=== PATIENT | female | born 1940 | race Caucasian/White ===

== ENCOUNTER 2020-03-09 13:25 | Outpatient (CLI) | payer MEDICARE, SELFPAY ==
--- NOTE | ~2020-03-09 | US_ITS ---
EXAMINATION: US carotid duplex BI DATE: 03/09/2020 14:05 INDICATION: Near syncope. Coronary artery disease. TECHNIQUE: Grayscale, color Doppler, and pulsed Doppler images of the cervical carotid arteries were obtained. The degree of vessel stenosis is placed in one of the following categories: normal, <50%, 5 0-69%, >=70% but less than near-occlusion, near-occlusion, or total occlusion. Note that percent sten osis relative to normal distal artery lumen diameter is indirectly measured from velocity measurement s as described by Roberto, et al. Radiology 2003; 229:340-346. COMPARISON: None. FINDINGS: RIGHT: The right common carotid artery (CCA) peak systolic velocity (PSV) is 113 cm/s. The right internal ca rotid artery (ICA) PSV is 64 cm/s. The right ICA end-diastolic velocity (EDV) is 10 cm/s. The right I CA/CCA PSV ratio is 0.6. Grayscale and color Doppler images yield an estimate of <50% diameter reduct ion from plaque in the ICA. The external carotid artery (ECA) PSV is 84 cm/s. There is antegrade flow in the right vertebral artery. LEFT: The left CCA PSV is 77 cm/s. The left ICA PSV is 54 cm/s. The left ICA EDV is 14 cm/s. The left ICA/C CA PSV ratio is 0.7. Grayscale and color Doppler images yield an estimate of <50% diameter reduction from plaque in the ICA. The ECA PSV is cm/s. There is antegrade flow in the left vertebral artery. IMPRESSION: 1. <50% stenosis in the right internal carotid artery. 2. <50% stenosis in the left internal carotid artery. Reviewed, dictated and finalized at location A.
== END 2020-03-09 13:26 | disposition home or self-care (01) ==
PROVIDERS: PCP Family Medicine; Visit Provider Internal Medicine Cardiovascular Disease
DX: I25.118 Atherosclerotic heart disease of native coronary artery with other forms of angina pectoris (principal); E78.5 Hyperlipidemia, unspecified; R55 Syncope and collapse; I65.23 Occlusion and stenosis of bilateral carotid arteries
CPT/HCPCS: 93880

== ENCOUNTER 2021-01-11 10:58 | Outpatient (CLI) | payer MEDICARE, MEDICAID, SELFPAY ==
--- NOTE | ~2021-01-11 | US_ITS ---
EXAMINATION: US venous doppler [facility] DATE: 01/11/2021 11:33 INDICATION: Left lower limb pain. TECHNIQUE: Grayscale ultrasound images without and with compression and Doppler ultrasound images of the left lower extremity veins were obtained. COMPARISON: Ultrasound 12/14/2015 FINDINGS: The visualized portions of left common femoral vein, profunda (deep) femoral vein, femoral vein, popl iteal vein, posterior tibial veins, and greater saphenous vein outflow are patent. IMPRESSION: 1. No deep venous thrombosis. Reviewed, dictated and finalized at location A.
--- NOTE | ~2021-01-11 | XR_ITS ---
EXAMINATION: XR lg joint inject/asp w image DATE: 01/11/2021 13:08 INDICATION: Left knee pain. TECHNIQUE: A time-out was performed to verify the patient's name, date of , and procedure to b e performed. The procedure including the risks, benefits, and alternatives was discussed with the pat ient. Risks discussed included bleeding and infection. The patient understood the risks and agreed to proceed. The skin overlying the left knee joint was prepped and draped in usual sterile fashion. A nesthetic was administered with 1% lidocaine subcutaneously. A 18 G needle was advanced under fluoro scopic guidance into the joint. Fluid was aspirated. There were no immediate complications. Fluorosco py exposure time was 0.0 minutes. The total number of images was 1. FINDINGS: Real-time fluoroscopy demonstrates a total left knee arthroplasty with localization of the knee joint. IMPRESSION: 1. Fluoroscopy guided left knee joint aspiration yielding 20 mL audrey-colored fluid. Reviewed, dictated and finalized at location A. IMPRESSION: 1. Fluoroscopy guided left knee joint aspiration yielding 20 mL audrey-colored f luid.
[2021-01-11 14:03] LABS: Crystals Synovial Fluid None Seen (None Seen)
[2021-01-11 14:11] LABS: Appearance Synovial Fluid Cloudy (Clear); Color Synovial Fluid Yellow (Colorless); Source Synovial Fluid Synovial fluid
[2021-01-11 14:12] LABS: Nucleated Cell Synovial Fluid 1641 /uL (0-200); RBC Synovial Fluid 9946 /uL (0-0)
[2021-01-11 14:14] LABS: Lymphocytes Synovial Fluid 64 %; Neutrophils Synovial Fluid 30 % (0-25)
[2021-01-11 14:15] LABS: Monocytes Synovial Fluid 6 %
== END 2021-01-11 10:59 | disposition home or self-care (01) ==
LOC: ANHIMG 11:00
PROVIDERS: PCP Family Medicine; Visit Provider Orthopaedic Surgery
DX: M79.662 Pain in left lower leg (principal); M25.562 Pain in left knee
CPT/HCPCS: 20610; 77002; 87070; 87075; 87205; 88108; 89051; 89060; 93971

== ENCOUNTER 2021-04-25 09:33 | Emergency (ER) | payer MEDICARE, MEDICAID, SELFPAY ==
--- NOTE | ~2021-04-25 | CT_ITS ---
EXAMINATION: CT abdomen pelvis w con EXAM DATE: 04/25/2021 11:25 INDICATION: RLQ pain . TECHNIQUE: Spiral CT of the abdomen and pelvis was performed following intravenous injection of 100 m L Omnipaque 350. Axial, coronal and sagittal images of the abdomen and pelvis were reviewed. The do se-length product (DLP) for this examination was 797.70 mGy-cm. The exposure was tailored according to patient size (auto mA exposure control), and iterative reconstruction (ASIR) was used as additiona l dose reduction technique. Comparison is made to prior examination from 03/14/2018. FINDINGS: The liver, spleen, adrenal glands and pancreas are unremarkable. Status post cholecystectom y. There is severe common bile duct and left liver lobe biliary dilation. Suspect choledocholithiasis . Progression in amount of dilation compared to 2018.Portal and splenic veins are patent. Kidneys en emilee symmetrically. There is no hydronephrosis. The uterus is not identified and has likely been surgically resected. The bladder is unremarkable. There is no retroperitoneal or pelvic lymphadenop athy. There is mild scattered arteriosclerotic disease. Surgical changes from right hemicolectomy with intact ileocolic anastomosis and also rectosigmoid joy stomosis. There is mild scattered colonic diverticulosis. There is no adjacent inflammatory change t o suggest diverticulitis. There is moderate-sized gastroesophageal hiatal hernia. There is expected amount of colonic stool. No free intraperitoneal gas. The heart is normal in size. Cardiac pacema ker/AICD leads. There are no pericardial or pleural effusions. The lung bases are unremarkable. Lum bar fusion hardware. IMPRESSION: 1. Chronic biliary dilation, pneumobilia with progression compared to 2018. Choledocholithiasis. 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 2. Colonic surgical changes and mild scattered diverticulosis. Reviewed, dictated and finalized at location B. IMPRESSION: 1. Chronic biliary dilation, pneumobilia with progression compared to 2018. Ch oledocholithiasis. Consider checking bilirubin to exclude acute obstruction. 2. Colonic surgical changes and mild scattered diverticulosis.
[2021-04-25 09:43] VITALS: BP 131/79; PULSE 63; RESP 16; TEMP 36.9; O2SAT 99
[2021-04-25 10:02] LABS: Basophils Absolute Auto 0.1 K/mm3 (0.0-0.1); Basophils Percent Auto 1.1 % (0.2-1.2); Eosinophils Absolute Auto 0.5 K/mm3 (0-0.3); Eosinophils Percent Auto 5.8 % (0-4.4); Hematocrit 40.9 % (37.0-47.0); Hemoglobin 12.8 g/dL (12.0-15.0); Immature Granulocyte Absolute 0.02 K/mm3 (0.00-0.031); Immature Granulocyte Percent A 0.2 % (0-0.5); Lymphocytes Absolute Auto 2.18 K/mm3 (0.9-3.2); Lymphocytes Percent Auto 23.9 % (18.3-44.2); Mean Corpuscular HGB Conc 31.3 g/dl (32-36); Mean Corpuscular Hemoglobin 29.2 pg (26-34); Mean Corpuscular Volume 93.2 fl (80-100); Monocytes Absolute Auto 0.7 K/mm3 (0.1-0.6); Monocytes Percent Auto 7.1 % (2.6-8.5); Neutrophils Absolute Auto 5.6 K/mm3 (1.3-6.7); Neutrophils Percent Auto 61.9 % (45.5-73.1); Platelet Count Result 348 k/mm3 (150-375); Red Blood Count 4.39 M/mm3 (4.2-5.4); Red Cell Distribution Width 12.5 % (11.5-14.5); White Blood Count 9.1 K/mm3 (4.5-10.0)
[2021-04-25 10:26] LABS: Alanine Aminotransferase 6 U/L (4-35); Albumin Level 4.4 g/dL (3.5-5.1); Alkaline Phosphatase 53 U/L (38-126); Anion Gap 10 mmol/L (8-16); Aspartate Amino Transferase 23 U/L (14-36); Bilirubin,Total 0.4 mg/dL (0.2-1.3); Blood Urea Nitrogen 23 mg/dL (7-17); Calcium 9.5 mg/dL (8.4-10.2); Carbon Dioxide 26 mmol/L (22-30); Chloride 104 mmol/L (98-107); Estimated CRCL calculation 47 ml/min; Estimated Glomerular Filt Rate 60; Glucose 101 mg/dL (65-110); Lipase 79 U/L (23-300); Potassium 4.7 mmol/L (3.4-5.0); Sodium 140 mmol/L (137-145)
[2021-04-25] MEDS: MORPHINE SULFATE (*CRX) 4 MG/ML INJ IV PUSH ×2 (11:12→13:52)
[2021-04-25] MEDS: ONDANSETRON INJ 4 MG/2 ML VIAL IV PUSH (11:12)
[2021-04-25 11:13] LABS: Add Urine Microscopic? YES; Appearance Urine Clear (Clear); Bilirubin Urine Negative (Negative); Blood Urine 1+ (Negative); Color Urine Yellow (Yellow); Glucose Urine UA Negative (Negative); Hyaline Casts Urine 30-49 /lpf; Ketones Urine Negative (Negative); Leukocyte Esterase Ur Negative LEU/UL (Negative); Mucus Urine Rare /lpf; Nitrate Urine Negative (Negative); Protein Urine Negative (Negative); Specific Grav Ur 1.024 (1.001-1.035); Squamous Epithelial Cell Urine Occasional /hpf (Few); Urobilinogen Urine Negative mg/dL (<2.0); WBC Urine 0-3 /hpf
[2021-04-25 12:50] VITALS: BP 194/64; PULSE 65; RESP 18; O2SAT 95
--- NOTE | 2021-04-25 13:29 | ED.GENADULT ---
HPI - General Adult General Chief complaint: Abdominal Pain Stated complaint: Abd Pain Time Seen by Provider: 04/25/21 10:47 History of Present Illness HPI narrative: Patient is a 80-year-old female who presents ER with abdominal pain worsening over the last month. Its burning like a hot poker is sticking in her. It is located specifically over a scar in her right lower abdomen. It is tender to touch and with any sort of movement. No known injury. Denies fevers or chills or sweats. No nausea/vomiting/diarrhea. She is not distended or bloated. No history of bowel obstruction. Has been taking [place] without relief of discomfort. Related Data Home Medications Medication Instructions Recorded Confirmed aspirin 81 mg tablet,delayed 81 mg PO DAILY 01/11/21 01/11/21 release atenolol 50 mg tablet 50 mg PO DAILY 01/11/21 01/11/21 carbidopa 25 mg-levodopa 100 mg 1 tablet PO QHS 01/11/21 01/11/21 tablet hydrocodone 10 mg-acetaminophen 1 tablet PO QHS PRN 01/11/21 01/11/21 325 mg tablet levothyroxine 50 mcg capsule 50 mcg PO DAILY 01/11/21 01/11/21 losartan 50 mg tablet 50 mg PO DAILY 01/11/21 01/11/21 omeprazole 40 mg capsule,delayed 40 mg PO DAILY 01/11/21 01/11/21 release torsemide 10 mg tablet 10 mg PO QAM 01/11/21 01/11/21 Allergies Allergy/AdvReac Type Severity Reaction Status Date / Time meperidine Allergy Mild Rash Verified 04/25/21 10:44 celecoxib Allergy Unknown Unknown Verified 04/25/21 10:44 Sulfa (Sulfonamide Allergy Unknown Rash Verified 04/25/21 10:44 Antibiotics) codeine AdvReac Unknown Gastrointestinal Verified 04/25/21 10:44 Upset morphine AdvReac Unknown Nausea and Verified 04/25/21 10:44 Vomiting Review of Systems Review of Systems: All systems reviewed & are unremarkable except as noted in HPI and below Constitutional: Constitutional: Denies chills, Denies fever(s) and Denies weakness ENT: Denies nasal congestion and Denies sore throat Respiratory: Respiratory: Denies cough and Denies dyspnea Gastrointestinal: Gastrointestinal: Reports abdominal pain, Denies diarrhea, Denies nausea and Denies vomiting Genitourinary: Genitourinary: Denies nocturia, Denies dysuria and Denies flank pain Musculoskeletal: Musculoskeletal: Denies back pain and Denies muscle cramps PMFSH Past Medical History Medical History (Updated 04/25/21 @ 13:35 by Blane Miller MD) Anemia Arthritis History of blood clots Pacemaker Surgical History Surgical History (Updated 04/25/21 @ 13:31 by Blane Miller MD) H/O hernia repair H/O: hysterectomy History of cholecystectomy History of total knee replacement Right 15 years ago, left [address] Pelayo in [place] Family History Family History Mother Family history of Alzheimer's disease Father Family history of throat cancer Other Diabetes mellitus Social History Social History Smoking status: Never smoker Alcohol intake: current Gender identity (if verbalized by the patient): Female Exam Narrative: GENERAL: Well-appearing, well-nourished, and in no acute distress. HEAD: Normocephalic, atraumatic. CHEST: Clear to auscultation. No respiratory distress. HEART: Regular rate and rhythm. Normal peripheral pulses. ABDOMEN: Soft, moderately tender to palpation in the right lower quadrant over a surgical scar. No right upper quadrant tenderness. Nondistended, normal active bowel sounds. There is no palpable hernia or defect within the abdominal wall. EXTREMITIES: Normal range of motion. No edema. SKIN: Warm, dry, no rash. NEURO: Alert and oriented x3. PSYCH: Normal mood and affect. Course Course Emergency Course: Patient informed results. Recommend follow-up with general surgery given discomfort over previous surgical site. Discharge home. Vital Signs Vital signs: Vital Signs Temperature 98.4 F
[2021-04-25 14:10] VITALS: BP 116/71; PULSE 67; RESP 18; O2SAT 96
== END 2021-04-25 14:25 | disposition home or self-care (01) ==
PROVIDERS: Emergency Provider Emergency Medicine; PCP Family Medicine
DX: R10.9 Unspecified abdominal pain (principal); M19.90 Unspecified osteoarthritis, unspecified site; Z95.0 Presence of cardiac pacemaker; Z96.653 Presence of artificial knee joint, bilateral; Z86.2 Personal history of diseases of the blood and blood-forming organs and certain disorders involving the immune mechanism; Z79.82 Long term (current) use of aspirin; K80.50 Calculus of bile duct without cholangitis or cholecystitis without obstruction; K83.8 Other specified diseases of biliary tract
CPT/HCPCS: 36415; 74177; 80053; 81001; 83690; 85025; 96374; 96375; 96376; 99284; J2270; J2405; Q9967

== ENCOUNTER → 2021-06-03 02:30 | Outpatient (CLI) | payer MEDICARE, SELFPAY ==
[2021-06-03 17:01] LABS: SARS-CoV-2 RNA PCR Negative
== END ==
PROVIDERS: PCP Family Medicine; Visit Provider Specialist
DX: Z01.812 Encounter for preprocedural laboratory examination (principal); Z20.822 Contact with and (suspected) exposure to COVID-19
CPT/HCPCS: C9803; U0003; U0005

== ENCOUNTER 2021-06-06 02:09 | Day surgery (SDC) | payer OTHER, SELFPAY ==
[2021-06-03 15:34] VITALS: BMI 29.7
[2021-06-06 09:13] LABS: Basophils Absolute Auto 0.1 K/mm3 (0.0-0.1); Basophils Percent Auto 1.2 % (0.2-1.2); Eosinophils Absolute Auto 0.5 K/mm3 (0-0.3); Hematocrit 37.1 % (37.0-47.0); Hemoglobin 11.8 g/dL (12.0-15.0); Immature Granulocyte Absolute 0.01 K/mm3 (0.00-0.031); Immature Granulocyte Percent A 0.1 % (0-0.5); Lymphocytes Absolute Auto 1.64 K/mm3 (0.9-3.2); Lymphocytes Percent Auto 21.9 % (18.3-44.2); Mean Corpuscular HGB Conc 31.8 g/dl (32-36); Mean Corpuscular Hemoglobin 28.3 pg (26-34); Monocytes Absolute Auto 0.5 K/mm3 (0.1-0.6); Monocytes Percent Auto 6.8 % (2.6-8.5); Neutrophils Absolute Auto 4.8 K/mm3 (1.3-6.7); Platelet Count Result 380 k/mm3 (150-375); Red Blood Count 4.17 M/mm3 (4.2-5.4); Red Cell Distribution Width 13.2 % (11.5-14.5); White Blood Count 7.5 K/mm3 (4.5-10.0)
[2021-06-06 09:22] VITALS: BP 147/73; PULSE 75; RESP 15; TEMP 36.6; O2SAT 97; BMI 30.9
[2021-06-06 09:22] LABS: INR 0.9; Prothrombin Time 12.4 Seconds (11.1-14.7)
[2021-06-06 09:30] LABS: Anion Gap 6 mmol/L (8-16); Blood Urea Nitrogen 14 mg/dL (7-17); Carbon Dioxide 29 mmol/L (22-30); Chloride 106 mmol/L (98-107); Estimated CRCL calculation 54 ml/min; Estimated Glomerular Filt Rate > 60; Glucose 96 mg/dL (65-110); Potassium 4.2 mmol/L (3.4-5.0); Sodium 141 mmol/L (137-145)
--- NOTE | 2021-06-06 10:27 | WPDMODSED ---
Moderate Sedation Note-Pt Data Patient Data Diagnosis: permanent dual-chamber pacemaker at [facility] Present Complaint: no complaints Procedure to be performed/Plan: pacemaker generator change Allergies Allergy/AdvReac Type Severity Reaction Status Date / Time meperidine Allergy Mild Rash Verified 06/03/21 15:45 celecoxib Allergy Unknown Unknown Verified 06/03/21 15:45 Sulfa (Sulfonamide Allergy Unknown Rash Verified 06/03/21 15:45 Antibiotics) codeine AdvReac Unknown Gastrointestinal Verified 06/03/21 15:45 Upset morphine AdvReac Unknown Nausea and Verified 06/03/21 15:45 Vomiting Home Medications Medication Instructions Recorded Confirmed Type aspirin 81 mg tablet,delayed 81 mg PO DAILY 01/11/21 06/06/21 History release atenolol 50 mg tablet 50 mg PO DAILY 01/11/21 06/06/21 History carbidopa 25 mg-levodopa 100 mg 1 tablet PO QHS 01/11/21 06/06/21 History tablet hydrocodone 10 mg-acetaminophen 1 tablet PO QHS 01/11/21 06/06/21 History 325 mg tablet levothyroxine 50 mcg capsule 50 mcg PO DAILY 01/11/21 06/06/21 History losartan 50 mg tablet 50 mg PO DAILY 01/11/21 06/06/21 History omeprazole 40 mg capsule,delayed 40 mg PO DAILY 01/11/21 06/06/21 History release apixaban 2.5 mg tablet 2.5 mg PO BID 05/19/21 06/06/21 History Valtrex 1 g PO PRN 06/03/21 06/03/21 History cholecalciferol (vitamin D3) 5,000 unit PO DAILY 06/03/21 06/06/21 History torsemide 10 mg PO DAILY 06/03/21 06/06/21 History Sedation/Anesthesia: No previous sedation/anesthesia problems (including family history). [facility] Past Medical History Medical History (Updated 05/26/21 @ 10:34 by Eve Chapa) Anemia Arthritis History of DVT of lower extremity Pacemaker Surgical History Surgical History (Updated 05/24/21 @ 15:38 by Rachid Owens MD) H/O hernia repair H/O: hysterectomy History of cholecystectomy History of colon resection sigmoidectomy 2007 diverticulitis laparoscopic right colectomy 2015 cecal polyp History of incisional hernia repair laparoscopic repair with physio mesh 2014 History of total knee replacement Right 15 years ago, left [address] Pelayo in [place] Family History Family History Mother Family history of Alzheimer's disease Father Family history of throat cancer Other Diabetes mellitus Social History Social History Smoking status: Never smoker Alcohol intake: never Living arrangements: alone Gender identity (if verbalized by the patient): Female Mod Sed Physical Exam Physical Exam Pre Procedural Exam: Normal: Appearance, Neck, Throat, Airway, Lungs, Heart Size, Heart Rate, Heart Rhythm, Neuro Exam and Extremities Hours since solid foods: 12 Hours since liquid intake: 12 Mallampati Classification: class II Internal Medicine - PN: Obj Da Vital Signs Vital Signs: Vital Signs - 24 hr 06/06/21 09:22 Temperature 36.6 C Pulse Rate 75 Respiratory Rate 15 Blood Pressure 147/73 H Pulse Oximetry 97 Labs CBC & Chem 7: 06/06/21 08:59 06/06/21 08:59 Labs: Laboratory Results - last 24 hr 06/06/21 06/06/21 06/06/21 08:59 08:59 08:59 WBC 7.5 RBC 4.17 L Hgb 11.8 L Hct 37.1 MCV 89.0 MCH 28.3 MCHC 31.8 L RDW 13.2 Plt Count 380 H MPV 9.0 Immature Gran % (Auto) 0.1 Neut % (Auto) 64.0 Lymph % (Auto) 21.9 [place] % (Auto) 6.8 Eos % (Auto) 6.0 H Baso % (Auto) 1.2 Lymph # (Auto) 1.64 [place] # (Auto) 0.5 Eos # (Auto) 0.5 H Baso # (Auto) 0.1 Abs Immat Gran (auto) 0.01 Absolute Neuts (auto) 4.8 Absolute Nucleated RBC 0.0 Nucleated RBC % 0.0 PT 12.4 INR 0.9 Sodium 141 Potassium 4.2 Chloride 106 Carbon Dioxide 29 Anion Gap 6 L BUN 14 D Creatinine 0.80 Estim Creat Clear Calc 54 Estimated GFR > 6
--- NOTE | 2021-06-06 11:14 | P.PCNCC_ITS ---
Cardiac Cath Procedure Note Date of procedure:: 06/06/21 Performing physician:: José Blake MD Indication:: permanent dual-chamber pacemaker at [facility] Brief clinical history:: this is a 80-year-old lady with a permanently implanted dual-chamber Medtronic pacemaker which is functioning normally but is at [place]. She is admitted electively for a generator change Procedure Procedure performed:: explantation of depleted pulse generator implantation of new pulse generator Sedation/Medication given:: fentanyl 50 mg Versed 4 mg case start time 10:31 a.m. case end time 11:07 a.m. sedation provided by Sheba العلي RN, trained observer Access site:: existing pocket in the right subclavian fossa Estimated blood loss:: minimal Procedure note:: patient was brought to the cardiac catheterization lab in the postabsorptive state the right anterior chest wall was prepped and draped in the usual fashion. The previously implanted pacemaker incision was easily visible and the device was easily palpable in the pocket. 1% lidocaine was infiltrated locally for local anesthesia. After this an incision was made over the device using the plasma blade. Electrocautery was used to provide cutaneous hemostasis. The PlasmaBlade was used to dissect the subcutaneous tissue and the fibrous pocket. After this was opened the pacemaker device in the attached leads were removed from the pocket and were visually intact and unremarkable in appearance. The device was disconnected from the chronic leads using the torque wrench the new device detailed below was a connected to the lead using the torque wrench device. The pocket was then irrigated using Ancef infused saline. After this the I device was placed in a Tyrex antibiotic sleeve. The device in the sleeve were then placed back into the pocket which was then closed in layers. 3-0 Vicryl was used in interrupted fashion for the subcutaneous tissue and 4-0 Vicryl in a running subcuticular fashion for the skin. A drop of bio glue was placed on the lateral aspect of the incision and there was then covered with an Aquacel dressing. Procedure was well tolerated and uncomplicated. Findings:: The explanted device is a Medtronic dual-chamber pacemaker model ADDR01 serial number, [id number] originally 04/28/2010. The new pacemaker device is a Medtronic dual-chamber pacemaker model W1DR01, serial number [id number]. device is programmed in the DDD mode lower rate limit 60 upper rate limit 130 paced AV delay 180 millisecond sensed AV delay 150 psi. The chronically implanted atrial lead is Medtronic model 16452, serial number [id number] the P-waves are sensed at 3 mV pacing impedance 323 Ohms threshold 0 .5 volts at 0 4 millisecond. The chronically implanted ventricular lead is a Medtronic model 5076-52 serial number, [id number]. [place] R-waves are sensed at 2.8 mV pacing impedance 3 her threshold 0.75 volts at 0.4 millisecond. Conclusion:: 1. Uncomplicated explantation of depleted permanent pacemaker pulse generator 2. uncomplicated implantation of new dual-chamber pulse generator using the chronically implanted leads for ongoing treatment of bradycardia in this 80-year-old lady. José Blake MD FACC
[2021-06-06 11:30] VITALS: BP 124/65; PULSE 72; RESP 18; O2SAT 96
[2021-06-06 11:45] VITALS: BP 100/86; PULSE 66; RESP 19; O2SAT 97
[2021-06-06 12:00] VITALS: BP 125/63; PULSE 63; RESP 19; O2SAT 100
[2021-06-06 12:15] VITALS: BP 125/66; PULSE 61; RESP 17; O2SAT 98
--- NOTE | 2021-06-06 13:54 | PM.DS ---
DS: Admitting Diagnosis Discharge Date June 06, 2021 Admitting Diagnosis Pacemaker at [facility] DS: Discharge Diagnosis Discharge Diagnosis (1) Pacemaker generator end of life: Code(s): Z45.010 - Encounter for checking and testing of cardiac pacemaker pulse generator [battery] Status: Acute DS: Summary Hospital Course Reason for hospitalization: Pacemaker generator change Hospital Course: This is a 80-year-old patient follows with Dr. Iglesias of our practice with chronically implanted dual-chamber Medtronic pacemaker device. In routine office follow-up the device was at [facility] and elective replacement was recommended. The patient was admitted to the hospital for the procedure which was performed uneventfully. Splint please see the separately dictated operative note for the details. She is being discharged after the procedure she will receive prescription for Keflex 500 mg p.o. q.12 hours x5 doses. She will receive appointment 1 week from today for a pacemaker wound check appointment and dressing removal. Status at Discharge Functional status at discharge: independent ambulation Overall status at discharge: patient is back to baseline Time Spent with Patient Time attestation: Total time spent providing and/or coordinating discharge services: Exam Const: General: comfortable and no acute distress HENMT: Mouth: Yes moist mucous membranes Eyes: Sclera: sclerae normal Pupils: Equal, round and reactive pupils present Neck: Neck: supple and no JVD Other: Carotid pulses normal no bruits Resp: Effort & Inspection: normal respiratory effort Auscultation: clear to auscultation bilaterally Other: Pacemaker dressing clean and dry Cardio: Rate: regular rate Rhythm: regular rhythm GI: GI Palp: Yes Soft to palpation Auscultation: normal bowel sounds Skin: General skin exam: normal color Neuro: General: gait normal Extrem: General: normal to inspection DS: Data Data Completed and Pending Labs on day of discharge: Labs from last 24 hours 06/06/21 06/06/21 06/06/21 08:59 08:59 08:59 WBC 7.5 RBC 4.17 L Hgb 11.8 L Hct 37.1 MCV 89.0 MCH 28.3 MCHC 31.8 L RDW 13.2 Plt Count 380 H MPV 9.0 Immature Gran % (Auto) 0.1 Neut % (Auto) 64.0 Lymph % (Auto) 21.9 [place] % (Auto) 6.8 Eos % (Auto) 6.0 H Baso % (Auto) 1.2 Lymph # (Auto) 1.64 [place] # (Auto) 0.5 Eos # (Auto) 0.5 H Baso # (Auto) 0.1 Abs Immat Gran (auto) 0.01 Absolute Neuts (auto) 4.8 Absolute Nucleated RBC 0.0 Nucleated RBC % 0.0 PT 12.4 INR 0.9 Sodium 141 Potassium 4.2 Chloride 106 Carbon Dioxide 29 Anion Gap 6 L BUN 14 D Creatinine 0.80 Estim Creat Clear Calc 54 Estimated GFR > 60 Glucose 96 Calcium 10.0 Discharge Plan Discharge Patient Disposition: Home, Self-Care Discharge Instructions: You have a follow up appointment for 06/13/21 at 1:30 pm for a wound check with the nurse in the [facility]. Please arrive 10-15 minutes early to check in. Stand Alone Forms: General Discharge Instructions Discharge Medications: New cephalexin 500 mg Capsule 500 mg PO Q12HR Qty: 5 RF: 0 Continued losartan 50 mg tablet 50 mg PO DAILY RF: 0 atenolol 50 mg tablet 50 mg PO DAILY RF: 0 carbidopa-levodopa 25-100 mg tablet 1 tablet PO QHS RF: 0 levothyroxine 50 mcg capsule 50 mcg PO DAILY RF: 0 omeprazole 40 mg capsule,delayed release(DR/EC) 40 mg PO DAILY RF: 0 hydrocodone-acetaminophen 10-325 mg tablet 1 tablet PO QHS RF: 0 aspirin [Adult Aspirin Regimen] 81 mg tablet,delayed release (DR/EC) 81 mg PO DAILY RF: 0 torsemide 10 mg tablet 10 mg PO DAILY RF: 0 cholecalciferol (vitamin D3) 125 mcg (5,000 unit) Tablet 5,000 unit PO DAILY RF: 0 Valtrex 1 g PO PRN RF: 0 Held Eliquis 2.5 mg tablet 2.5 mg PO BID RF: 0 Hold Instructions: Resume o
--- NOTE | 2021-06-07 13:22 | SUR.PHASEII ---
Contacted pt for follow up phone call one day post procedure. Pt stated she was having heavy chest pressure in the middle of her chest. Stating it feels like someone is sitting on her chest. She did not feel like it was her incision site - it is tender to touch but not the same pain she is having in her mid chest. She took 2 pain pills just prior to me contacting her and they had not yet helped the pain she was feeling in her chest. She had single piece of toast for breakfast and half cup of soup for lunch - she said her appetite is not very good. She also stated she felt light headed and a little dizzy. Discussed the situation with Dr Iglesias and he recommended she go to the Emergency room right away. Pt was hesitant to go to the ED - but was strongly encouraged to do so.
== END 2021-06-06 14:20 | disposition home or self-care (01) ==
PROVIDERS: PCP Family Medicine; Visit Provider Specialist
PROC: 0JPT0PZ Removal of Cardiac Rhythm Related Device from Trunk Subcutaneous Tissue and Fascia, Open Approach (ICD-10-PCS; CPT 33228; principal; 2021-06-06 10:00)
DX: Z45.010 Encounter for checking and testing of cardiac pacemaker pulse generator [battery] (principal); D64.9 Anemia, unspecified; Z79.01 Long term (current) use of anticoagulants; Z79.82 Long term (current) use of aspirin; Z86.718 Personal history of other venous thrombosis and embolism; Z90.49 Acquired absence of other specified parts of digestive tract
CPT/HCPCS: 33228; 36415; 80048; 85025; 85610; C1785; J0690; J2250; J3010; J7040

== ENCOUNTER 2021-06-07 14:54 | Observation (INO) | payer OTHER, SELFPAY ==
[2021-06-07] VITALS (16 sets, daily range): BP systolic 102–141; BP diastolic 48–74; PULSE 60–95; RESP 12–20; TEMP 35.9; O2SAT 97–100; BMI 33.3
--- NOTE | ~2021-06-07 | CT_ITS ---
EXAMINATION: CTA chest PE protocol DATE: 06/07/2021 17:32 INDICATION: Chest pain today. Pacemaker placement yesterday. TECHNIQUE: Computed tomography angiography (CTA) of the chest was performed with 100 mL Omnipaque-350 intravenous contrast timed to evaluate the pulmonary arteries. Coronal maximum intensity projection 3D-reconstructions were created by the technologist. Automated exposure control and iterative reconst ruction technique were employed. Exam dose: 323.38 mGy-cm total exam DLP. COMPARISON: 06/07/2021 AP chest 04/25/2021 CT abdomen pelvis FINDINGS: There is mild pericardial effusion, new since 04/25/2021. Cardiomegaly. No thoracic aortic aneurysm or dissection. Mild nonspecific bilateral hilar and mediastinal lymph node prominence. There are multiple calcified subcarinal lymph nodes and approximately 2 or 3 calcified left hilar nodes in addition to a calcified left lower lobe pulmonary granuloma, consistent with old granulomatous disease. Right transvenous pacemaker device with right atrial and right ventricular apex leads. 1 cm irregular left lower lobe soft tissue mass; left lower lobe lung cancer is not excluded. No prio r CT chest examination is available for comparison. There is linear scarring in both apical areas. There is minimal bilateral lower lobe dependent atelec tasis. Large sliding hiatal hernia. Incidentally noted is chronic prominent dilatation of the common bile duct, common hepatic and left b ile ducts and prominent pneumobilia, reported on 04/25/2021 CT abdomen pelvis examination. Lumbar spinal fusion hardware is noted on the lowermost images. No suspicious osteolytic or osteoblastic lesions are noted. IMPRESSION: Irregular 1 cm left lower lobe pulmonary mass lesion; lung cancer is not excluded. [place] rison with prior CT chest examinations would be helpful, if available. Consider PET/CT imaging. No evidence of pulmonary embolism Interval mild pericardial effusion since 04/25/2021 Cardiomegaly Right dual lead pacemaker device with leads in right atrium and right ventricle. Chronic prominent dilatation of the common bile duct and left bile ducts, pneumobilia Large hiatal hernia Reviewed, dictated and finalized at [facility]. Reviewed, dictated and finalized at [facility]. IMPRESSION: Irregular 1 cm left lower lobe pulmonary mass lesion; lung cancer is not excluded. Comparison with prior CT chest examinations would be helpful, if available. Consider PET/CT imaging. No evidence of pulmonary embolism Interval mild pericardial effusion since 04/25/2021 Cardiomegaly Right dual lead pacemaker device with leads in right atrium and right ventricle . Chronic prominent dilatation of the common bile duct and left bile ducts, pneum obilia Large hiatal hernia
--- NOTE | ~2021-06-07 | XR_ITS ---
EXAMINATION: XR chest 1V INDICATION: Dizziness and chest spasms, pacemaker insertion yesterday TECHNIQUE: AP view the chest is obtained at 1528 hours COMPARISON: 03/29/2015 FINDINGS: The lungs are free of acute opacities. There is no pleural effusion or pneumothorax. The he art size is normal. A dual-lead cardiac pacemaker of the right chest wall ends with leads in expected locations. A moderate-sized sliding hiatal hernia is noted. There are partially imaged changes of po sterior fusion procedures of the lumbar spine. IMPRESSION: 1. No acute cardiopulmonary abnormality. Reviewed, dictated and finalized at [facility].
--- NOTE | 2021-06-07 15:06 | ECG_ITS ---
Measurements Intervals [place] Rate: 68 P: 93 TX: 258 QRS: 13 QRSD: 89 T: 54 QT: 358 QTc: 382 Interpretive Statements ELECTRONIC ATRIAL PACEMAKER INCOMPLETE RIGHT BUNDLE BRANCH BLOCK LOW QRS VOLTAGE IN PRECORDIAL LEADS BASELINE ARTIFACT- I, II, III, AVR, AVL, AVF, 1-V2 BORDERLINE ECG Electronically Signed On 06-07-2021 15:10:01 CDT by Bayron Clemente D.O.
--- NOTE | 2021-06-07 15:09 | ED.CHESTPAIN ---
HPI - Chest Pain General Chief Complaint: Chest Pain Stated Complaint: Chest pain Time Seen by Provider: 06/07/21 15:09 Source: patient Mode of arrival: ambulatory Limitations: no limitations History of Present Illness HPI narrative: Patient is a 80-year-old female with a history of hypertension, dual-chamber Medtronic pacemaker, replacement yesterday with Dr. Blake, who presents for evaluation of chest pain. Patient states chest pain started on 11 this morning, described as pressure nature over the center of her chest without radiation to the back. Patient does report bilateral neck pain. She denies nausea, vomiting, shortness of breath. She does report increased pain with movement. States that pain is sharp and makes her jump. She states that she does have pain over the pacemaker site, but states that is more of a soreness in different from her central chest pain. She denies cough. No leg swelling or calf pain. No fever, chills, rhinorrhea. No radiation of pain to the back. She denies recent food indiscretions, epigastric pain. No diaphoresis. Patient denies history of heart attack. States she has a pacemaker because the bottom part of her heart stopped working. Patient has been compliant with her medication. Patient states she felt well after replacement surgery yesterday. 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 Related Data Home Medications Medication Instructions Recorded Confirmed aspirin 81 mg tablet,delayed 81 mg PO DAILY 01/11/21 06/06/21 release atenolol 50 mg tablet 50 mg PO DAILY 01/11/21 06/06/21 carbidopa 25 mg-levodopa 100 mg 1 tablet PO QHS 01/11/21 06/06/21 tablet hydrocodone 10 mg-acetaminophen 1 tablet PO QHS 01/11/21 06/06/21 325 mg tablet levothyroxine 50 mcg capsule 50 mcg PO DAILY 01/11/21 06/06/21 losartan 50 mg tablet 50 mg PO DAILY 01/11/21 06/06/21 omeprazole 40 mg capsule,delayed 40 mg PO DAILY 01/11/21 06/06/21 release apixaban 2.5 mg tablet 2.5 mg PO BID 05/19/21 06/06/21 Valtrex 1 g PO PRN 06/03/21 06/03/21 cholecalciferol (vitamin D3) 5,000 unit PO DAILY 06/03/21 06/06/21 torsemide 10 mg PO DAILY 06/03/21 06/06/21 Allergies Allergy/AdvReac Type Severity Reaction Status Date / Time meperidine Allergy Mild Rash Verified 06/03/21 15:45 celecoxib Allergy Unknown Unknown Verified 06/03/21 15:45 Sulfa (Sulfonamide Allergy Unknown Rash Verified 06/03/21 15:45 Antibiotics) codeine AdvReac Unknown Gastrointestinal Verified 06/03/21 15:45 Upset morphine AdvReac Unknown Nausea and Verified 06/03/21 15:45 Vomiting Review of Systems Review of Systems: CONSTITUTIONAL: Denies fever, chills, or sweats. EYES: Denies visual changes, redness, or discharge. ENT: Denies rhinorrhea, congestion, sore throat, or otalgia. CARDIOVASCULAR: Reports central chest pain, denies palpitatons, denies edema RESPIRATORY: Denies cough or dyspnea. GASTROINTESTINAL: Denies abdominal pain, nausea, vomiting, or diarrhea. GENITOURINARY: Denies dysuria or hematuria. SKIN: Denies rash or itching. MUSCULOSKELETAL: Denies back pain, joint pain, or myalgia. Reports lightheadedness NEUROLOGIC: Denies headache, numbness, or weakness. [facility] Past Medical History Medical History Anemia Arthritis History of DVT of lower extremity Pacemaker Surgical History Surgical History H/O hernia repair H/O: hysterectomy History of cholecystectomy History of colon resection sigmoidectomy 2008 diverticulitis laparoscopic right colectomy 2015 cecal polyp History of incisional hernia repair laparoscopic repair with physio mesh 2014 History of total knee replacement Right 15 years ago, left [address] Pelayo in [place] Family History Family History Mother Family history of Alzheimer's disease
[2021-06-07] MEDS: MORPHINE SULFATE (*CRX) 4 MG/ML INJ IV PUSH (15:45)
[2021-06-07] MEDS: SODIUM CHLORIDE 0.9% IV 500 ML 999 ML IV CONT ×2 (15:45→16:32)
--- NOTE | 2021-06-07 15:50 | PC.NURSE ---
Pt states she has been experiencing chest pain that continues to increase, pt states pacemaker Medtronic placed yesterday after replacing last one she had for 11yrs,
[2021-06-07] MEDS: ASPIRIN 81 MG CHEWABLE TABLET 324 MG PO (16:03)
[2021-06-07] MEDS: ONDANSETRON INJ 4 MG/2 ML VIAL IV PUSH ×2 (16:17→16:31)
[2021-06-07 16:20] LABS: Basophils Absolute Auto 0.1 K/mm3 (0.0-0.1); Eosinophils Absolute Auto 0.4 K/mm3 (0-0.3); Eosinophils Percent Auto 4.3 % (0-4.4); Hematocrit 32.6 % (37.0-47.0); Hemoglobin 10.6 g/dL (12.0-15.0); Immature Granulocyte Absolute 0.02 K/mm3 (0.00-0.031); Immature Granulocyte Percent A 0.2 % (0-0.5); Lymphocytes Absolute Auto 2.26 K/mm3 (0.9-3.2); Lymphocytes Percent Auto 24.5 % (18.3-44.2); Mean Corpuscular HGB Conc 32.5 g/dl (32-36); Mean Corpuscular Hemoglobin 28.4 pg (26-34); Mean Corpuscular Volume 87.4 fl (80-100); Monocytes Absolute Auto 0.7 K/mm3 (0.1-0.6); Monocytes Percent Auto 7.3 % (2.6-8.5); Neutrophils Absolute Auto 5.8 K/mm3 (1.3-6.7); Neutrophils Percent Auto 62.7 % (45.5-73.1); Platelet Count Result 358 k/mm3 (150-375); Red Blood Count 3.73 M/mm3 (4.2-5.4); Red Cell Distribution Width 13.2 % (11.5-14.5); White Blood Count 9.2 K/mm3 (4.5-10.0)
[2021-06-07 16:26] LABS: INR 1.1; Prothrombin Time 14.4 Seconds (11.1-14.7)
[2021-06-07 16:27] LABS: Partial Thromboplastin Time 32.6 SECONDS (22.3-36.8)
[2021-06-07 16:42] LABS: Alanine Aminotransferase 9 U/L (4-35); Albumin Level 4.1 g/dL (3.5-5.1); Alkaline Phosphatase 45 U/L (38-126); Anion Gap 5 mmol/L (8-16); Aspartate Amino Transferase 21 U/L (14-36); Bilirubin,Total 0.3 mg/dL (0.2-1.3); Blood Urea Nitrogen 17 mg/dL (7-17); Calcium 9.7 mg/dL (8.4-10.2); Carbon Dioxide 30 mmol/L (22-30); Chloride 103 mmol/L (98-107); Estimated CRCL calculation 47 ml/min; Estimated Glomerular Filt Rate 60; Glucose 95 mg/dL (65-110); Potassium 4.6 mmol/L (3.4-5.0); Sodium 138 mmol/L (137-145)
[2021-06-07 16:54] LABS: NT Pro B Type Natriuretic Pept 178 pg/mL (5-100); Troponin I < 0.012 ng/mL (0.000-0.034)
--- NOTE | 2021-06-07 17:04 | PC.NURSE ---
Pt continues to state she feels chest pain, Dr. Tinajero aware
[2021-06-07] MEDS: HYDROmorphone HCL INJ (*CRX) 1 MG/ML SYR 0.5 MG IV PUSH ×2 (17:12→18:02)
--- NOTE | 2021-06-07 20:24 | PM.IMHP ---
H&P: HPI History of Present Illness Date/Time: 06/07/21 20:24 Chief Complaint: CHEST PAIN Narrative: This is a 80-year-old female with past medical history significant for sick sinus syndrome status post pacemaker placement, hypertension, [place], coronary artery disease, degenerative joint disease. Patient just had her pacemaker generator replaced with no complications the day before she comes back to the emergency room after she called the office for a quick hotline checkup and was advised to come to the emergency room after she complained of retrosternal chest pain for the last several hours. Patient states that taking a deep breath makes it worse it is relieved with position changes by sitting upright, pain is localized to the retrosternal area, she denies any diaphoresis ,lightheadedness shortness of breath, palpitations, nausea, vomiting ,abdominal pain, she is rating her pain a 10/10 in intensity and has been present ever since in the morning has not completely gone away with pain medication but has taking the edge off with Dilaudid she denies any chills, any rigors ,any PND or orthopnea ,no cough or sputum production. Preliminary workup was significant for chest x-ray with no acute cardiopulmonary abnormality, a CT angio of the chest was negative for pulmonary embolism however showed large hiatal hernia and a lung mass amongst other unremarkable findings. Decision has been made to admit the patient for further evaluation treatment and management. Review of Systems Review of Systems: Chest pain Constitutional: Constitutional: Denies chills, Denies fatigue, Denies fever(s), Denies lethargy, Denies night sweats and Denies weakness Eyes: Eyes: Denies change in vision ENT: Denies dysphagia, Denies vertigo, Denies dizziness, Denies nasal congestion, Denies nasal discharge, Denies nasal obstruction and Denies odynophagia Cardiovascular: Cardiovascular: Denies irregular heart rhythm, Denies claudication, Denies leg edema, Denies lightheadedness, Denies radiating jaw, neck or arm pain, Denies palpitations, Denies dyspnea, Denies dyspnea on exertion and Denies orthopnea Respiratory: Respiratory: Denies cough and Denies dyspnea Gastrointestinal: Gastrointestinal: Denies abdominal pain, Denies dyspepsia, Denies heartburn, Denies diarrhea, Denies nausea and Denies vomiting Genitourinary: Genitourinary: Reports no additional female genitourinary complaints and Reports as per HPI Musculoskeletal: Musculoskeletal: Reports no additional musculoskeletal complaints and Reports as per HPI Integumentary/Breasts: Skin/Breast: Denies rash and Denies wounds Neurologic: Denies focal weakness and Denies Sensory deficit (Neuro) Psychiatric: Psychiatric: Reports no additional psychiatric complaints and Reports as per HPI Endocrine: Endocrine: Reports no additional endocrine complaints and Reports as per HPI Hematologic/Lymphatic: Hematologic/Lymphatic: Reports no additional hematologic/lymphatic complaints and Reports as per HPI Allergic/Immunologic: Allergic/Immunologic: Reports no additional allergic/immunologic complaints and Reports as per HPI PMFSH Past Medical History Medical History Anemia Arthritis History of DVT of lower extremity Pacemaker Surgical History Surgical History H/O hernia repair H/O: hysterectomy History of cholecystectomy History of colon resection sigmoidectomy 2008 diverticulitis laparoscopic right colectomy 2015 cecal polyp History of incisional hernia repair laparoscopic repair with physio mesh 2014 History of total knee replacement Right 15 years ago, left [address] Pelayo in [place] Family History Family History Mother Family history of Alzheimer's disease Father Family history of throat cancer Other Diabetes mellitus Social History
--- NOTE | 2021-06-07 20:27 | ADMGEN ---
This patient, Kenyetta Chappell, was admitted to IMU Room 206-01. Patient/family oriented to hospital policies and general routines including ID bracelet, bed and alarms, visiting hours, pain management, procedures, bathroom and other care routines, personal items, smoking policy, room service/diet, and visiting hours. Information on how to activate the Rapid Response Team has been discussed. Patient/Family are encouraged to report perceived risks to care and to ask questions if they do not understand what they are told or what they should do. report from Margot VIERA
[2021-06-07 20:59] LABS: Troponin I < 0.012 ng/mL (0.000-0.034)
[2021-06-07] MEDS: ACETAMINOPHEN 325 MG TABLET 650 MG PO (23:25)
[2021-06-07] MEDS: BELLADONNA ALK/PHENOB ELIX 10 ML, MAG HYDROX/ALUMINUM HYD/SIMETH 30 ML, LIDOCAINE HCL 2... PO (23:26)
[2021-06-07] MEDS: MELATONIN 5 MG TABLET PO (23:27)
[2021-06-07 23:53] LABS: Troponin I < 0.012 ng/mL (0.000-0.034)
[2021-06-08] VITALS (14 sets, daily range): BP systolic 107–133; BP diastolic 45–65; PULSE 60–76; RESP 18–20; TEMP 36.2–37; O2SAT 94–99
[2021-06-08] MEDS: LEVOTHYROXINE SODIUM 50 MCG TABLET PO (05:22)
[2021-06-08] MEDS: TORSEMIDE 10 MG TABLET PO (09:20)
[2021-06-08] MEDS: LOSARTAN POTASSIUM 50 MG TABLET PO (09:20)
[2021-06-08] MEDS: ASPIRIN 81 MG ENTERIC TABLET PO (09:20)
[2021-06-08] MEDS: atenoloL 50 MG TABLET PO (09:20)
[2021-06-08] MEDS: APIXABAN 2.5 MG TABLET PO ×2 (09:20→21:27)
[2021-06-08] MEDS: PANTOPRAZOLE 40 MG TABLET PO ×2 (09:21→17:23)
[2021-06-08] MEDS: CHOLECALCIFEROL 1,000 UNITS TABLET 5000 UNITS PO (09:21)
[2021-06-08] MEDS: CEPHALEXIN 500 MG CAPSULE PO ×2 (09:31→21:27)
[2021-06-08] MEDS: HYDROmorphone HCL INJ (*CRX) 1 MG/ML SYR 0.5 MG IV PUSH (10:33)
--- NOTE | 2021-06-08 11:07 | PM.CNCAR ---
Assessment and Plan Assessment and plan (1) Atypical chest pain: Code(s): R07.89 - Other chest pain Status: Acute Assessment and Plan: Atypical, reproducible chest pain worse with deep breathing, movement and position consistent with musculoskeletal etiology. Symptoms very likely unrelated to recent pacemaker generator change although possible muscle strain. Ruled out for myocardial infarction with negative enzymes. Symptoms do not appear to be consistent with pericarditis, however, treatment similar with anti-inflammatory. Discussed caution with regards to bleeding risk on systemic anticoagulation with Eliquis. Monitor bright red blood per rectum and or black tarry stools. Take NSAIDs with a full glass of water and with food. Avoid lying down within 1-2 hours after taking ibuprofen. 600 mg ibuprofen 3 times daily for 3 days, twice daily for 3 days, daily for 3 days then discontinuation. May supplement with Tylenol for additional pain control. Disposition per hospitalist service after adequate pain control. Further recommendations to follow as clinically appropriate based on patient's clinical response to therapy. (2) Pericardial effusion: Code(s): I31.3 - Pericardial effusion (noninflammatory) Status: Acute Assessment and Plan: Incidental small pericardial effusion on CT chest unrelated to pacemaker generator change. Will obtain 2D echocardiogram as an outpatient. (3) Lung mass: Code(s): R91.8 - Other nonspecific abnormal finding of lung field Status: Acute Assessment and Plan: Etiology and significance unclear at this time. Workup per primary service. PET-CT as outpatient. (4) Sick sinus syndrome: Code(s): I49.5 - Sick sinus syndrome Status: Acute Assessment and Plan: Stable. Status post pacemaker. (5) Pacemaker: Code(s): Z95.0 - Presence of cardiac pacemaker Status: Inactive Assessment and Plan: Status post unremarkable generator change 06/06/[address] Blake. Continue post procedure precautions as previously directed. (6) Chronic anticoagulation: Code(s): Z79.01 - bed bug exterminator (current) use of anticoagulants Status: Acute Assessment and Plan: Managed by PCP. Defer to primary service. History of Present Illness History of Present Illness Consult date/time: Date of service: 06/08/21 11:07 Cardiology consultation at the request of Dr. Johnson for opinion regarding chest pain. Requesting physician: Rajat Lindo MD Consult reason: chest pain Reason For Visit: Chest pain Narrative: Patient is a 80-year-old female with a past medical history significant for minimal luminal irregularities in the RCA on left heart catheterization 2011, hypertension, chronic osteoarthritis 1 went generator change secondary to pacemaker at [facility] on 06/06/2021 without complication. Patient states the following day she began to experience heaviness in her chest which progressed throughout the day discovered on routine follow-up call from the chest pain center. Patient was advised to present to the emergency department based on her description that there was a ?elephant sitting on my chest?. Patient delay but then presented to the ER for evaluation as advised. She has ruled out for myocardial infarction with negative serial enzymes, no ischemic changes on EKG. She has electronic atrially paced on telemetry. She continues to complain of chest pain which he states his exacerbated by movement, coughing, deep breathing, laughing, or sitting up. She does note on occasion chest pain has gone up into her neck. She has not experienced symptoms similar to this in the past although does admit she has had pleurisy was located more along the sides of her ribs. CT angiogram of the chest emergency department revealed no pulmonary embolism mild pericardial effusion pacemaker expected location, chronic prominent dilatation of the common bile duct and l
[2021-06-08] MEDS: IBUPROFEN 600 MG TABLET PO ×2 (11:26→15:54)
[2021-06-08] MEDS: ACETAMINOPHEN 500 MG TABLET 1000 MG PO (15:50)
--- NOTE | 2021-06-08 16:53 | PM.IMPN ---
Progress Note: A&P Assessment and Plan (1) Atypical chest pain: Code(s): R07.89 - Other chest pain Status: Acute (2) Pericardial effusion: Code(s): I31.3 - Pericardial effusion (noninflammatory) Status: Acute (3) Lung mass: Code(s): R91.8 - Other nonspecific abnormal finding of lung field Status: Acute (4) Sick sinus syndrome: Code(s): I49.5 - Sick sinus syndrome Status: Acute (5) Pacemaker generator end of life: Code(s): Z45.010 - Encounter for checking and testing of cardiac pacemaker pulse generator [battery] Status: Acute (6) Chronic back pain: Code(s): M54.9 - Dorsalgia, unspecified; G89.29 - Other chronic pain Status: Acute (7) Spinal stenosis: Code(s): M48.00 - Spinal stenosis, site unspecified Status: Acute (8) Narcotic dependency, continuous: Code(s): F11.20 - Opioid dependence, uncomplicated Status: Acute (9) Chronic anticoagulation: Code(s): Z79.01 - detention (current) use of anticoagulants Status: Acute Additional Plan Patient admitted to the IMU. Cardiology was consulted. troponins negative x3. EKG showing paced rhythm. Chest pain unlikely to be related to the recent generator replacement. Symptoms more typical of pleurisy or costochondritis. Consider also pericarditis although EKG not consistent with this. Symptoms are better with ibuprofen. Quick tapering course has been ordered. She does take aspirin and Eliquis. She is on gastric prophylaxis with PPI. Plan for PET scan after discharge. Continue majority of the home medications. Home tomorrow. Subjective Date/time seen: 06/08/21 16:53 Interval history: 80yo female with sick sinus syndrome s/p PM who had a recent generator change here for chest pain. Pain is pleuritic and radiates to the neck. Has GERD and takes omeprazole daily. Has known hiatal hernia. Shaylee is worse with cough and with bending over. Feels SOB. Seen later in the day after starting the Ibuprofen and she feels better but is nervous about discharge and does not have a ride Exam Narrative: AF 98.6 133/62 64 18 98% ra Gen - NARD Chest - CTA bilaterally, nml RR. Right upper chest incision was clean and dry without erythema or drainage CV - RRR S1/S2 Abd - Soft, NT/ND, Positive BS Ext - trace pedal edema Psych - Nml mood and affect Skin - Warm and dry Objective Data Vital Signs Vital Signs: Vital Signs - 24 hr 06/07/21 17:06 06/07/21 17:12 06/07/21 17:16 Temperature Pulse Rate 66 61 60 Respiratory Rate 15 12 Blood Pressure Pulse Oximetry 97 100 06/07/21 17:20 06/07/21 19:26 06/07/21 22:00 Temperature Pulse Rate 61 61 61 Respiratory Rate 15 14 Blood Pressure 122/59 L 116/61 Pulse Oximetry 100 98 06/07/21 23:53 06/08/21 00:00 06/08/21 02:00 Temperature 96.7 F L Pulse Rate 95 61 60 Respiratory Rate 20 Blood Pressure 132/48 L Pulse Oximetry 100 06/08/21 04:00 06/08/21 06:00 06/08/21 08:00 Temperature 97.1 F L 97.6 F Pulse Rate 70 60 68 Respiratory Rate 20 18 Blood Pressure 110/45 L 124/65 Pulse Oximetry 94 97 06/08/21 12:12 Temperature 98.6 F Pulse Rate 64 Respiratory Rate 18 Blood Pressure 133/62 Pulse Oximetry 98 Intake/Output Intake/Output: Intake & Output 06/05/21 06/06/21 06/07/21 06/08/21 23:59 23:59 23:59 23:59 Intake Total 1100 480 Output Total 1025 Balance 1100 -545 Meds/Results Medications: Active Medications Generic Name Dose Route Start Last Admin Trade Name Rohithq PRN Reason Stop Dose Admin Acetaminophen 1,000 mg 06/08/21 14:22 06/08/21 15:50 Acetaminophen 500 Mg Tablet PO 1,000 mg Q8H PRN Administration Mild Pain (1-3) or Fever Hydrocodone Bitart/Acetaminophen 1 tab 06/08/21 21:00 Hydrocodone/Acetaminophen (*Crx) 10-325 Mg Tablet PO HS SUZAN Apixaban 2.5 mg 06/08/21 09:00 06/08/21 09:20 Apixaban 2.5 Mg Tablet PO 2.5 mg Q
[2021-06-08] MEDS: HYDROcodone/acetaminophen (*CRX) 10-325 MG TABLET 1 TAB PO (21:27)
[2021-06-08] MEDS: CARBIDOPA/LEVODOPA 25/100 MG TABLET 1 TABLET PO (21:27)
[2021-06-08] MEDS: MELATONIN 5 MG TABLET PO (21:28)
[2021-06-09] MEDS: IBUPROFEN 600 MG TABLET PO ×2 (01:06→08:43)
[2021-06-09] MEDS: rOPINIRole HCL 1 MG TABLET PO (03:44)
[2021-06-09 05:12] VITALS: BP 125/82; PULSE 73; RESP 16; TEMP 36.4; O2SAT 94
[2021-06-09] MEDS: LEVOTHYROXINE SODIUM 50 MCG TABLET PO (06:02)
[2021-06-09] MEDS: PANTOPRAZOLE 40 MG TABLET PO (08:42)
[2021-06-09] MEDS: TORSEMIDE 10 MG TABLET PO (08:42)
[2021-06-09] MEDS: CHOLECALCIFEROL 1,000 UNITS TABLET 5000 UNITS PO (08:42)
[2021-06-09] MEDS: LOSARTAN POTASSIUM 50 MG TABLET PO (08:42)
[2021-06-09 08:43] VITALS: PULSE 70
[2021-06-09] MEDS: APIXABAN 2.5 MG TABLET PO (08:43)
[2021-06-09] MEDS: atenoloL 50 MG TABLET PO (08:43)
[2021-06-09] MEDS: ASPIRIN 81 MG ENTERIC TABLET PO (08:43)
[2021-06-09] MEDS: CEPHALEXIN 500 MG CAPSULE PO (08:43)
--- NOTE | 2021-06-09 11:15 | PM.DS ---
DS: Admitting Diagnosis Discharge Date 06/09/21 Admitting Diagnosis Chest pain DS: Discharge Diagnosis Discharge Diagnosis (1) Atypical chest pain: Code(s): R07.89 - Other chest pain Status: Acute (2) Pericardial effusion: Code(s): I31.3 - Pericardial effusion (noninflammatory) Status: Acute (3) Lung mass: Code(s): R91.8 - Other nonspecific abnormal finding of lung field Status: Acute (4) Sick sinus syndrome: Code(s): I49.5 - Sick sinus syndrome Status: Acute (5) Pacemaker generator end of life: Code(s): Z45.010 - Encounter for checking and testing of cardiac pacemaker pulse generator [battery] Status: Acute (6) Chronic back pain: Code(s): M54.9 - Dorsalgia, unspecified; G89.29 - Other chronic pain Status: Acute (7) Spinal stenosis: Code(s): M48.00 - Spinal stenosis, site unspecified Status: Acute (8) Narcotic dependency, continuous: Code(s): F11.20 - Opioid dependence, uncomplicated Status: Acute (9) Chronic anticoagulation: Code(s): Z79.01 - skilled nursing (current) use of anticoagulants Status: Acute DS: Summary Hospital Course Reason for hospitalization: 80yo female with sick sinus syndrome s/p PM who had a recent generator change here for chest pain. Please see H&P for details. Hospital Course: Patient admitted to the IMU. Cardiology was consulted. Troponins negative x3. EKG showing paced rhythm. CXr was clear. CTA Chest was negative for PE but did show mild pericardial effusion, mild nonspecific adenopathy, 1cm irregular left lower lobe soft tissue mass but no other significant findings. Chest pain unlikely to be related to the recent generator replacement. Symptoms more typical of pleurisy or costochondritis. Consider also pericarditis although also felt less likely. Treated with Ibuprofen and symptoms improved. Quick tapering course of NSAIDs has been ordered. She does take aspirin and Eliquis. She is on gastric prophylaxis with PPI. Plan for PET scan after discharge. She could not obtain transportation but able to be discharged today in stable condition. Status at Discharge Cognitive/behavioral status at discharge: Stable Time Spent with Patient Time attestation: Total time spent providing and/or coordinating discharge services: 32 minutes Time spent: Greater than 30 minutes Exam Narrative: AF 97.5 125/82 70 16 94% ra Gen - NARD Chest - CTA bilaterally, nml RR. Right upper chest dressing was clean and dry CV - RRR S1/S2 Abd - Soft, NT/ND, Positive BS Ext - no pedal edema Psych - Nml mood and affect Skin - Warm and dry Discharge Plan Discharge Attending physician on discharge: Ko Johnson Consulting providers: Poornima Orta Discharging Clinician: Ko Johnson Anticipated Discharge Date/Time: 06/09/21 11:23 Patient Disposition: Home, Self-Care Activity: other - see discharge instructions Diet: heart healthy Discharge Instructions: Continue activity instructions per your aircraft accessories mechanic. Please avoid large gathering, wear face coverings in public and practice social distance. Please complete your antibiotic course even if you are starting to feel well. Take precautions to avoid falls. Rise slowly from a lying or sitting position. Pause before standing or walking. Take Ibuprofen: 600 mg 3 times daily through 06/10/21 THEN twice daily for 3 days THEN daily for 3 days THEN stop Contact your doctor or call 911 and come to the Emergency Room if you have worsening cheat pain, shortness of breath or other worrisome symptoms. Follow-up with your aircraft accessories mechanic at next scheduled appointment time. Please call for appointment. Follow-up with your primary care provider in 2-3 weeks. Patient Instructions: Antibiotic Form, Apixaban (By mouth) Stand Alone Forms: General Discharge Information Follow-up/Referrals: Najma Porter MD [Primary Care Pro
--- NOTE | 2021-06-09 13:27 | PM.PNCARD ---
Progress Note: A&P Assessment and Plan (1) Atypical chest pain: Code(s): R07.89 - Other chest pain Status: Acute Assessment and Plan: Atypical, reproducible chest pain worse with deep breathing, movement and position consistent with musculoskeletal etiology likely costochondritis. Chest pain currently resolved with anti-inflammatory therapy ibuprofen 600 mg q.8 hours.. Symptoms very likely unrelated to recent pacemaker generator change although possible muscle strain. Ruled out for myocardial infarction with negative enzymes. Symptoms do not appear to be consistent with pericarditis, however, treatment similar with anti-inflammatory. Discussed caution with regards to bleeding risk on systemic anticoagulation with Eliquis. Monitor bright red blood per rectum and or black tarry stools. Take NSAIDs with a full glass of water and with food. Avoid lying down within 1-2 hours after taking ibuprofen. Continue with short taper regimen 600 mg ibuprofen 3 times daily for 3 days, twice daily for 3 days, daily for 3 days then discontinuation. Disposition per hospitalist service the patient stable for discharge from cardiovascular perspective. Follow-up with me in the office in 4 weeks. Notify the office with any additional questions or concerns. She will follow-up in the office as scheduled for 1 week wound check post generator change. Avoid strenuous activity for the next 2-3 weeks. (2) Pericardial effusion: Code(s): I31.3 - Pericardial effusion (noninflammatory) Status: Acute Assessment and Plan: Incidental small pericardial effusion on CT chest unrelated to pacemaker generator change. Will obtain 2D echocardiogram as an outpatient as clinically relevant. Discussed with patient. (3) Lung mass: Code(s): R91.8 - Other nonspecific abnormal finding of lung field Status: Acute Assessment and Plan: Etiology and significance unclear at this time. Workup per primary service. PET-CT as outpatient encouraged as previously recommended by primary service. (4) Sick sinus syndrome: Code(s): I49.5 - Sick sinus syndrome Status: Acute Assessment and Plan: Stable. Status post pacemaker. (5) Pacemaker: Code(s): Z95.0 - Presence of cardiac pacemaker Status: Inactive Assessment and Plan: Status post unremarkable generator change 06/06/[address] Blake. Continue post procedure precautions as previously directed. (6) Chronic anticoagulation: Code(s): Z79.01 - [facility] (current) use of anticoagulants Status: Acute Assessment and Plan: Managed by PCP. Defer to primary service. Subjective Date/time seen: Date of service: 06/09/21 11:27 Follow-up for chest pain Patient states her chest pain has completely resolved with ibuprofen. She feels quite well. She denies shortness of breath, palpitations, nausea vomiting. States she feels well and wants to go home. No new issues overnight. Review of Systems Review of Systems: All systems reviewed & are unremarkable except as noted in HPI and below Constitutional: Constitutional: Reports as per HPI, Reports no additional constitutional complaints and Denies difficulty sleeping Eyes: Eyes: Reports as per HPI and Reports no additional eye complaints ENT: Reports system reviewed and no additional complaints, except as documented, Reports as per HPI and Reports neck pain Cardiovascular: Cardiovascular: Reports as per HPI, Reports no additional cardiovascular complaints, Denies chest pain, Denies diaphoresis, Denies pedal edema, Denies leg edema, Denies lightheadedness, Denies palpitations, Denies dyspnea and Denies dyspnea on exertion Respiratory: Respiratory: Reports as per HPI, Reports no additional respiratory complaints, Denies cough, Denies hemoptysis, Denies dyspnea and Denies dyspnea on exertion Gastrointestinal: Gastrointestinal: Reports as per HPI, Reports no additional gastrointes
== END 2021-06-09 12:10 | disposition home or self-care (01) ==
LOC: ANHED 17:03 → ANHIMU 06-08 05:56 → ANH2MED 06-09 07:24 → ANHIMU 06-10 14:55
PROVIDERS: Admitting Provider Internal Medicine; Emergency Provider Emergency Medicine; PCP Family Medicine; Visit Provider Internal Medicine
DX: R07.89 Other chest pain (principal); I31.3 Pericardial effusion (noninflammatory); R91.8 Other nonspecific abnormal finding of lung field; I49.5 Sick sinus syndrome; F11.20 Opioid dependence, uncomplicated; G89.29 Other chronic pain; I25.2 Old myocardial infarction; I10 Essential (primary) hypertension; M54.2 Cervicalgia; M48.00 Spinal stenosis, site unspecified; Z95.0 Presence of cardiac pacemaker; Z79.01 Long term (current) use of anticoagulants; Z86.718 Personal history of other venous thrombosis and embolism; Z23 Encounter for immunization
CPT/HCPCS: 36415; 71045; 71275; 80053; 83880; 84484; 85025; 85610; 85730; 90471; 90653; 93005; 96361; 96374; 96375; 96376; 99285; A9270; G0008; G0378; J0131; J1170; J2270; J2405; J7040; Q9967

== ENCOUNTER 2021-07-14 08:13 | Outpatient (CLI) | payer OTHER, SELFPAY ==
--- NOTE | ~2021-07-14 | PE_ITS ---
EXAMINATION: PET skull to mid thigh DATE: 07/14/2021 13:08 INDICATION: Irregular 1 cm left lower lobe pulmonary mass TECHNIQUE: Blood glucose level was 103 mg/dL. 12.363 mCi of 18-fluorodeoxyglucose (18-FDG) was admini stered i.v. Low dose computed tomography (CT) images were acquired from the base of the brain to the proximal thighs for attenuation correction and anatomic localization. Positron emission tomography (P ET) images were acquired in the same distribution beginning 61 minutes after injection. Images includ ing fused PET/CT images were reconstructed in axial, coronal, and sagittal planes. Automated exposure control technique was employed. The dose-length product was 683.57mGy-cm. COMPARISON: Chest CT dated 06/07/[address] abdomen and pelvis dated 04/25/2021 FINDINGS: Head/neck: There is symmetric increased activity in the oral cavity, muscles of mastication, laryngeal muscles a nd ocular muscles without CT correlate, likely physiologic. No pathologically enlarged cervical lymph adenopathy or suspicious foci of increased FDG uptake in the visualized head or neck. Chest: No abnormal increased FDG uptake associated with a 1 cm left lower lobe nodule. Mild linear discoid a telectasis/scarring at the bilateral apices and in the lingula. Calcified left lower lobe nodule cassandra g with calcified left hilar and mediastinal lymph nodes consistent with old granulomatous disease. Ri ght ventricle. Moderate-sized sliding-type hiatal hernia. No pathologically enlarged or FDG avid thor acic lymphadenopathy. Abdomen/pelvis/proximal thighs: Physiologic renal accumulation and excretion of FDG activity in the kidneys, bladder and along portio ns of ureters. Chronic pneumobilia consistent with prior cholecystectomy and sphincterotomy. Normal d egree and heterogenous pattern of increased uptake throughout the liver without radiologic correlate or dominant FDG avid lesion. The pancreas, spleen and bilateral adrenal glands are normal. Postoperat jose changes of prior right hemicolectomy with ileocolic anastomosis in the pelvis. There is an additi onal anastomotic suture line at the distal sigmoid colon. There is a 1.5 cm FDG avid nodule with maxi mal SUV of 5.3 in the subcutaneous at the anterior right pelvis. There is a small linear foreign body potentially suture related to prior ventral hernia repair which can be seen dating back to 04/15/2015 . No other abnormal foci of increased FDG uptake or pathologically enlarged lymphadenopathy in the ab domen, pelvis or proximal thighs. Musculoskeletal: Postoperative changes in the lumbar spine including L3 laminectomy and partial L3 laminectomy, anteri or spinal fusion with interbody bone graft cages at L1-L2 and L2-L3 and L2-S1 posterior spinal fusion with bilateral vertical stephanie and pedicle screw fixation. No suspicious lytic, blastic or FDG avid bon e lesions. Mild synovial uptake at the bilateral shoulders. IMPRESSION: 1. No abnormal increased uptake associated with a 1 cm left lower lobe nodule. While reassuring would recommend additional follow-up low-dose noncontrast chest CT in 6 months. 2. Increased FDG uptake associated with a nonspecific 1.5 similar FDG avid nodule along the anterior pelvic wall. This could represent seeding with metastatic disease along a surgical wound if there has been history of prior intra-abdominal malignancy. Alternatively this could be infectious or inflamma tory, potentially related to the reservoir in adjacent small amount of suture material. Clearly with clinical history and consider ultrasound-guided biopsy. Reviewed, dictated and finalized at location B. [employer]
[2021-07-14 09:17] LABS: Glucose Point of Care 103 mg/dl (65-105)
== END 2021-07-14 08:14 | disposition home or self-care (01) ==
PROVIDERS: PCP Family Medicine; Visit Provider Internal Medicine
DX: R91.1 Solitary pulmonary nodule (principal)
CPT/HCPCS: 78815; A9552

== ENCOUNTER 2022-01-03 16:44 | Observation (INO) | payer MEDICARE, OTHER, SELFPAY ==
[2022-01-03] VITALS (13 sets, daily range): BP systolic 124–155; BP diastolic 48–82; PULSE 62–101; RESP 14–18; TEMP 36.6–37.1; O2SAT 95–100
--- NOTE | ~2022-01-03 | US_ITS ---
EXAMINATION:US venous doppler LE BI INDICATION:Lower extremity swelling TECHNIQUE: Multiple grayscale, color flow and Doppler images of the right and left lower extremity de ep venous systems were obtained and reviewed. COMPARISON:01/11/2021 FINDINGS: The common femoral, superficial femoral and popliteal veins demonstrate normal respiratory variation, augmentation and compressibility. Color flow is also seen within the posterior tibial, pe roneal, greater saphenous and profunda veins. IMPRESSION: 1: No lower extremity deep venous thrombosis. Reviewed, dictated and finalized at location A.
--- NOTE | ~2022-01-03 | XR_ITS ---
EXAMINATION: XR chest 2V DATE: 01/03/2022 17:27 INDICATION: Shortness of breath TECHNIQUE: PA and lateral views of the chest are obtained. COMPARISON: 06/07/2021 FINDINGS: The lungs are free of acute opacities. There is no pleural effusion or pneumothorax. The he art size is normal. There is a moderate-sized sliding hiatal hernia. There is moderate thoracic spond ylosis. There are partially imaged surgical changes of the lumbar spine. IMPRESSION: 1. No acute cardiopulmonary abnormality. 2. Moderate-sized sliding hiatal hernia. Reviewed, dictated and finalized at location F.
--- NOTE | 2022-01-03 16:49 | ECG_ITS ---
Measurements Intervals [place] Rate: 68 P: 90 SC: 248 QRS: -17 QRSD: 90 T: 46 QT: 391 QTc: 418 Interpretive Statements SINUS RHYTHM WITH FIRST DEGREE AV BLOCK INCOMPLETE RIGHT BUNDLE BRANCH BLOCK BORDERLINE R WAVE PROGRESSION, ANTERIOR LEADS BORDERLINE ST ABNORMALITY- HIGH LATERAL LEADS BASELINE ARTIFACT- I, II, AVR, AVL, AVF, V5 ABNORMAL ECG Electronically Signed On 01-03-2022 18:14:54 CDT by Bayron Clemente D.O.
[2022-01-03 16:59] LABS: Basophils Absolute Auto 0.1 K/mm3 (0.0-0.1); Basophils Percent Auto 1.2 % (0.2-1.2); Eosinophils Absolute Auto 0.2 K/mm3 (0-0.3); Eosinophils Percent Auto 1.9 % (0-4.4); Hematocrit 24.4 % (37.0-47.0); Immature Granulocyte Absolute 0.04 K/mm3 (0.00-0.031); Immature Granulocyte Percent A 0.5 % (0-0.5); Lymphocytes Absolute Auto 1.77 K/mm3 (0.9-3.2); Mean Corpuscular HGB Conc 28.3 g/dl (32-36); Mean Corpuscular Hemoglobin 18.6 pg (26-34); Mean Corpuscular Volume 65.9 fl (80-100); Mean Platelet Volume 8.5 fl (7.4-10.4); Monocytes Absolute Auto 0.7 K/mm3 (0.1-0.6); Monocytes Percent Auto 8.3 % (2.6-8.5); Neutrophils Absolute Auto 5.6 K/mm3 (1.3-6.7); Neutrophils Percent Auto 67.1 % (45.5-73.1); Platelet Count Result 361 k/mm3 (150-375); Red Cell Distribution Width 18.4 % (11.5-14.5); White Blood Count 8.4 K/mm3 (4.5-10.0)
[2022-01-03 17:09] LABS: Alanine Aminotransferase 8 U/L (6-35); Albumin Level 4.1 g/dL (3.5-5.1); Alkaline Phosphatase 50 U/L (38-126); Anion Gap 9 mmol/L (8-16); Aspartate Amino Transferase 29 U/L (14-36); Bilirubin,Total 0.3 mg/dL (0.2-1.3); Blood Urea Nitrogen 22 mg/dL (7-17); Calcium 8.9 mg/dL (8.4-10.2); Carbon Dioxide 25 mmol/L (22-30); Chloride 104 mmol/L (98-107); Estimated CRCL calculation 46 ml/min; Estimated Glomerular Filt Rate 60; Glucose 100 mg/dL (65-110); INR 1.3; Potassium 4.2 mmol/L (3.4-5.0); Prothrombin Time 15.4 Seconds (11.1-14.7); Sodium 138 mmol/L (137-145)
[2022-01-03 17:10] LABS: Partial Thromboplastin Time 33.5 SECONDS (22.3-36.8)
[2022-01-03 17:24] LABS: Hemoglobin 6.9 g/dL (12.0-15.0)
[2022-01-03 17:25] LABS: Platelet Estimate Adequate (Adequate)
[2022-01-03 17:26] LABS: Anisocytosis 2+ (NORMAL); Hypochromasia 1+ (NORMAL)
--- NOTE | 2022-01-03 18:07 | ED.SOB ---
HPI - SOB/Dyspnea General Chief Complaint: Shortness of Breath/Dyspnea Stated Complaint: feel like I'm dying Time Seen by Provider: 01/03/22 17:26 Source: patient Mode of arrival: ambulatory Limitations: no limitations History of Present Illness HPI Narrative: This is an 81-year-old female that presents to the emergency department for shortness of breath. Ongoing over the last couple of days. Reports she has history of anemia for which she sees a merchandise flow manager in [place]. She is to receive iron transfusions almost twice a year. She has not done this in the last couple of years due to COVID. Denies fevers, chest pain, cough, or lower extremity edema. Related Data Home Medications Medication Instructions Recorded Confirmed aspirin 81 mg tablet,delayed 81 mg PO DAILY 01/11/21 01/03/22 release (Adult Aspirin Regimen) atenolol 50 mg tablet 50 mg PO DAILY 01/11/21 01/03/22 carbidopa 25 mg-levodopa 100 mg 1 tablet PO QHS 01/11/21 01/03/22 tablet levothyroxine 50 mcg capsule 50 mcg PO DAILY 01/11/21 01/03/22 losartan 50 mg tablet 50 mg PO DAILY 01/11/21 01/03/22 omeprazole 40 mg capsule,delayed 40 mg PO DAILY 01/11/21 01/03/22 release apixaban 2.5 mg tablet (Eliquis) 2.5 mg PO BID 05/19/21 01/03/22 cholecalciferol (vitamin D3) 125 5,000 unit PO DAILY 06/03/21 01/03/22 mcg (5,000 unit) tablet torsemide 10 mg tablet 10 mg PO PRN 06/03/21 06/07/21 morphine 30 mg tablet,extended 1 tablet PO BID 01/03/22 01/03/22 release Allergies Allergy/AdvReac Type Severity Reaction Status Date / Time meperidine Allergy Mild Rash Verified 01/03/22 16:49 celecoxib Allergy Unknown Unknown Verified 01/03/22 16:49 Sulfa (Sulfonamide Allergy Unknown Rash Verified 01/03/22 16:49 Antibiotics) codeine AdvReac Unknown Gastrointestinal Verified 01/03/22 16:49 Upset Review of Systems Review of Systems: CONSTITUTIONAL: Denies fever, CARDIOVASCULAR: Denies chest pain RESPIRATORY: Reports dyspnea. Denies cough All systems reviewed & are unremarkable except as noted in HPI and below PMFSH Past Medical History Medical History Anemia Arthritis History of DVT of lower extremity Pacemaker Surgical History Surgical History H/O hernia repair H/O: hysterectomy History of cholecystectomy History of colon resection sigmoidectomy 2007 diverticulitis laparoscopic right colectomy 2014 cecal polyp History of incisional hernia repair laparoscopic repair with physio mesh 2014 History of total knee replacement Right 15 years ago, left [address] Pelayo in [place] Family History Family History Mother Family history of Alzheimer's disease Father Family history of throat cancer Other Diabetes mellitus Social History Social History Smoking status: Never smoker Alcohol intake: never Substance use: current Substance use type: painkillers and prescription drug Gender identity (if verbalized by the patient): Female Spiritual care concerns: No Exam Narrative: GENERAL: Well-appearing, well-nourished, and in no acute distress. HEAD: Normocephalic, atraumatic. EYES: EOMI. CHEST: Clear to auscultation. No respiratory distress. No wheezes rales or rhonchi HEART: Regular rate and rhythm. No murmur heard. Normal peripheral pulses. EXTREMITIES: Normal range of motion. No edema. SKIN: Warm, dry, no rash. NEURO: No focal deficits. Alert and oriented x3. PSYCH: Normal mood and affect RECTAL: Hemoccult negative Course Vital Signs Vital signs: Vital Signs Temperature 98.2 F 01/03/22 16:46 Pulse Rate 84 01/03/22 16:46 Respiratory Rate 18 01/03/22 16:46 Blood Pressure 155/82 H 01/03/22 16:46 Pulse Oximetry 100 01/03/22 16:46 Oxygen Delivery Room Air 01/03/22 16:46
[2022-01-03] MEDS: SODIUM CHLORIDE 0.9% IV 250 ML 30 ML IV CONT (19:44)
--- NOTE | 2022-01-03 19:52 | PC.NURSE ---
Blood tubing used with blood administration.
--- NOTE | 2022-01-03 20:31 | ADMGEN ---
This patient, Kenyetta Chappell, was admitted to Medical Room 341-01. Patient/family oriented to hospital policies and general routines including ID bracelet, bed and alarms, visiting hours, pain management, procedures, bathroom and other care routines, personal items, smoking policy, room service/diet, and visiting hours. Information on how to activate the Rapid Response Team has been discussed. Patient/Family are encouraged to report perceived risks to care and to ask questions if they do not understand what they are told or what they should do.
[2022-01-03] MEDS: CARBIDOPA/LEVODOPA 25/100 MG TABLET 2 TABLET PO (22:02)
[2022-01-03] MEDS: atenoloL 50 MG TABLET PO (22:03)
[2022-01-03] MEDS: hydrOXYzine HCL 25 MG TABLET 100 MG PO (23:48)
[2022-01-04] VITALS (12 sets, daily range): BP systolic 115–136; BP diastolic 51–62; PULSE 60–86; RESP 16–18; TEMP 36.8–37.1; O2SAT 97–100
--- NOTE | 2022-01-04 | ECHO_ITS ---
Patient Info Name: Kenyetta Chappell Age: 81 years : 1940 Gender: Female Ht: 65 in Wt: 180 lbs BSA: 1.96 m2 HR: 78 bpm BP: 135 / 54 mmHg Heart Rhythm: Sinus Rhythm Technical Quality: Good Exam Date: 01/04/2022 11:56 AM Exam Location: [facility] Pulmonary Exam Room: [facility] Patient Status: Inpatient Admit Date: 01/03/2022 Staff Ordering Physician: Miguelina Lin DO Restoration Officer: Jacquelin Beltran RCS Attending Provider: Raghav Estevez MD Referring Physician: Riley LOPEZ; Exam Type: CA echo doppler color flow Study Info Indications - ELPIDIO LOCKE Complete two-dimensional, color flow and Doppler transthoracic echocardiogram is performed. Summary 1. Complete two-dimensional, color flow and Doppler transthoracic echocardiogram is performed. 2. Left ventricular chamber dimension is normal. 3. Left ventricular systolic function is normal, estimated at 60-65%. 4. There is no increased left ventricular wall thickness. 5. The left ventricular diastolic function is grade II diastolic dysfunction. 6. Left atrial chamber dimension is moderately enlarged. 7. Right atrial chamber dimension is moderately enlarged. 8. There is trace aortic valve regurgitation. 9. There is no aortic valve stenosis. 10. There is mild mitral valve regurgitation. 11. There is mild tricuspid valve regurgitation. 12. Mild pulmonary hypertension, estimated pulmonary arterial systolic pressure is 41 mmHg. Left Ventricle Left ventricular chamber dimension is normal. Left ventricular systolic function is normal, estimated at 60-65%. There is no increased left ventricular wall thickness. The left ventricular diastolic function is grade II diastolic dysfunction. Right Ventricle Right ventricular chamber dimension is normal. Right ventricular systolic function is normal. Linear artifact in right ventricle suggestive of catheter(s), pacemaker lead(s), or ICD lead(s). Left Atria Left atrial chamber dimension is moderately enlarged. Right Atria Right atrial chamber dimension is moderately enlarged. Linear artifact in the right atrium suggestive of catheter(s), pacemaker lead(s), or ICD lead(s). Atrial Septum Thin and hypermobile interatrial septum. Aortic Valve The aortic valve is trileaflet. There is no aortic valve stenosis. There is trace aortic valve regurgitation. Pulmonic Valve The pulmonic valve is not well visualized. There is trace pulmonic regurgitation. Mitral Valve The mitral valve has normal leaflets. There is mild mitral valve regurgitation. The mitral valve annulus is mildly calcified. Tricuspid Valve The tricuspid valve leaflets are normal. There is mild tricuspid valve regurgitation. Mild pulmonary hypertension, estimated pulmonary arterial systolic pressure is 41 mmHg. Pericardium/Pleural The pericardium appears normal. There is no pericardial effusion. Inferior Vena Cava Dilated inferior vena cava with >50% collapse upon inspiration consistent with elevated right atrial pressure, 10 mmHg. Aorta The aortic root size at the sinus of Valsalva is normal. Left Ventricular Outflow Tract Name Value Normal LVOT 2D LVOT Diameter 2.0 cm LVOT Doppl
--- NOTE | 2022-01-04 03:44 | PM.IMHP ---
H&P: HPI History of Present Illness Date/Time: 01/04/22 03:44 Chief Complaint: Shortness of breath Narrative: 81-year-old female with past medical history of sick sinus syndrome status post dual chamber pacemaker hypertension, Parkinson's, hypothyroidism, GERD and iron deficiency anemia who presented to the ER due to feeling as if something was not right and not being able to catch her breath. She denies any chest pain or palpitations. She has noticed that over the last several months she has had to stop multiple times in take a break while mowing her lawn. She never had to do this last year. She denies any palpitations. She has not had any cough or congestion. She denies any fevers or chills. She has noticed some significant orthopnea over the last month or so and has noticed increasing dyspnea on exertion over the last couple of months. She reports that her symptoms culminated in the last 3 days and she has been restless and unable to sit still due to her symptoms. She became more acutely short of breath since Sunday when and was afraid that she would if she did not come to the ER. In the ER labs were obtained which demonstrated significant anemia with hemoglobin 6.9. When she was told her hemoglobin was so low the patient reported that she has chronic iron deficiency anemia and usually gets iron infusions every 6 months but has not received them since the beginning of the pandemic. lost track of how long it had been since she has followed up with Dr. Brown (hematology) in [place]. She reports that she has had multiple colonoscopies in the past without known source of bleeding. She is scheduled for an outpatient EGD with Dr. Fragoso at [facility] February 07 due to increasing GERD symptoms. She had a rectal exam performed by the ER provider which was negative for occult blood. She does admit to a low iron diet. She states that since she had her teeth extracted and has some dentures she has difficulty chewing meat. She states that she does not tolerate oral iron supplementation as a causes severe nausea vomiting. This is why she is dependent on iron infusions. She does have history of DVTs multiple times in the distant past but had not been on anticoagulation for the last year. She had noticed over the last month or so that she developed increased swelling in her legs. She went back to her primary care physician's on Sunday to discuss the swelling in her legs and was placed back on Eliquis per the patient's request. Review of Systems Review of Systems: 12 systems were reviewed with pertinent positives and negatives per HPI. Except as documented in the HPI, all other systems were reviewed and are negative. [facility] Past Medical History Medical History Anemia Arthritis Barretts esophagus (~2014) Chronic back pain Coronary artery disease Nonobstructive. Follows with Dr. Maxx Joya DVT (deep venous thrombosis) (~2008) Essential hypertension GERD (gastroesophageal reflux disease) History of DVT of lower extremity Narcotic dependency, continuous Pericarditis (06/2021) Sick sinus syndrome Spinal stenosis Surgical History Surgical History (Updated 01/04/22 @ 05:46 by Miguelina Lin DO) Fusion of lumbar spine (~1995) History of appendectomy History of cardiac catheterization (~2009) With minimal luminal abnormalities History of cholecystectomy History of colon resection sigmoidectomy 2007 diverticulitis laparoscopic right colectomy 2014 cecal polyp History of hernia repair Open repair of left flank incisional hernia and laparoscopic repair of ventral incisional hernia both with mesh reinforcement in 2013. History of incisional hernia repair laparoscopic repair with physio mesh 2013 History of tonsillectomy and adenoidectomy History of total hysterectomy with bilateral salpingo-oophorectomy (BSO) (~1973) History of total knee replacement Right in
[2022-01-04] MEDS: LEVOTHYROXINE SODIUM 50 MCG TABLET PO (05:51)
[2022-01-04 05:52] LABS: Hematocrit 29.4 % (37.0-47.0); Hemoglobin 8.7 g/dL (12.0-15.0); Mean Corpuscular HGB Conc 29.6 g/dl (32-36); Mean Corpuscular Hemoglobin 21.2 pg (26-34); Mean Corpuscular Volume 71.5 fl (80-100); Mean Platelet Volume 8.9 fl (7.4-10.4); Platelet Count Result 304 k/mm3 (150-375); Red Blood Count 4.11 M/mm3 (4.2-5.4); Red Cell Distribution Width 20.8 % (11.5-14.5); White Blood Count 6.6 K/mm3 (4.5-10.0)
[2022-01-04 06:06] LABS: Immature Reticulocyte Fraction 29.9 % (3.0-15.9); Reticulocyte Hemoglobin Conten 20.2 pg (28.2-35.7); Reticulocyte Percent 0.95 % (0.7-4.3); Reticulocytes Absolute 0.04 B/L (32.2-175.7)
[2022-01-04 06:10] LABS: Anion Gap 5 mmol/L (8-16); Blood Urea Nitrogen 18 mg/dL (7-17); Calcium 8.8 mg/dL (8.4-10.2); Carbon Dioxide 27 mmol/L (22-30); Chloride 107 mmol/L (98-107); Estimated CRCL calculation 52 ml/min; Estimated Glomerular Filt Rate > 60; Glucose 94 mg/dL (65-110); Potassium 3.9 mmol/L (3.4-5.0); Sodium 139 mmol/L (137-145)
[2022-01-04 07:11] LABS: Folic Acid 9.6 ng/mL (2.76->20)
[2022-01-04 08:53] LABS: Iron 24 ug/dL (37-170)
[2022-01-04 09:02] LABS: Percent Iron Saturation 6 % (20-50)
[2022-01-04 09:28] LABS: Ferritin 7.28 ng/mL (11.1-264)
[2022-01-04] MEDS: CHOLECALCIFEROL 1,000 UNITS TABLET 5000 UNITS PO (09:51)
[2022-01-04] MEDS: ASPIRIN 81 MG ENTERIC TABLET PO (09:52)
[2022-01-04] MEDS: LOSARTAN POTASSIUM 50 MG TABLET PO (09:52)
[2022-01-04] MEDS: PANTOPRAZOLE 40 MG TABLET PO ×2 (09:52→20:29)
[2022-01-04] MEDS: MORPHINE SULFATE (*CRX) 30 MG TABCR PO ×2 (09:56→20:29)
[2022-01-04] MEDS: CARBIDOPA/LEVODOPA 25/100 MG TABLET 2 TABLET PO ×2 (11:48→20:29)
--- NOTE | 2022-01-04 13:22 | PCNSR ---
On 01/04/22, the student, Lucio Painting, provided care and completed [facility] documentation on this patient. I have reviewed the student's documentation and agree with the findings.
[2022-01-04] MEDS: NYSTATIN 100,000 UNITS/ML SUSP 5 ML ORAL.SUSP PO (17:27)
--- NOTE | 2022-01-04 18:34 | PM.IMPN ---
Progress Note: A&P Assessment and Plan (1) Symptomatic anemia: Code(s): D64.9 - Anemia, unspecified Status: Acute (2) Lower extremity edema: Code(s): R60.0 - Localized edema Status: Acute Plan # symptomatic anemia likely recurrence of her iron deficiency anemia. She has this diagnosis in the past. Hemoccult test done in the ER was negative. Will give iron infusion. She used to be getting iron infusion regularly as an outpatient but due to COVID she has not done that recently. Iron studies revealed iron deficiency and her labs. Status post 2 unit of packed red blood cell transfusion. H&H with appropriate rise. Will continue to monitor her H&H. If further drops will need to consult GI for further evaluation. Her Eliquis has also been stopped. She already has an appointment outpatient scheduled to see a Gastroenterology for repeat EGD on February 07. # lower extremity edema bilaterally likely due to high-output failure from symptomatic anemia. Venous duplex was done which came back negative for DVT. Stay off of Eliquis. Echo ordered which is pending # history of DVT in the past had been off Eliquis for over year. Until recently restarted. # DVT prophylaxis SCDs only pharmacologic contraindicated due to anemia Kimberly coronary artery disease # GERD # sick sinus syndrome status post pacemaker implantation # spinal stenosis # do not resuscitate Subjective Date/time seen: 01/04/22 18:34 Interval history: HPI:81-year-old female with past medical history of sick sinus syndrome status post dual chamber pacemaker? hypertension, Parkinson's, hypothyroidism, GERD and iron deficiency anemia who presented to the ER due to feeling as if something was not right and not being able to catch her breath.? She denies any chest pain or palpitations.? She has noticed that over the last several months she has had to stop multiple times in take a break while mowing her lawn.? She never had to do this last year.? She denies any palpitations.? She has not had any cough or congestion.? She denies any fevers or chills.? She has noticed some significant orthopnea over the last month or so and has noticed increasing dyspnea on exertion over the last couple of months.? She reports that her symptoms culminated in the last 3 days and she has been restless and unable to sit still due to her symptoms.? She became more acutely short of breath since Sunday when and was afraid that she would if she did not come to the ER.? In the ER labs were obtained which demonstrated significant anemia with hemoglobin 6.9.? When she was told her hemoglobin was so low the patient reported that she has chronic iron deficiency anemia and usually gets iron infusions every 6 months but has not received them since the beginning of the pandemic.? lost track of how long it had been since she has followed up with Dr. Brown (hematology) in [place].? She reports that she has had multiple colonoscopies in the past without known source of bleeding.? She is scheduled for an outpatient EGD with Dr. Fragoso at [facility] February 07 due to increasing GERD symptoms.? She had a rectal exam performed by the ER provider which was negative for occult blood.? She does admit to a low iron diet.? She states that since she had her teeth extracted and has some dentures she has difficulty chewing meat.? She states that she does not tolerate oral iron supplementation as a causes severe nausea vomiting.? This is why she is dependent on iron infusions.? She does have history of DVTs multiple times in the distant past but had not been on anticoagulation for the last year.? She had noticed over the last month or so that she developed increased swelling in her legs.? She went back to her primary care physician's on Sunday to discuss the swelling in her legs and was placed back on Eliquis per the patient's request. 01/04/2022 reports he does not feel well. Does not feel lightheaded or dizzy. Denies
[2022-01-04] MEDS: atenoloL 50 MG TABLET PO (20:29)
[2022-01-04] MEDS: hydrOXYzine HCL 25 MG TABLET 100 MG PO (23:37)
[2022-01-05] VITALS: PULSE 60
[2022-01-05 05:27] VITALS: BP 133/52; PULSE 64; RESP 16; TEMP 36.8; O2SAT 95
[2022-01-05 06:02] LABS: Basophils Absolute Auto 0.1 K/mm3 (0.0-0.1); Basophils Percent Auto 1.3 % (0.2-1.2); Eosinophils Absolute Auto 0.4 K/mm3 (0-0.3); Eosinophils Percent Auto 4.6 % (0-4.4); Hematocrit 28.6 % (37.0-47.0); Hemoglobin 8.7 g/dL (12.0-15.0); Immature Granulocyte Absolute 0.03 K/mm3 (0.00-0.031); Immature Granulocyte Percent A 0.4 % (0-0.5); Lymphocytes Absolute Auto 2.18 K/mm3 (0.9-3.2); Mean Corpuscular HGB Conc 30.4 g/dl (32-36); Mean Corpuscular Hemoglobin 21.4 pg (26-34); Mean Corpuscular Volume 70.3 fl (80-100); Mean Platelet Volume 8.7 fl (7.4-10.4); Monocytes Absolute Auto 0.7 K/mm3 (0.1-0.6); Monocytes Percent Auto 8.8 % (2.6-8.5); Neutrophils Absolute Auto 4.2 K/mm3 (1.3-6.7); Neutrophils Percent Auto 55.9 % (45.5-73.1); Platelet Count Result 317 k/mm3 (150-375); Red Blood Count 4.07 M/mm3 (4.2-5.4); Red Cell Distribution Width 21.5 % (11.5-14.5); White Blood Count 7.5 K/mm3 (4.5-10.0)
[2022-01-05] MEDS: LEVOTHYROXINE SODIUM 50 MCG TABLET PO (06:10)
[2022-01-05 06:24] LABS: Alkaline Phosphatase 40 U/L (38-126); Anion Gap 4 mmol/L (8-16); Aspartate Amino Transferase 18 U/L (14-36); Bilirubin,Total 0.4 mg/dL (0.2-1.3); Blood Urea Nitrogen 11 mg/dL (7-17); Calcium 8.6 mg/dL (8.4-10.2); Carbon Dioxide 27 mmol/L (22-30); Chloride 110 mmol/L (98-107); Estimated CRCL calculation 58 ml/min; Estimated Glomerular Filt Rate > 60; Glucose 90 mg/dL (65-110); Magnesium 1.9 mg/dL (1.6-2.3); Potassium 3.6 mmol/L (3.4-5.0); Sodium 141 mmol/L (137-145)
[2022-01-05 07:43] LABS: Alanine Aminotransferase < 4 U/L (6-35)
[2022-01-05] MEDS: LOSARTAN POTASSIUM 50 MG TABLET PO (08:42)
[2022-01-05] MEDS: ASPIRIN 81 MG ENTERIC TABLET PO (08:42)
[2022-01-05] MEDS: PANTOPRAZOLE 40 MG TABLET PO ×2 (08:42→20:16)
[2022-01-05] MEDS: MORPHINE SULFATE (*CRX) 30 MG TABCR PO ×2 (08:42→20:16)
[2022-01-05] MEDS: CHOLECALCIFEROL 1,000 UNITS TABLET 5000 UNITS PO (08:42)
[2022-01-05] MEDS: CARBIDOPA/LEVODOPA 25/100 MG TABLET 2 TABLET PO ×2 (08:43→20:16)
--- NOTE | 2022-01-05 13:21 | PM.IMPN ---
Progress Note: A&P Assessment and Plan (1) Symptomatic anemia: Code(s): D64.9 - Anemia, unspecified Status: Acute (2) Lower extremity edema: Code(s): R60.0 - Localized edema Status: Acute Plan # symptomatic anemia likely recurrence of her iron deficiency anemia. She has this diagnosis in the past. Hemoccult test done in the ER was negative. Will give iron infusion. She used to be getting iron infusion regularly as an outpatient but due to COVID she has not done that recently. Iron studies revealed iron deficiency and her labs. Status post 2 unit of packed red blood cell transfusion. H&H with appropriate rise. Will continue to monitor her H&H. If further drops will need to consult GI for further evaluation. Her Eliquis has also been stopped. She already has an appointment outpatient scheduled to see a Gastroenterology for repeat EGD on February 07. H&H stable today. FOBT has ordered but pending collection. # lower extremity edema bilaterally likely due to high-output failure from symptomatic anemia. Venous duplex was done which came back negative for DVT. Stay off of Eliquis. Echo With normal ejection fraction grade 2 diastolic dysfunction. # history of DVT in the past had been off Eliquis for over year. Until recently restarted. # DVT prophylaxis SCDs only pharmacologic contraindicated due to anemia Kimberly coronary artery disease # GERD # sick sinus syndrome status post pacemaker implantation # spinal stenosis # do not resuscitate # generalized anxiety disorder/ depression discussed options of treatment. Will start her on Zoloft 25 mg daily. Titrate slowly as outpatient basis. counseling provided during the visit today Subjective Date/time seen: 01/05/22 13:21 Interval history: HPI:81-year-old female with past medical history of sick sinus syndrome status post dual chamber pacemaker? hypertension, Parkinson's, hypothyroidism, GERD and iron deficiency anemia who presented to the ER due to feeling as if something was not right and not being able to catch her breath.? She denies any chest pain or palpitations.? She has noticed that over the last several months she has had to stop multiple times in take a break while mowing her lawn.? She never had to do this last year.? She denies any palpitations.? She has not had any cough or congestion.? She denies any fevers or chills.? She has noticed some significant orthopnea over the last month or so and has noticed increasing dyspnea on exertion over the last couple of months.? She reports that her symptoms culminated in the last 3 days and she has been restless and unable to sit still due to her symptoms.? She became more acutely short of breath since Sunday when and was afraid that she would if she did not come to the ER.? In the ER labs were obtained which demonstrated significant anemia with hemoglobin 6.9.? When she was told her hemoglobin was so low the patient reported that she has chronic iron deficiency anemia and usually gets iron infusions every 6 months but has not received them since the beginning of the pandemic.? lost track of how long it had been since she has followed up with Dr. Brown (hematology) in [place].? She reports that she has had multiple colonoscopies in the past without known source of bleeding.? She is scheduled for an outpatient EGD with [facility] Fr[facility] February 07 due to increasing GERD symptoms.? She had a rectal exam performed by the ER provider which was negative for occult blood.? She does admit to a low iron diet.? She states that since she had her teeth extracted and has some dentures she has difficulty chewing meat.? She states that she does not tolerate oral iron supplementation as a causes severe nausea vomiting.? This is why she is dependent on iron infusions.? She does have history of DVTs multiple times in the distant past but had not been on anticoagulation for the last year.? She had noticed over the last month or so
[2022-01-05 14:00] VITALS: BP 129/58; PULSE 78; RESP 20; TEMP 36.4; O2SAT 96
[2022-01-05] MEDS: SERTRALINE HCL 25 MG TABLET PO (15:36)
[2022-01-05 19:26] VITALS: BP 142/58; PULSE 63; RESP 18; TEMP 37.1; O2SAT 96
[2022-01-05 20:16] VITALS: PULSE 74
[2022-01-05] MEDS: atenoloL 50 MG TABLET PO (20:16)
[2022-01-05] MEDS: hydrOXYzine HCL 25 MG TABLET 100 MG PO (22:03)
[2022-01-06 05:33] LABS: Basophils Absolute Auto 0.1 K/mm3 (0.0-0.1); Basophils Percent Auto 1.1 % (0.2-1.2); Eosinophils Absolute Auto 0.5 K/mm3 (0-0.3); Eosinophils Percent Auto 6.5 % (0-4.4); Hematocrit 29.5 % (37.0-47.0); Hemoglobin 8.8 g/dL (12.0-15.0); Immature Granulocyte Absolute 0.02 K/mm3 (0.00-0.031); Immature Granulocyte Percent A 0.2 % (0-0.5); Lymphocytes Percent Auto 30.8 % (18.3-44.2); Mean Corpuscular HGB Conc 29.8 g/dl (32-36); Mean Corpuscular Hemoglobin 21.3 pg (26-34); Mean Corpuscular Volume 71.3 fl (80-100); Mean Platelet Volume 8.1 fl (7.4-10.4); Monocytes Absolute Auto 0.8 K/mm3 (0.1-0.6); Monocytes Percent Auto 10.2 % (2.6-8.5); Neutrophils Absolute Auto 4.1 K/mm3 (1.3-6.7); Neutrophils Percent Auto 51.2 % (45.5-73.1); Platelet Count Result 289 k/mm3 (150-375); Red Blood Count 4.14 M/mm3 (4.2-5.4); Red Cell Distribution Width 22.4 % (11.5-14.5); White Blood Count 8.1 K/mm3 (4.5-10.0)
[2022-01-06 05:45] LABS: Alkaline Phosphatase 38 U/L (38-126); Anion Gap 4 mmol/L (8-16); Aspartate Amino Transferase 18 U/L (14-36); Bilirubin,Total 0.3 mg/dL (0.2-1.3); Blood Urea Nitrogen 9 mg/dL (7-17); Calcium 8.7 mg/dL (8.4-10.2); Carbon Dioxide 27 mmol/L (22-30); Chloride 109 mmol/L (98-107); Estimated CRCL calculation 58 ml/min; Estimated Glomerular Filt Rate > 60; Glucose 96 mg/dL (65-110); Magnesium 1.8 mg/dL (1.6-2.3); Sodium 140 mmol/L (137-145)
[2022-01-06 05:50] LABS: Alanine Aminotransferase < 6 U/L (6-35)
[2022-01-06 06:00] VITALS: BP 138/55; PULSE 88; RESP 16; TEMP 36.7; O2SAT 94
[2022-01-06] MEDS: LEVOTHYROXINE SODIUM 50 MCG TABLET PO (06:22)
[2022-01-06 06:43] LABS: Hypochromasia 1+ (NORMAL); Platelet Estimate Adequate (Adequate)
[2022-01-06 06:44] LABS: Anisocytosis 1+ (NORMAL); Poikilocytosis 1+ (NORMAL)
[2022-01-06] MEDS: MORPHINE SULFATE (*CRX) 30 MG TABCR PO (08:56)
[2022-01-06] MEDS: PANTOPRAZOLE 40 MG TABLET PO (08:56)
[2022-01-06] MEDS: SERTRALINE HCL 25 MG TABLET PO (08:56)
[2022-01-06] MEDS: CARBIDOPA/LEVODOPA 25/100 MG TABLET 2 TABLET PO (08:57)
[2022-01-06] MEDS: CHOLECALCIFEROL 1,000 UNITS TABLET 5000 UNITS PO (08:57)
[2022-01-06] MEDS: LOSARTAN POTASSIUM 50 MG TABLET PO (08:57)
[2022-01-06] MEDS: ASPIRIN 81 MG ENTERIC TABLET PO (08:57)
--- NOTE | 2022-01-06 09:14 | PM.DS ---
DS: Admitting Diagnosis Discharge Date Admitting Diagnosis anemia DS: Discharge Diagnosis Discharge Diagnosis (1) Symptomatic anemia: Code(s): D64.9 - Anemia, unspecified Status: Acute (2) Lower extremity edema: Code(s): R60.0 - Localized edema Status: Acute Plan # symptomatic anemia likely recurrence of her iron deficiency anemia. She has this diagnosis in the past. Hemoccult test done in the ER was negative. iron level was low with low ferritin. Treated with IV Venofer during the hospital stay. She used to be getting iron infusion regularly as an outpatient but due to COVID she has not done that recently. Iron studies revealed iron deficiency and her labs. Status post 2 unit of packed red blood cell transfusion. H&H with appropriate rise. Monitor H&H during hospital stay and remained stable. Discharge hemoglobin of 8.8. Her symptoms improved with this. Her Eliquis has also been stopped. This was recently started by her PCP. She had been on Eliquis in the past for history of DVT. Venous duplex done in the hospital was negative for any DVT. She already has an appointment outpatient scheduled to see a Gastroenterology for repeat EGD on February 07. Which is advised to be kept. # lower extremity edema bilaterally likely due to high-output failure from symptomatic anemia. Venous duplex was done which came back negative for DVT. Stay off of Eliquis. Echo With normal ejection fraction grade 2 diastolic dysfunction. Lower extremity edema improved with treatment for anemia # history of DVT in the past had been off Eliquis for over year. Until recently restarted.She will be off Eliquis as no current indication and also leading to anemia # DVT prophylaxis SCDs only pharmacologic contraindicated due to anemia # coronary artery disease on aspirin # GERD # sick sinus syndrome status post pacemaker implantation # spinal stenosis # do not resuscitate # generalized anxiety disorder/ depression discussed options of treatment. started her on zoloft 25 mg daily. Titrate slowly as outpatient basis. counseling provided during the visit. She will continue to follow up with PCP with regard to this. DS: Summary Hospital Course Hospital Course: see above Time Spent with Patient Time attestation: Total time spent providing and/or coordinating discharge services: 35 minutes Exam Narrative: General: No acute distress, appears younger than stated age, overweight HEENT: Mucous membranes are moist, no oral pharyngeal erythema Respiratory: Clear to auscultation bilaterally, no increased work of breathing Cardiovascular: Right-sided pacemaker, regular rate, regular rhythm, no murmur, 2+ bilateral radial pedal pulses Gastrointestinal: Soft, nontender, nondistended, normoactive bowel sounds, no organomegaly Skin: Generalized pallor, non jaundice Musculoskeletal: 1+ edema bilateral lower extremities, changes to the knees consistent with bilateral knee replacements, 5/5 strength Neurological: Alert and oriented x4, speech is clear, no facial asymmetry no focal motor deficits Psychiatric: normal mood DS: Data Data Completed and Pending Labs on day of discharge: Labs from last 24 hours 01/06/22 01/06/22 05:25 05:25 WBC 8.1 RBC 4.14 L Hgb 8.8 L Hct 29.5 L MCV 71.3 L MCH 21.3 L MCHC 29.8 L RDW 22.4 H Plt Count 289 MPV 8.1 Immature Gran % (Auto) 0.2 Neut % (Auto) 51.2 Lymph % (Auto) 30.8 [place] % (Auto) 10.2 H Eos % (Auto) 6.5 H Baso % (Auto) 1.1 Lymph # (Auto) 2.50 [place] # (Auto) 0.8 H Eos # (Auto) 0.5 H Baso # (Auto) 0.1 Abs Immat Gran (auto) 0.02 Absolute Neuts (auto) 4.1 Absolute Nucleated RBC 0.0 Nucleated RBC % 0.0 Platelet Estimate Adequate Hypochromasia 1+ Poikilocytosis 1+ Anisocytosis 1+ Sodium 140 Potassium 4.0 Chloride 109 H Carbon Dioxide 27 Anion Gap 4 L BUN 9 Creatinine 0.70 Marisabel
== END 2022-01-06 10:45 | disposition home or self-care (01) ==
LOC: ANHED 18:31 → ANH3MED 18:56
PROVIDERS: Internal Medicine; Admitting Provider Family Medicine; Emergency Provider Emergency Medicine; PCP Family Medicine; Visit Provider Internal Medicine
DX: D64.9 Anemia, unspecified (principal); R60.0 Localized edema; R06.02 Shortness of breath; I10 Essential (primary) hypertension; G20 Parkinson's disease; E03.9 Hypothyroidism, unspecified; K21.9 Gastro-esophageal reflux disease without esophagitis; F41.1 Generalized anxiety disorder; F32.A Depression, unspecified; Z79.01 Long term (current) use of anticoagulants; Z79.82 Long term (current) use of aspirin; Z79.891 Long term (current) use of opiate analgesic; Z95.0 Presence of cardiac pacemaker; Z86.718 Personal history of other venous thrombosis and embolism; Z90.49 Acquired absence of other specified parts of digestive tract; Z98.1 Arthrodesis status; Z66 Do not resuscitate
CPT/HCPCS: 36415; 36430; 71046; 80048; 80053; 82607; 82728; 82746; 83540; 83550; 83735; 85025; 85027; 85046; 85610; 85730; 86850; 86900; 86901; 86920; 93005; 93306; 93970; 96365; 99285; A9270; G0378; J1756; J7050; P9016

== ENCOUNTER → 2023-06-21 14:41 | Outpatient (CLI) | payer MEDICARE, MEDICAID, SELFPAY ==
--- NOTE | ~2023-06-21 | CT_ITS ---
. EXAMINATION: CT abdomen pelvis wo con DATE: 06/21/2023 14:58 INDICATION: Right lower quadrant abdominal pain TECHNIQUE: Computed tomography (CT) of the abdomen and pelvis was performed without intravenous contr ast. Automated exposure control and iterative reconstruction technique were employed. Exam dose: 722 .76 mGy-cm total exam DLP. COMPARISON: 07/14/[address] scan 04/25/2021 CT abdomen pelvis FINDINGS: The lung bases are clear of infiltrate or consolidation. Right atrial and right ventricular pacemaker leads are noted. Heart size is within normal range. No p ericardial or pleural effusion. There is a large sliding hiatal hernia. Very prominent chronic dilatation of the common bile duct and left intrahepatic bile ducts is again n oted, as on 04/25/2021 CT abdomen pelvis examination, although pneumobilia is resolved since 04/25/2021 . No hepatic, splenic, pancreatic, adrenal or suspicious renal space occupying mass lesion is evident o n this limited noncontrast examination. No pancreatic duct dilatation. Pinpoint nonobstructing lower pole left renal calculus. No other urinary tract calculus or hydrourete ronephrosis is noted bilaterally. The urinary bladder is relatively evacuated. Status post hysterecto my. Is atherosclerotic calcification but normal caliber of the abdominal aorta. No intraperitoneal or ret roperitoneal or pelvic mass lesion or adenopathy or ascites is evident. There is a suture line in the sigmoid colon Status post right colectomy. No bowel obstruction or intraperitoneal free air is detected. There is diverticulosis of the left colon; no CT evidence of diverticulitis. Status post posterior and interbody lumbar surgical spinal fusion. IMPRESSION: Status post right colectomy Suture line of the sigmoid colon Diverticulosis of left colon; no CT evidence of diverticulitis No bowel obstruction or free air Status post cholecystectomy; chronic dilatation of the common bile duct and left intrahepatic bile du cts, also present on 04/25/2021 Large sliding hiatal hernia Pinpoint nonobstructing lower pole left renal calculus Status post hysterectomy Reviewed, dictated and finalized at [facility]. Reviewed, dictated and finalized at [facility]. 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
== END ==
PROVIDERS: PCP Surgery; Visit Provider Surgery
DX: R10.31 Right lower quadrant pain (principal); K57.30 Diverticulosis of large intestine without perforation or abscess without bleeding; Z90.49 Acquired absence of other specified parts of digestive tract; N20.0 Calculus of kidney
CPT/HCPCS: 74176

== ENCOUNTER 2023-06-25 00:42 | Emergency (ER) | payer MEDICARE, MEDICAID, SELFPAY ==
[2023-06-25] VITALS (16 sets, daily range): BP systolic 59–100; BP diastolic 43–74; PULSE 78–115; RESP 13–23; TEMP 36.4; O2SAT 93–100
--- NOTE | ~2023-06-25 | CT_ITS ---
EXAMINATION: CT chest abdomen pelvis wo con DATE: 06/25/2023 02:49 INDICATION: Chest pain. TECHNIQUE: Computed tomography (CT) of the chest, abdomen, and pelvis was performed without intraveno us contrast. Automated exposure control and iterative reconstruction technique were employed. The dos e-length product was 1223.89 mGy-cm. COMPARISON: CT abdomen and pelvis 06/21/2023, 04/25/2021 FINDINGS: CHEST CT: There is mild scarring at the lung apices. There is mild atelectasis bilaterally. A calcified left eloise ng nodule and calcified left hilar and mediastinal lymph nodes are consistent with old granulomatous disease. No pleural effusion. The heart size is normal. There is a large pericardial effusion. There is a right chest wall pacer with leads in the right atrium and right ventricle. There is a large slid ing hiatal hernia. ABDOMEN/PELVIS CT: Left hepatic lobe is small. There is chronic moderate intrahepatic biliary duct dilatation predominan tly involving left hepatic lobe. The common duct is dilated to 19 mm. There are stones in the common duct. Calcifications in the spleen are consistent with old granulomatous disease. The pancreas, adren al glands, and right kidney are normal. There is a 2 mm stone in left kidney. There are surgical chang ges of the bowel. There is diverticulosis of the colon without evidence of diverticulitis. There are no dilated loops of bowel. There is fat stranding around the suture in right anterior abdominal wall. There are no pathologically enlarged lymph nodes. There is no free intraperitoneal fluid. Aortic ath erosclerosis is noted. There are changes of anterior fusion procedures at L1-L2 and L2-L3. There are changes of posterior fusion procedure from L2 to S1. There is moderate lumbar spondylosis. There is a chronic compression fracture of L1. IMPRESSION: 1. Large pericardial effusion, new from 06/21/2023. 2. Large sliding hiatal hernia. 3. Choledocholithiasis. Intrahepatic and extrahepatic biliary duct dilatation is stable from . 4. Fat stranding around a suture in right anterior abdominal wall, consistent with inflammation versu s scarring. Reviewed, dictated and finalized at [facility]. 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 Large pericardial effusion, new from 06/21/2023. 2. Large sliding hiatal hernia. 3. Choledocholithiasis. Intrahepatic and extrahepatic biliary duct dilatation i s stable from 04/25/2021. 4. Fat stranding around a suture in right anterior abdominal wall, consistent w ith inflammation versus scarring.
--- NOTE | ~2023-06-25 | XR_ITS ---
EXAMINATION: XR chest 1V portable DATE: 06/25/2023 01:40 INDICATION: Chest pain. TECHNIQUE: A single frontal view of the chest was obtained. COMPARISON: Chest 2 views 01/03/2022 FINDINGS: There is mild atelectasis in the lower lung zones. No pleural effusion or pneumothorax. The heart size is normal. There is a large hiatal hernia. There is a right chest wall pacer with leads i n the right atrium and right ventricle. There are changes of anterior fusion procedure in lumbar spin e. IMPRESSION: 1. Mild atelectasis in the lower lung zones. 2. Large hiatal hernia. Reviewed, dictated and finalized at [facility]. 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
--- NOTE | 2023-06-25 00:44 | PC.NURSE ---
pt. had a brief period of unresponsiveness, pt. slumped over, foamed at the mouth and did not have a pulse. CPR started. after four total chest compressions, pt. pushed RN off chest and asked What are you doing ERP at bedside at this time. 0045 pt. alert awake and answering all questions appropriately 0046 pt. states she does not want CPR, or intubation. pt. refusing central line. pt. requesting family to be present and be made comfortable.
--- NOTE | 2023-06-25 00:55 | ECG_ITS ---
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
[2023-06-25 00:56] LABS: Glucose Point of Care 162 mg/dl (65-105)
--- NOTE | 2023-06-25 01:00 | ED.CHESTPAIN ---
HPI - Chest Pain General Chief Complaint: Chest Pain Stated Complaint: chest pain History of Present Illness HPI narrative: patient brought to the emergency department by EMS from her home in [facility]. She notes she has had chest discomfort since around 5:00 p.m.. During that time the pain has been persistent. EMS gave her 2 doses of fentanyl, additional aspirin and nitro without improvement of her pain. She denies all other review of systems. She was recently diagnosed with a mass on her right intestine and is following up. She states she has not been eating or drinking much because of the nausea. Patient shortly after arrival had an episode of asystole and staring. Quickly returned to baseline. Patient told the nurse that she is do not resuscitate do not intubate. She just wants to be comfortable. Related Data Home Medications Medication Instructions Recorded Confirmed aspirin 81 mg tablet,delayed 81 mg PO DAILY 01/11/21 06/18/23 release (Adult Aspirin Regimen) levothyroxine 50 mcg capsule 50 mcg PO DAILY 01/11/21 06/18/23 losartan 50 mg tablet 50 mg PO DAILY 01/11/21 06/18/23 omeprazole 40 mg capsule,delayed 40 mg PO DAILY 01/11/21 06/18/23 release cholecalciferol (vitamin D3) 125 5,000 unit PO DAILY 06/03/21 06/18/23 mcg (5,000 unit) tablet apixaban 2.5 mg tablet (Eliquis) 2.5 mg PO BID 06/14/23 06/18/23 curcumin-phosphatidylcholine 500 mg PO 06/14/23 06/18/23 mg capsule cyanocobalamin (vitamin B-12) 500 500 mcg PO DAILY 06/14/23 06/18/23 mcg lozenges (Vitamin B-12) hydrocodone 10 mg-acetaminophen 15 ml PO Q12H PRN 06/14/23 06/18/23 325 mg/15 mL (15 mL) oral solution magnesium 250 mg tablet 250 mg PO DAILY 06/14/23 06/18/23 valacyclovir 1 gram tablet 1,000 mg PO DAILY 06/14/23 06/18/23 vit [id number] factor-folic tablet PO 06/14/23 06/18/23 acid cmb#2 500 mcg-20 mg-800 mcg tablet (Intrinsi [id number]) Allergies Allergy/AdvReac Type Severity Reaction Status Date / Time meperidine Allergy Mild Rash Verified 06/18/23 10:38 celecoxib Allergy Unknown Unknown Verified 06/18/23 10:38 Sulfa (Sulfonamide Allergy Unknown Rash Verified 06/18/23 10:38 Antibiotics) codeine AdvReac Unknown Gastrointestinal Verified 06/18/23 10:38 Upset morphine AdvReac Nausea and Verified 06/25/23 00:57 Vomiting Review of Systems Review of Systems: Review of systems negative except for as documented in the [facility] Past Medical History Medical History (Updated 06/25/23 @ 04:56 by Kaitlin Luis MD) Anemia Arthritis Barretts esophagus (~2014) Chronic back pain Coronary artery disease Nonobstructive. Follows with Dr. Maxx Joya DVT (deep venous thrombosis) (~2008) Essential hypertension GERD (gastroesophageal reflux disease) History of DVT of lower extremity Narcotic dependency, continuous Pericarditis (06/2021) Sick sinus syndrome Spinal stenosis Surgical History Surgical History (Updated 06/18/23 @ 11:[address] [facility]) Fusion of lumbar spine (~1995) History of appendectomy History of cardiac catheterization (~2009) With minimal luminal abnormalities History of cholecystectomy History of colon resection sigmoidectomy 2008 diverticulitis laparoscopic right colectomy 2015 cecal polyp History of hernia repair Open repair of left flank incisional hernia and laparoscopic repair of ventral incisional hernia both with mesh reinforcement in 2013. History of incisional hernia repair laparoscopic repair with physio mesh 2013 History of tonsillectomy and adenoidectomy History of total hysterectomy with bilateral salpingo-oophorectomy (BSO) (~1973) History of total knee replacement Right in 1999, left and 2006 Dr. Pelayo in [place] Pacemaker (~04/2010) Due to sick sinus syndrome initial pacemaker placement was complicated by postoperative pneumothorax. Patient had generator exchange June 2021 Family History Family History (Reviewed 06/18
[2023-06-25] MEDS: SODIUM CHLORIDE 0.9% IV 1,000 ML 999 ML IV CONT ×3 (01:01→02:06)
[2023-06-25] MEDS: ONDANSETRON INJ 4 MG/2 ML VIAL IV PUSH ×2 (01:02→04:44)
[2023-06-25 01:05] LABS: Basophils Absolute Auto 0.1 K/mm3 (0.0-0.1); Basophils Percent Auto 0.6 % (0.2-1.2); Eosinophils Absolute Auto 0.1 K/mm3 (0-0.3); Eosinophils Percent Auto 0.6 % (0-4.4); Hematocrit 37.8 % (37.0-47.0); Hemoglobin 11.7 g/dL (12.0-15.0); Immature Granulocyte Absolute 0.04 K/mm3 (0.00-0.031); Immature Granulocyte Percent A 0.4 % (0-0.5); Lymphocytes Absolute Auto 1.76 K/mm3 (0.9-3.2); Lymphocytes Percent Auto 15.5 % (18.3-44.2); Mean Corpuscular Hemoglobin 28.7 pg (26-34); Mean Corpuscular Volume 92.6 fl (80-100); Mean Platelet Volume 9.5 fl (7.4-10.4); Monocytes Absolute Auto 0.8 K/mm3 (0.1-0.6); Monocytes Percent Auto 6.9 % (2.6-8.5); Neutrophils Absolute Auto 8.6 K/mm3 (1.3-6.7); Platelet Count Result 371 k/mm3 (150-375); Red Blood Count 4.08 M/mm3 (4.2-5.4); Red Cell Distribution Width 17.1 % (11.5-14.5); White Blood Count 11.4 K/mm3 (4.5-10.0)
[2023-06-25] MEDS: FAMOTIDINE 20 MG/2 ML VIAL IV PUSH (01:06)
[2023-06-25 01:15] LABS: INR 1.1; Prothrombin Time 15.2 Seconds (11.1-14.7)
[2023-06-25 01:16] LABS: Partial Thromboplastin Time 29.3 SECONDS (22.3-36.8)
[2023-06-25 01:18] LABS: Alanine Aminotransferase 218 U/L (6-35); Albumin Level 4.2 g/dL (3.5-5.1); Alkaline Phosphatase 161 U/L (38-126); Anion Gap 12 mmol/L (8-16); Aspartate Amino Transferase 400 U/L (14-36); Bilirubin,Total 0.9 mg/dL (0.2-1.3); Blood Urea Nitrogen 24 mg/dL (7-17); Calcium 9.6 mg/dL (8.4-10.2); Carbon Dioxide 20 mmol/L (22-30); Chloride 106 mmol/L (98-107); Estimated CRCL calculation 44 ml/min; Estimated Glomerular Filt Rate 53; Glucose 160 mg/dL (65-110); Lipase 79 U/L (23-300); Potassium 4.3 mmol/L (3.4-5.0); Sodium 138 mmol/L (137-145)
[2023-06-25 01:30] LABS: NT Pro B Type Natriuretic Pept 140 pg/mL (19.9-100); Troponin I < 0.012 ng/mL (0.000-0.034)
[2023-06-25] MEDS: BELLADONNA ALK/PHENOB ELIX 10 ML, MAG HYDROX/ALUMINUM HYD/SIMETH 30 ML, LIDOCAINE HCL 2... PO (01:36)
[2023-06-25] MEDS: KETOROLAC 30 MG/ML VIAL (*BKC) IV PUSH (02:16)
--- NOTE | 2023-06-25 02:26 | PC.NURSE ---
Pt c/o increased pain. Pt yelling in pain, restless on stretcher. EDP Toby notified, new orders placed.
[2023-06-25] MEDS: fentaNYL CITRATE INJ (*CRX) 100 MCG/2 ML VIAL 50 MCG IV PUSH ×2 (02:28→03:08)
[2023-06-25 04:31] LABS: Troponin I < 0.012 ng/mL (0.000-0.034)
--- NOTE | 2023-06-25 04:33 | PM.EVENT ---
Event Note Event Note Event Note: CAlled by ER re: this pt w/ CP, hypotension (BP initally 60-70's), hemopericardium, poss liver mass. Apparently no trauma, may be a malignant effusion. BP improved w/ 2 L IV fluids. Reviewed CT scans; not much fluid anteriorly, most is posterolaterally. Would be challenging to address w/ pericardiocentesis w/o increased risk of cardiac puncture or PTX. Also, this appears an abrupt bleed, and she is taking Eliquis, so she may continue to bleed. Rec transfer to a facility with cardiothoracic surgery back-up and consider pericardiocentesis with CTS back-up vs. surgical approach. Review of office records shows pt has had a pericardial friction rub for months, Echo showed a trivial pericardial effusion, pt declined CT. Tx'd w/ colchicine. Discussed again with Dr. Cheema, pt has been accepted to [facility].
== END 2023-06-25 05:07 | disposition short-term general hospital (02) ==
PROVIDERS: Emergency Provider Emergency Medicine; PCP Surgery
DX: I31.2 Hemopericardium, not elsewhere classified (principal); I95.9 Hypotension, unspecified; R07.9 Chest pain, unspecified; I10 Essential (primary) hypertension; I25.10 Atherosclerotic heart disease of native coronary artery without angina pectoris; D64.9 Anemia, unspecified; K21.9 Gastro-esophageal reflux disease without esophagitis; M19.90 Unspecified osteoarthritis, unspecified site; Z66 Do not resuscitate; Z96.653 Presence of artificial knee joint, bilateral; Z95.0 Presence of cardiac pacemaker; Z98.1 Arthrodesis status; Z86.718 Personal history of other venous thrombosis and embolism; Z90.49 Acquired absence of other specified parts of digestive tract; Z90.710 Acquired absence of both cervix and uterus; Z90.722 Acquired absence of ovaries, bilateral; Z90.79 Acquired absence of other genital organ(s); Z79.82 Long term (current) use of aspirin; Z79.01 Long term (current) use of anticoagulants; R00.0 Tachycardia, unspecified; R94.31 Abnormal electrocardiogram [ECG] [EKG]
CPT/HCPCS: 36415; 71045; 71250; 74176; 80053; 82948; 83690; 83880; 84484; 85025; 85610; 85730; 93005; 96361; 96374; 96375; 96376; 99285; A9270; J1885; J2405; J3010; J7030

== ENCOUNTER → 2023-07-23 12:59 | Outpatient (CLI) | payer MEDICARE, MEDICAID, SELFPAY ==
--- NOTE | ~2023-07-23 | CT_ITS ---
EXAMINATION: CT abdomen pelvis wo con DATE: 07/23/2023 13:27 INDICATION: Unspecified abdominal hernia without obstruction TECHNIQUE: Computed tomography (CT) of the abdomen and pelvis was performed without intravenous contr ast. The dose-length product (DLP) was 734.23 mGy-cm. Automated exposure control and iterative recons truction technique were employed. COMPARISON: 06/25/2023 FINDINGS: There is mild dependent atelectasis of the visualized lung bases. Cardiomegaly is noted. Th ere is a large, partially imaged sliding hiatal hernia. Changes of cholecystectomy are noted. There i s pneumobilia of the left hepatic lobe. Chronic choledocholithiasis and intrahepatic and extrahepatic biliary dilatation are noted. There is a 2.6 cm hypoattenuating area at the lateral aspect of the sp yecenia which is new since the comparison examination. The kidneys are unremarkable. No pathologically e nlarged abdominal or pelvic lymph nodes are identified. No free intraperitoneal gas or evidence of jovanni wel obstruction. Changes of right hemicolectomy are noted. There is a 3.2 x 3.2 cm subcutaneous soft tissue abscess of the right lower quadrant corresponding to the area of clinical interest. There are changes of anterior and posterior fusion in the lumbar spine. A chronic compression fracture of L1 is again noted. IMPRESSION: 1. 3.2 x 3.2 cm subcutaneous soft tissue abscess of the right lower quadrant. 2. New area of hypoattenuation in the lateral aspect of the spleen which could reflect infarct or les s likely splenic abscess. 3. Large sliding hiatal hernia. 4. Chronic choledocholithiasis with intrahepatic and extrahepatic biliary dilatation. Reviewed, dictated and finalized at location B. NATAL DIRECTOR IMPRESSION: 1. 3.2 x 3.2 cm subcutaneous soft tissue abscess of the right lower quadrant. 2. New area of hypoattenuation in the lateral aspect of the spleen which could reflect infarct or less likely splenic abscess. 3. Large sliding hiatal hernia. 4. Chronic choledocholithiasis with intrahepatic and extrahepatic biliary dilat ation.
== END ==
PROVIDERS: PCP Family Medicine; Visit Provider Surgery
DX: K46.9 Unspecified abdominal hernia without obstruction or gangrene (principal); K44.9 Diaphragmatic hernia without obstruction or gangrene
CPT/HCPCS: 74176

== ENCOUNTER 2023-08-12 08:29 | Inpatient (IN) | payer MEDICARE, MEDICAID, SELFPAY ==
[2023-08-12] VITALS (14 sets, daily range): BP systolic 135–174; BP diastolic 62–107; PULSE 86–115; RESP 11–20; TEMP 36.2–36.8; O2SAT 97–100; BMI 31.0
--- NOTE | ~2023-08-12 | XR_ITS ---
Right Shoulder Technique: AP and scapular Y views were obtained. Clinical History: Pain Findings: No fracture or dislocation is seen. Osseous alignment is anatomic. There is moderate AC fabiano nt degenerative change. Glenohumeral joint is intact. Possible high riding humeral head. Soft tissues are unremarkable. Impression: Possible high riding humeral head. Consider underlying rotator cuff tear. Moderate AC joint degenerative change. Reviewed, dictated and finalized at location . INFRASTRUCTURE ARCHITECT Impression: Possible high riding humeral head. Consider underlying rotator cuff tear. Moderate AC joint degenerative change.
--- NOTE | ~2023-08-12 | CT_ITS ---
EXAMINATION: CT brain wo con DATE: 08/12/2023 09:00 INDICATION: Right facial droop, right-sided weakness TECHNIQUE: Computed tomography (CT) of the head was performed without intravenous contrast. The mA wa s adjusted according to patient size. Iterative reconstruction technique was employed. Exam dose: 60 5.33 mGy-cm total exam DLP. COMPARISON: None FINDINGS: Bilateral carotid siphon internal carotid artery calcifications are noted in addition to so me vertebral artery and basilar artery atherosclerotic calcification. There is nonspecific diminished attenuation of the cerebral white matter, likely due to chronic small vessel ischemic changes. Bilateral basal ganglia calcifications. No intracranial mass lesion or hemorrhage, midline shift or mass effect. No recent or remote cerebrov ascular accident is evident. No subdural or epidural hematoma. No fracture or bone destruction of the cranial vault. There is minimal opacification of right mastoid air cells. The mastoid air cells and paranasal sinuse s are otherwise unremarkable. No fracture or bone destruction of the cranial vault. IMPRESSION: Cerebral atherosclerosis and chronic small vessel ischemic changes of the cerebral white matter No acute intracranial finding Dr. Rae telephoned the report on 08/12/2023 at 0917 hours to emergency room physician Dr. Alfaro Reviewed, dictated and finalized at [facility]. Reviewed, dictated and finalized at location [facility]. ENSER OPERATOR IMPRESSION: Cerebral atherosclerosis and chronic small vessel ischemic changes of the cerebral white matter No acute intracranial finding Dr. Rae telephoned the report on 08/12/2023 at 0917 hours to emergency room phys deborah Alfaro
--- NOTE | ~2023-08-12 | CT_ITS ---
EXAMINATION: CTA brain carotid DATE: 08/12/2023 09:00 INDICATION: Right-sided facial droop TECHNIQUE: Computed tomographic angiography (CTA) of the head was performed with 100 mL Omnipaque-350 intravenous contrast. CTA of the neck was performed with intravenous contrast. The dose-length produ ct was 1018.36 mGy-cm. Maximum intensity projection and volume rendered 3D-reconstructions were creat ed by the technologist on a separate workstation. Automated exposure control and iterative reconstruc tion technique were employed. COMPARISON: 08/12/2023 FINDINGS: HEAD CTA: There is no acute intraparenchymal hemorrhage. No evidence of mass lesion. No evidence of a cute infarction. There is mild periventricular and subcortical hypodensity probably related to small vessel ischemic disease. There is mild prominence of the sulci and ventricles related to cerebral atr ophy. Intracranial calcified cerebral atherosclerosis is noted. There are no extra-axial collections. There is no mass effect or midline shift. Changes in the globes are likely from ocular lens surgery. The visualized sinuses and mastoid air cells are well aerated. There is no significant stenosis of the basilar artery or posterior cerebral arteries. There is no si gnificant stenosis of the intracranial internal carotid arteries or the anterior or middle cerebral a rteries. The anterior communicating artery and posterior communicating arteries are normal. There is no aneurysm. NECK CTA: Thyroid nodules measure up to 3 mm. The submandibular and parotid glands are symmetric. The re is no lymphadenopathy. There are no masses identified. The airway is unremarkable. The superior me diastinum is unremarkable. There is mild cervical spondylosis. Minimal airspace opacities are noted i n the upper lung zones. There is 0% stenosis of the proximal right internal carotid artery relative to normal distal artery l umen diameter (NASCET criteria). There is 0% stenosis of the proximal left internal carotid artery re lative to normal distal artery lumen diameter. IMPRESSION: 1. No acute intracranial abnormality. Unremarkable head CTA. 2. 0% stenosis of the proximal right internal carotid artery relative to normal distal artery lumen d iameter (NASCET criteria). 3. 0% stenosis of the proximal left internal carotid artery relative to normal distal artery lumen di ameter. Reviewed, dictated and finalized at location F. S DEVELOPMENT EXECUTIVE IMPRESSION: 1. No acute intracranial abnormality. Unremarkable head CTA. 2. 0% stenosis of the proximal right internal carotid artery relative to normal distal artery lumen diameter (NASCET criteria). 3. 0% stenosis of the proximal left internal carotid artery relative to normal distal artery lumen diameter.
--- NOTE | ~2023-08-12 | XR_ITS ---
Right elbow Technique: AP, oblique, and lateral views were obtained. Clinical History: Pain Findings: No acute fracture or dislocation is seen. Osseous alignment is anatomic. Joint spaces are p reserved. There is no displacement of the fat pads, and soft tissues are unremarkable. Impression: Unremarkable radiographs. Reviewed, dictated and finalized at [facility]. RACT MAKER Impression: Unremarkable radiographs.
--- NOTE | ~2023-08-12 | XR_ITS ---
XR chest 1V DATE: 08/12/2023 09:04 INDICATION: Cerebrovascular accident TECHNIQUE: Portable AP chest on 08/12/2023 at 0901 hours COMPARISON: 06/[address] chest abdomen examination FINDINGS: There is cardiac enlargement which may be due to cardiomegaly and/or pericardial effusion s nan the colon pericardial effusion was noted on 06/25/2023 CT examination. Large hiatal hernia is noted. Right-sided dual-lead pacemaker device with leads overlying right atrium and right ventricle. No summer r or mediastinal enlargement. Possible infiltrate or atelectasis in the medial left lower lobe; otherwise the lungs are clear. No p leural effusion or pulmonary vascular congestion or pneumothorax is detected. Diffuse osteopenia. Resection lateral aspect of left clavicle. Bilateral chronic rotator cuff atrophy . Surgical fusion hardware is noted in the upper lumbar spine. IMPRESSION: Cannot exclude mild infiltrate or atelectasis, left lower lobe Cardiac silhouette enlargement which may be due to cardiomegaly and/or pericardial effusion Large hiatal hernia Aortic atherosclerosis Right-sided dual-lead pacemaker Postoperative change of lumbar spine Bilateral chronic rotator cuff atrophy Osteopenia Reviewed, dictated and finalized at location A. HBOARD STUFFER IMPRESSION: Cannot exclude mild infiltrate or atelectasis, left lower lobe Cardiac silhouette enlargement which may be due to cardiomegaly and/or pericard ial effusion Large hiatal hernia Aortic atherosclerosis Right-sided dual-lead pacemaker Postoperative change of lumbar spine Bilateral chronic rotator cuff atrophy Osteopenia
--- NOTE | ~2023-08-12 | CT_ITS ---
EXAMINATION: CTA brain carotid DATE: 08/12/2023 16:19 INDICATION: Neuro deficits TECHNIQUE: Computed tomographic angiography (CTA) of the head was performed with 100 mL Omnipaque-350 intravenous contrast. CTA of the neck was performed with intravenous contrast. The dose-length produ ct was 1052.77 mGy-cm. Maximum intensity projection and volume rendered 3D-reconstructions were creat ed by the technologist on a separate workstation. Automated exposure control and iterative reconstruc tion technique were employed. COMPARISON: 0850 hours FINDINGS: HEAD CTA: There is no acute intraparenchymal hemorrhage. No evidence of mass lesion. No evidence of a cute infarction. There is mild periventricular and subcortical hypodensity probably related to small vessel ischemic disease. There is mild prominence of the sulci and ventricles related to cerebral atr ophy. Intracranial calcified cerebral atherosclerosis is noted. There are no extra-axial collections. There is no mass effect or midline shift. Changes in the globes are likely from ocular lens surgery. The visualized sinuses and mastoid air cells are well aerated. There is no significant stenosis of the basilar artery or posterior cerebral arteries. There is no si gnificant stenosis of the intracranial internal carotid arteries or the anterior or middle cerebral a rteries. The anterior communicating artery and posterior communicating arteries are normal. There is no aneurysm. NECK CTA: Thyroid nodules measure up to 3 mm. The submandibular and parotid glands are symmetric. The re is no lymphadenopathy. There are no masses identified. The airway is unremarkable. The superior me diastinum is unremarkable. There is mild cervical spondylosis. There are minimal airspace opacities o f the upper lung zones. There is 0% stenosis of the proximal right internal carotid artery relative to normal distal artery l umen diameter (NASCET criteria). There is 0% stenosis of the proximal left internal carotid artery re lative to normal distal artery lumen diameter. IMPRESSION: 1. No acute intracranial abnormality. Unremarkable head CTA. 2. 0% stenosis of the proximal right internal carotid artery relative to normal distal artery lumen d iameter (NASCET criteria). 3. 0% stenosis of the proximal left internal carotid artery relative to normal distal artery lumen di ameter. Reviewed, dictated and finalized at location F. RMATION ARCHITECT IMPRESSION: 1. No acute intracranial abnormality. Unremarkable head CTA. 2. 0% stenosis of the proximal right internal carotid artery relative to normal distal artery lumen diameter (NASCET criteria). 3. 0% stenosis of the proximal left internal carotid artery relative to normal distal artery lumen diameter.
--- NOTE | ~2023-08-12 | CT_ITS ---
EXAMINATION: CT brain wo con DATE: 08/14/2023 09:53 INDICATION: Cerebral vascular accident. TECHNIQUE: Computed tomography (CT) of the head was performed without intravenous contrast. The mA wa s adjusted according to patient size. Iterative reconstruction technique was employed. The dose-lengt h product was 605.33 mGy-cm. COMPARISON: Head CT 08/12/2023 FINDINGS: There is an old infarct in right temporal occipital region. There are scattered areas of lo w attenuation in the cerebral white matter. There is no intracranial hemorrhage, acute infarction, or abnormal intracranial mass lesion. There are old lacunar infarcts in the right basal ganglia. The ve ntricles are normal in size. There are likely changes of ocular lens replacement surgeries. There is mild mucosal thickening in the ethmoid sinuses. There is a small right mastoid effusion. IMPRESSION: 1. 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 2. Extensive nonspecific cerebral white matter disease, which likely represents chronic small vessel ischemic disease. Reviewed, dictated and finalized at location A. RIG SAWYER IMPRESSION: 1. Old infarcts involving the right temporal occipital region and right basal g anglia. 2. Extensive nonspecific cerebral white matter disease, which likely represents chronic small vessel ischemic disease.
--- NOTE | 2023-08-12 08:42 | ECG_ITS ---
Measurements Intervals [place] Rate: 104 P: ID: 0 QRS: -35 QRSD: 74 T: 85 QT: 347 QTc: 457 Interpretive Statements ATRIAL FIBRILLATION WITH RAPID VENTRICULAR RESPONSE VENTRICULAR PREMATURE COMPLEXES LEFT AXIS DEVIATION INFERIOR INFARCT, AGE INDETERMINATE BORDERLINE ST-T WAVE ABNORMALITY- HIGH LATERAL LEADS BASELINE ARTIFACT- I, II, III, AVR, AVL, AVF, V1-V2, V4-V6 ABNORMAL ECG COMPARED TO ECG 06/25/2023 00:51:17 ATRIAL FIBRILLATION NOW PRESENT LEFT-AXIS DEVIATION NOW PRESENT Electronically Signed On 08-12-2023 9:32:33 MIXING TUMBLER OPERATOR by Bayron Clemente D.O.
[2023-08-12 08:45] LABS: Glucose Point of Care 110 mg/dl (65-105)
[2023-08-12 08:51] LABS: Basophils Absolute Auto 0.1 K/mm3 (0.0-0.1); Basophils Percent Auto 0.4 % (0.2-1.2); Hemoglobin 12.8 g/dL (12.0-15.0); Immature Granulocyte Absolute 0.05 K/mm3 (0.00-0.031); Immature Granulocyte Percent A 0.4 % (0-0.5); Lymphocytes Absolute Auto 0.81 K/mm3 (0.9-3.2); Lymphocytes Percent Auto 5.7 % (18.3-44.2); Mean Corpuscular HGB Conc 30.5 g/dl (32-36); Mean Corpuscular Hemoglobin 26.4 pg (26-34); Mean Corpuscular Volume 86.6 fl (80-100); Mean Platelet Volume 9.3 fl (7.4-10.4); Monocytes Absolute Auto 0.7 K/mm3 (0.1-0.6); Monocytes Percent Auto 5.2 % (2.6-8.5); Neutrophils Absolute Auto 12.6 K/mm3 (1.3-6.7); Neutrophils Percent Auto 88.3 % (45.5-73.1); Platelet Count Result 411 k/mm3 (150-375); Red Blood Count 4.85 M/mm3 (4.2-5.4); Red Cell Distribution Width 17.1 % (11.5-14.5); White Blood Count 14.2 K/mm3 (4.5-10.0)
[2023-08-12 09:00] LABS: Alanine Aminotransferase 18 U/L (6-35); Albumin Level 4.4 g/dL (3.5-5.1); Alkaline Phosphatase 73 U/L (38-126); Anion Gap 12 mmol/L (8-16); Aspartate Amino Transferase 39 U/L (14-36); Bilirubin,Total 0.9 mg/dL (0.2-1.3); Blood Urea Nitrogen 21 mg/dL (7-17); Calcium 10.1 mg/dL (8.4-10.2); Carbon Dioxide 23 mmol/L (22-30); Chloride 105 mmol/L (98-107); Estimated Glomerular Filt Rate > 60; Glucose 134 mg/dL (65-110); Potassium 4.1 mmol/L (3.4-5.0); Sodium 140 mmol/L (137-145)
[2023-08-12 09:04] LABS: Estimated Glomerular Filt Rate > 60
[2023-08-12 09:11] LABS: Troponin I < 0.012 ng/mL (0.000-0.034)
[2023-08-12 09:16] LABS: INR 1.1; Partial Thromboplastin Time 33.8 SECONDS (22.3-36.8); Prothrombin Time 14.2 Seconds (11.1-14.7)
--- NOTE | 2023-08-12 09:31 | ED.NEUROSD ---
HPI - Neuro Symptoms/Deficit General Chief Complaint: Suspected CVA Stated Complaint: code stroke Time Seen by Provider: 08/12/23 08:41 Source: patient, family and EMS Mode of arrival: EMS Limitations: no limitations History of Present Illness HPI Narrative: 82 years old white female lives alone, did not answer her daughter phone call yesterday at 4:30 a.m. which is sometimes normal, this morning did not answer the phone again. Her daughter went to her house to take her to the charge found her sitting on the floor again it is a recliner unable to get up. With slurred speech and left facial drooping. Patient reported that this started at 7:00 p.m. last night. Patient used to be on Eliquis for atrial fibrillation which stopped June 2023 for Watchman procedures next few weeks. Patient denies any trauma or fall. Related Data Home Medications Medication Instructions Recorded Confirmed levothyroxine 50 mcg capsule 50 mcg PO DAILY 01/11/21 08/09/23 losartan 50 mg tablet 50 mg PO DAILY 01/11/21 08/09/23 omeprazole 40 mg capsule,delayed 40 mg PO DAILY 01/11/21 08/09/23 release cholecalciferol (vitamin D3) 125 5,000 unit PO DAILY 06/03/21 08/09/23 mcg (5,000 unit) tablet curcumin-phosphatidylcholine 500 mg PO 06/14/23 08/09/23 mg capsule cyanocobalamin (vitamin B-12) 500 500 mcg PO DAILY 06/14/23 08/09/23 mcg lozenges (Vitamin B-12) hydrocodone 10 mg-acetaminophen 15 ml PO Q12H PRN 06/14/23 08/09/23 325 mg/15 mL (15 mL) oral solution magnesium 250 mg tablet 250 mg PO DAILY 06/14/23 08/09/23 valacyclovir 1 gram tablet 1,000 mg PO DAILY 06/14/23 08/09/23 vit H81-[id number] factor-folic tablet PO 06/14/23 08/09/23 acid cmb#2 500 mcg-20 mg-800 mcg tablet (Intrinsi [id number]) Allergies Allergy/AdvReac Type Severity Reaction Status Date / Time meperidine Allergy Mild Rash Verified 08/09/23 09:47 celecoxib Allergy Unknown Unknown Verified 08/09/23 09:47 Sulfa (Sulfonamide Allergy Unknown Rash Verified 08/09/23 09:47 Antibiotics) codeine AdvReac Unknown Gastrointestinal Verified 08/09/23 09:47 Upset morphine AdvReac Nausea and Verified 08/09/23 09:47 Vomiting PMFSH Past Medical History Medical History Anemia Arthritis Barretts esophagus (~2014) Chronic back pain Coronary artery disease Nonobstructive. Follows with Dr. Maxx Joya DVT (deep venous thrombosis) (~2008) Essential hypertension GERD (gastroesophageal reflux disease) History of DVT of lower extremity Narcotic dependency, continuous Pericarditis (06/2021) Sick sinus syndrome Spinal stenosis Surgical History Surgical History Fusion of lumbar spine (~1995) History of appendectomy History of cardiac catheterization (~2009) With minimal luminal abnormalities History of cholecystectomy History of colon resection sigmoidectomy 2007 diverticulitis laparoscopic right colectomy 2014 cecal polyp History of hernia repair Open repair of left flank incisional hernia and laparoscopic repair of ventral incisional hernia both with mesh reinforcement in 2013. History of incisional hernia repair laparoscopic repair with physio mesh 2013 History of tonsillectomy and adenoidectomy History of total hysterectomy with bilateral salpingo-oophorectomy (BSO) (~1973) History of total knee replacement Right in 1999, left and 2007 Dr. Pelayo in [place] Pacemaker (~04/2010) Due to sick sinus syndrome initial pacemaker placement was complicated by postoperative pneumothorax. Patient had generator exchange June 2021 Family History Family History Mother Diabetes mellitus Dementia Father Family history of throat cancer Social History Social History Social History: She lives in her own home and is independent activitie
[2023-08-12 09:43] LABS: Creatine Kinase 550 U/L (30-135)
[2023-08-12] MEDS: ASPIRIN 325 MG TABLET PO (10:23)
[2023-08-12] MEDS: SODIUM CHLORIDE 0.9% IV 1,000 ML 999 ML IV CONT (12:14)
--- NOTE | 2023-08-12 13:04 | PM.IMHP ---
H&P: HPI History of Present Illness Date/Time: 08/12/23 13:04 Chief Complaint: Focal Weakness, Facial Droop Narrative: 82 y/o F presents here with a new facial droop, weakness, and slurred speech with PMH of anemia, Plasencia's esophagus, CAD, DVT, HTN, GERD, pericarditis, SSS, and spinal stenosis. Patient unable to provide history at this time. HPI obtained through chart review, RN report, ED provider report and her daughter's report. Patient presented here via EMS from home with RUE/RLE weakness, L facial droop, and slurred speech. Patient reported that she began having vision changes, which she described as her vision going dark , around 7 pm last night (08/11/23). When her vision changes began she slid herself to the floor from her chair and then was unable to move to reach the phone. Daughter attempted to call the patient today (08/12/23) around 04:30a and patient did not answer. After patient continued to not answer she went to her home to check on her. Her daughter found her on the ground with a L facial droop, RUE/RLE weakness and slurred speech. Called EMS and she arrived to the hospital around 09:00a. Patient was only slurring some words and some loss of fluency. Head CT did not show any acute intracranial findings, some chronic findings. CTA of the head and neck were done. Initially read as anterior circulation without demonstrated occlusion or significant stenosis, bilateral posterior communicating arteries, and absent or hypoplastic left P1 segment. As well as scattered vascular opacifications, no significant carotid artery stenosis by NASCET criteria on either side, vertebral arteries are unremarkable. CXR showed possible infiltrates or atelectasis of the left lower lobe, cardiomegaly, large hiatal hernia, aortic atherosclerosis, and right-sided pacemaker. Lab work was significant for a mildly elevated white count at 14.2, glucose was 134, CK 550, AST 39, and troponin negative x2. Per RN report, patient arrived to the floor with moderately garbled speech. Was discernable if patient talked slowly, but awake and interactive around 14:50p. Upon further assessment shortly thereafter (15:15) patient was requiring repeated stimulation to arouse. Speech difficult to understand and not able to identify basic objects (i.e. a pair of glasses). No respiratory distress, PERRLA, and intermittently following commands. Review of Systems Review of Systems: All systems reviewed & are unremarkable except as noted in HPI and below [facility] Past Medical History Medical History Anemia Arthritis Barretts esophagus (~2014) Chronic back pain Coronary artery disease Nonobstructive. Follows with Dr. Maxx Joya DVT (deep venous thrombosis) (~2008) Essential hypertension GERD (gastroesophageal reflux disease) History of DVT of lower extremity Narcotic dependency, continuous Pericarditis (06/2021) Sick sinus syndrome Spinal stenosis Surgical History Surgical History Fusion of lumbar spine (~1995) History of appendectomy History of cardiac catheterization (~2009) With minimal luminal abnormalities History of cholecystectomy History of colon resection sigmoidectomy 2008 diverticulitis laparoscopic right colectomy 2015 cecal polyp History of hernia repair Open repair of left flank incisional hernia and laparoscopic repair of ventral incisional hernia both with mesh reinforcement in 2013. History of incisional hernia repair laparoscopic repair with physio mesh 2013 History of tonsillectomy and adenoidectomy History of total hysterectomy with bilateral salpingo-oophorectomy (BSO) (~1973) History of total knee replacement Right in 1999, left and 2006 Dr. Pelayo in [place] Pacemaker (~04/2010) Due to sick sinus syndrome initial pacemaker placement was complicated by postoperative pneumothorax. Patient had generator exchange November
--- NOTE | 2023-08-12 13:36 | PCSTNOTE ---
Attempted bedside swallowing evaluation. Patient not alert at this time. Will stay on list to be seen tomorrow.
--- NOTE | 2023-08-12 15:10 | PCOTNOTE ---
Attempted occupational therapy evaluation, RN and physician stated to hold off on therapy this date. Pt is not alert and not appropriate. Following.
--- NOTE | 2023-08-12 15:10 | PCPTNOTE ---
per RN, pt is still not alert and therapy should come back tomorrow for evaluation
[2023-08-12 15:34] LABS: Glucose Point of Care 90 mg/dl (65-105)
[2023-08-12] MEDS: LACTATED RINGERS 1,000 ML 100 ML IV CONT (15:42)
[2023-08-12 16:31] LABS: Lactic Acid Reflex 1.5 mmol/L (0.7-2.0)
[2023-08-12 16:50] LABS: Troponin I < 0.012 ng/mL (0.000-0.034)
[2023-08-12 17:52] LABS: Appearance Urine Clear (Clear); Bilirubin Urine Negative (Negative); Blood Urine Negative (Negative); Color Urine Yellow (Yellow); Glucose Urine UA Negative (Negative); Ketones Urine 1+ mg/dL (Negative); Leukocyte Esterase Ur Negative LEU/UL (Negative); Nitrate Urine Negative (Negative); Protein Urine Negative (Negative); Urobilinogen Urine 0.2 mg/dL (<2.0); pH Urine 6.5 (5.0-9.0)
[2023-08-12 17:54] LABS: Add Urine Microscopic? NO; Specific Grav Ur 1.057 (1.001-1.035)
[2023-08-13] VITALS (15 sets, daily range): BP systolic 112–156; BP diastolic 63–77; PULSE 57–135; RESP 12–24; TEMP 36.1–37.3; O2SAT 94–99; BMI 31.1
[2023-08-13] MEDS: MAGNESIUM SULF 1 GM/D5W 100 ML 1 GM/100 ML BAG IVPB (00:58)
[2023-08-13] MEDS: LEVOTHYROXINE SODIUM INJ 100 MCG/5 ML VIAL 25 MCG IV PUSH (05:58)
[2023-08-13 06:34] LABS: Basophils Absolute Auto 0.1 K/mm3 (0.0-0.1); Basophils Percent Auto 0.7 % (0.2-1.2); Eosinophils Absolute Auto 0.1 K/mm3 (0-0.3); Eosinophils Percent Auto 1.4 % (0-4.4); Hematocrit 36.2 % (37.0-47.0); Immature Granulocyte Absolute 0.03 K/mm3 (0.00-0.031); Immature Granulocyte Percent A 0.3 % (0-0.5); Lymphocytes Absolute Auto 1.68 K/mm3 (0.9-3.2); Lymphocytes Percent Auto 18.6 % (18.3-44.2); Mean Corpuscular HGB Conc 30.4 g/dl (32-36); Mean Corpuscular Hemoglobin 26.2 pg (26-34); Mean Corpuscular Volume 86.2 fl (80-100); Mean Platelet Volume 9.2 fl (7.4-10.4); Monocytes Absolute Auto 0.7 K/mm3 (0.1-0.6); Monocytes Percent Auto 7.6 % (2.6-8.5); Neutrophils Absolute Auto 6.4 K/mm3 (1.3-6.7); Neutrophils Percent Auto 71.4 % (45.5-73.1); Platelet Count Result 362 k/mm3 (150-375); Red Cell Distribution Width 17.3 % (11.5-14.5)
[2023-08-13 06:58] LABS: LDL Cholesterol Direct 61 mg/dL
[2023-08-13 07:04] LABS: Alanine Aminotransferase 12 U/L (6-35); Alkaline Phosphatase 57 U/L (38-126); Anion Gap 8 mmol/L (8-16); Aspartate Amino Transferase 32 U/L (14-36); Bilirubin,Total 0.6 mg/dL (0.2-1.3); Blood Urea Nitrogen 13 mg/dL (7-17); Calcium 8.8 mg/dL (8.4-10.2); Carbon Dioxide 20 mmol/L (22-30); Chloride 110 mmol/L (98-107); Cholesterol 140 mg/dL (0-200); Creatine Kinase 339 U/L (30-135); Estimated CRCL calculation 82 ml/min; Estimated Glomerular Filt Rate > 60; Glucose 93 mg/dL (65-110); HDL Direct 58 mg/dL; Potassium 3.4 mmol/L (3.4-5.0); Sodium 138 mmol/L (137-145); Triglycerides 90 mg/dL (<150)
[2023-08-13 07:52] LABS: Hemoglobin A1C 5.7 % (<5.7)
[2023-08-13 07:54] LABS: Thyroid Stimulating Hormone Reflex 0.338 uIU/mL (0.465-4.68)
[2023-08-13] MEDS: ASPIRIN 81 MG CHEWABLE TABLET PO (08:54)
[2023-08-13] MEDS: PANTOPRAZOLE SODIUM IV 40 MG VIAL IV PUSH (08:54)
[2023-08-13] MEDS: ENOXAPARIN 40 MG/0.4 ML SYRINGE SUB-Q (08:55)
--- NOTE | 2023-08-13 10:23 | PCSTNOTE ---
Please refer to the Bedside Swallow Evaluation in the EMR. Please note, silent aspiration cannot be ruled out at bedside.
--- NOTE | 2023-08-13 10:34 | PCOTNOTE ---
Attempted to see pt. for occupational therapy evaluation. Pt. just completed PT evaluation and has elevated HR at rest. Spoke with nursing who is in agreement for OT to be attempted at later time for safety concerns. Nursing to follow up with hospitalist. Following.
[2023-08-13] MEDS: METOPROLOL TARTRATE 12.5 MG TABLET PO ×2 (10:56→21:39)
--- NOTE | 2023-08-13 13:14 | ECHO_ITS ---
Patient Info Name: Kenyetta Chappell Age: 82 years : 1940 Gender: Female Ht: 66 in Wt: 192 lbs BSA: 2.04 m2 HR: 90 bpm BP: 156 / 77 mmHg Heart Rhythm: Atrial Fibrillation Technical Quality: Fair Exam Date: 08/13/2023 11:49 AM Exam Location: Echo Lab Patient Status: Inpatient Admit Date: 08/12/2023 Staff Ordering Physician: Una Galeano APRN Attending Provider: Ko Johnson MD Referring Physician: Froylan ALFONSO; Exam Type: CA echo doppler w bubble study Study Info Indications - CVA Complete two-dimensional, color flow and Doppler transthoracic echocardiogram is performed with agitated saline. Contrast/Agitated Saline Contrast/Ag. Saline: Agitated Saline Amount: 10.00 ml Existing IV Access: Yes IV Access Condition: patent with no signs of infiltration Summary 1. Left ventricular chamber dimension is normal. 2. Left ventricular systolic function is normal, estimated at 60-65%. 3. There is mild concentric increased left ventricular wall thickness. 4. The left ventricular diastolic function is indeterminate as tissue doppler is not performed.. 5. Atrial fibrillation. 6. Left atrial chamber dimension is moderately enlarged. 7. Right atrial chamber dimension is mildly enlarged. 8. There is mild aortic valve sclerosis. 9. There is trace aortic valve regurgitation. 10. There is mild mitral valve regurgitation. 11. There is mild to moderate tricuspid valve regurgitation. 12. Mild pulmonary hypertension, estimated pulmonary arterial systolic pressure is 41 mmHg. 13. There is trace pulmonic regurgitation. 14. Dilated inferior vena cava with >50% collapse upon inspiration consistent with elevated right atrial pressure, 10 mmHg. Left Ventricle Atrial fibrillation. The left ventricular diastolic function is indeterminate as tissue doppler is not performed.. Left ventricular chamber dimension is normal. Left ventricular systolic function is normal, estimated at 60-65%. There is mild concentric increased left ventricular wall thickness. Right Ventricle Right ventricular chamber dimension is normal. Right ventricular systolic function is normal. Left Atria Left atrial chamber dimension is moderately enlarged. Right Atria Right atrial chamber dimension is mildly enlarged. Atrial Septum Agitated saline injection opacified right side cardiac chambers without shunt to left side cardiac chambers. Interatrial septum not well visualized by 2D and agitated saline imaging. Aortic Valve The aortic valve is trileaflet. There is mild aortic valve sclerosis. There is no aortic valve stenosis. There is trace aortic valve regurgitation. Pulmonic Valve There is trace pulmonic regurgitation. Mitral Valve There is no mitral valve stenosis. There is mild mitral valve regurgitation. Tricuspid Valve There is mild to moderate tricuspid valve regurgitation. Mild pulmonary hypertension, estimated pulmonary arterial systolic pressure is 41 mmHg. Pericardium/Pleural There is no pericardial effusion. Inferior Vena Cava Dilated inferior vena cava with >50% collapse upon inspiration consistent with elevated right atrial pressure, 10 mmHg. Aorta The aortic root size at the sinus of Valsalva is normal. Left Ventricular Outflow Tract Name Value Normal LVOT 2D LV
[2023-08-13 15:14] LABS: Total Triiodothyronine (T3) 1.09 NG/ML (0.97-1.69)
--- NOTE | 2023-08-13 15:34 | PM.IMPN ---
Progress Note: A&P Assessment and Plan (1) Acute cerebrovascular accident (CVA): Code(s): I63.9 - Cerebral infarction, unspecified Status: Acute Assessment and Plan: Patient presents with stroke like symptoms with ew deficits of L facial droop, RUE/RLE weakness, and slurred speech CT Head: cerebral atherosclerosis, chronic small vessel ischemic changes but no acute intracranial finding. CTA of Head/Neck: No acute intracranial abnormality and unremarkable head CTA. No stenosis proximal bilateral ICA. Echo showing EF 60-65% wiht LV diastolic function and mild valvular disease except mild-mod TR, mild pHTN and elevated RAP. ASA started. Neurology consulted and appreciate thier input Statin on hold givne the mild elevation of the CK. PT/OT started ST evaluated the patient and felt the patient did not need any further evaluation for dysphagia but recommended ST for communication which was ordered. Has AFib chronically and remains uncovered. Consult Cardiology to discuss the risks/benefits of resuming anticoagulation. Repeat CT brain tomorrow. (2) Somnolence: Code(s): R40.0 - Somnolence Status: Acute Assessment and Plan: Secondary to acute CVA. CXR could not exclude mild infiltrate or atelectasis of the left lower lobe so consider PNA. Abx were not started on admission WBC 14 but normal now so probably stress response. TSH 0.34 with nomral FT4. Mental status better. Check B12, folate. Avoid sedating medications. (3) Elevated CPK: Code(s): R74.8 - Abnormal levels of other serum enzymes Status: Acute Assessment and Plan: Patient with mildly elevated CK. Related to being immobile overnight. CK 550 and now trending down. Follow. Start Lipitor tomorrow. (4) Subcutaneous abscess: Qualifiers: Site of cutaneous abscess: trunk Site of cutaneous abscess of trunk: abdominal wall Qualified Code(s): L02.211 - Cutaneous abscess of abdominal wall Code(s): L02.91 - Cutaneous abscess, unspecified Status: Acute Assessment and Plan: Right lower abd abscess that was I&D in the clinic on 07/24. There was scant drainage from the wound. Not felt to be infected Wound Care consulted and apprciate their input. (5) Atrial fibrillation: Code(s): I48.91 - Unspecified atrial fibrillation Status: Acute Assessment and Plan: Patient with chronic AFib. She was hospitalized in June for a hemorrhagic pericarditis per family and anticaogulation was stopped. [facility] was planning to perform a watchman and was waiting for the inflammation to subside. This was scheduled for 08/22 HR controlled but runs fast with exertion. On ateolol at home. Will use metoprolol. Cards consulted. Continue tele (6) Narcotic dependence: Code(s): F11.20 - Opioid dependence, uncomplicated Status: Acute Assessment and Plan: Patient takes Mckinnon for pain chronically. Cyrus hold this for now but be watchful for s/sx of withdrawal. Tylenol for pain Plan Diet: heart healthy GI Prophylaxis: Pantoprazole DVT Prophylaxis: SCDs, Lovenox Code Status: DNR/DNI Subjective Date/time seen: 08/13/23 15:34 Interval history: 82yo female with AFib not on anticoagulation, HTN and CAD here for focal weakness. Patient is alert but confused. Speech is garbled Review of Systems Review of Systems: ROS unobtainable: Yes unobtainable due to mental status Exam Narrative: AF 98.6 112/74 57 12 94% ra Gen - NARD Chest - CTA anteriorlly. CV -irregularly irregular. Abd - Soft, NT/ND, Positive BS Ext - No pedal edema Neuro -right-sided weakness 3-4/5. She is alert but confused. Garbled speech. Psych - Nml mood and affect Skin - Warm and dry Objective Data Vital Signs Vital Signs: Vital Signs - 24 hr 08/12/23 16:00 08/12/23 20:00 08/12/23 20:00 Temperature Pulse Rate 90 115 H Respiratory Rate Blo
[2023-08-14] VITALS (12 sets, daily range): BP systolic 121–160; BP diastolic 43–93; PULSE 74–118; RESP 14–20; TEMP 35.5–36.7; O2SAT 95–99
[2023-08-14 07:00] LABS: Alanine Aminotransferase 14 U/L (6-35); Albumin Level 3.1 g/dL (3.5-5.1); Alkaline Phosphatase 53 U/L (38-126); Anion Gap 7 mmol/L (8-16); Aspartate Amino Transferase 31 U/L (14-36); Bilirubin,Total 0.5 mg/dL (0.2-1.3); Blood Urea Nitrogen 13 mg/dL (7-17); Calcium 8.7 mg/dL (8.4-10.2); Carbon Dioxide 21 mmol/L (22-30); Chloride 111 mmol/L (98-107); Creatine Kinase 287 U/L (30-135); Estimated CRCL calculation 69 ml/min; Estimated Glomerular Filt Rate > 60; Glucose 103 mg/dL (65-110); Phosphorus 2.9 mg/dL (2.5-4.5); Potassium 3.4 mmol/L (3.4-5.0); Sodium 139 mmol/L (137-145)
[2023-08-14 08:13] LABS: Folic Acid > 20.0 ng/mL (2.76->20)
[2023-08-14] MEDS: ENOXAPARIN 40 MG/0.4 ML SYRINGE SUB-Q (09:06)
[2023-08-14] MEDS: PANTOPRAZOLE SODIUM IV 40 MG VIAL IV PUSH (09:06)
[2023-08-14] MEDS: ASPIRIN 81 MG CHEWABLE TABLET PO (09:06)
[2023-08-14] MEDS: POTASSIUM CHLORIDE 20 MEQ PACKET (FOR LIQUID) 40 MEQ PO (09:11)
[2023-08-14] MEDS: METOPROLOL TARTRATE 25 MG TABLET PO ×2 (09:12→20:44)
--- NOTE | 2023-08-14 10:25 | PM.CNCAR ---
Assessment and Plan Assessment and plan (1) Atrial fibrillation: Code(s): I48.91 - Unspecified atrial fibrillation Status: Acute Assessment and Plan: History of atrial fibrillation managed with rate control and anticoagulation. Recently taken off anticoagulation following hemopericardium requiring pericardiocentesis. Has been referred for possible LAAO closure. Unfortunately presents now with stroke symptoms. Interestingly head/neck CTA does not show any acute process. Old infarcts noted. Neurology saw patient today and is okay with anticoagulation being restarted at our discretion. Will resume apixaban 5mg p.o. b.i.d. Continue metoprolol 25mg b.i.d. Can up titrate as needed (2) Pericardial effusion: Code(s): I31.3 - Pericardial effusion (noninflammatory) Status: Acute Assessment and Plan: Recent hemopericardium requiring pericardiocentesis. Echo performed here did not show any pericardial effusion. Obviously with resumption of anticoagulation there is concern for recurrence. History of Present Illness History of Present Illness Consult date/time: 08/14/23 10:25 Requesting physician: Ko Johnson MD Consult reason: atrial fibrillation Reason For Visit: Acute CVA Narrative: Kenyetta Chappell Is an 82-year-old female with coronary artery disease, atrial fibrillation, and permanent pacemaker. She recently had hemopericardium treated with pericardiocentesis at an outside hospital. She had been advised to stop aspirin and Eliquis at that time and not resumed. Because of her significant risk for embolic stroke secondary to paroxysmal atrial fibrillation she was referred to Dr. Luna to evaluate her candidacy for a left atrial appendage occlusion device. Unfortunately, she comes to the hospital now with symptoms of stroke including facial droop, upper extremity weakness, and slurred speech. Review of Systems Review of Systems: All systems reviewed & are unremarkable except as noted in HPI and below PMFSH Past Medical History Medical History Anemia Arthritis Atrial fibrillation Barretts esophagus (~2014) Chronic back pain Coronary artery disease Nonobstructive. Follows with Dr. Maxx Joya DVT (deep venous thrombosis) (~2008) Essential hypertension GERD (gastroesophageal reflux disease) History of DVT of lower extremity Narcotic dependency, continuous Pericarditis (06/2021) Sick sinus syndrome Spinal stenosis Surgical History Surgical History Fusion of lumbar spine (~1995) History of appendectomy History of cardiac catheterization (~2009) With minimal luminal abnormalities History of cholecystectomy History of colon resection sigmoidectomy 2008 diverticulitis laparoscopic right colectomy 2015 cecal polyp History of hernia repair Open repair of left flank incisional hernia and laparoscopic repair of ventral incisional hernia both with mesh reinforcement in 2013. History of incisional hernia repair laparoscopic repair with physio mesh 2013 History of tonsillectomy and adenoidectomy History of total hysterectomy with bilateral salpingo-oophorectomy (BSO) (~1973) History of total knee replacement Right in 1999, left and 2006 Dr. Pelayo in [place] Pacemaker (~04/2010) Due to sick sinus syndrome initial pacemaker placement was complicated by postoperative pneumothorax. Patient had generator exchange June 2021 Family History Family History Mother Diabetes mellitus Dementia Father Family history of throat cancer Social History Social History Social History: She lives in her own home and is independent activities of daily living. She usually mows her own lawn drives in take care of her house work. 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 She then was a
--- NOTE | 2023-08-14 11:14 | WPDNEURCNPN ---
Consult date: 08/14/23 HPI: Kenyetta Chappell is a 82 year old female admitted to the hospital through the emergency room. Patient lives alone and did not answer her daughter phone call yesterday at 4:30 a.m. but this morning did not answer the phone call again when her daughter went to her house and found her sitting on the floor unable to get up slurred speech and drooping of the left side of the face patient had been on Eliquis for atrial fibrillation which was stopped in June of 2023 for Watchman procedures next few weeks. Patient has been taking levothyroxine, losartan, omeprazole, valacyclovir, and vitamin B12. She has multiple allergies as documented, he carries the diagnosis of coronary artery disease of nonobstructive nature along with hypertension and history of DVT of the lower extremity and pericarditis in June of 2021 in addition to sick sinus syndrome. She has undergone cardiac catheterization in 2009, fusion of the lumbar spine, and total knee replacement, bilaterally he has had the initial pacemaker placed the generator exchange in June 2021 is a never smoker never alcohol intake or does take the pain killers, initial vital signs were normal except blood pressure 174/83, CBC was normal, on chest x-ray she has a large hiatal hernia, cardiomegaly, right-sided dual lead pacemaker, and bilateral chronic rotator cuff atrophy CTA of the head absent or hypoplastic left P1 segment, CTA of the neck scattered vascular calcification EKG with atrial fibrillation and other abnormalities, recently she has had hemopericardium treated with pericardiocentesis at an outside hospital when she was advised to stop aspirin and Eliquis but subsequently not resumed ended up in the hospital before she could see Dr. john for left atrial appendage occlusion device. [facility] Past Medical History Medical History (Updated 08/13/23 @ 19:32 by Ko Johnson MD) Anemia Arthritis Atrial fibrillation Barretts esophagus (~2014) Chronic back pain Coronary artery disease Nonobstructive. Follows with Dr. Maxx Joya DVT (deep venous thrombosis) (~2008) Essential hypertension GERD (gastroesophageal reflux disease) History of DVT of lower extremity Narcotic dependency, continuous Pericarditis (06/2021) Sick sinus syndrome Spinal stenosis Surgical History Surgical History Fusion of lumbar spine (~1995) History of appendectomy History of cardiac catheterization (~2009) With minimal luminal abnormalities History of cholecystectomy History of colon resection sigmoidectomy 2008 diverticulitis laparoscopic right colectomy 2015 cecal polyp History of hernia repair Open repair of left flank incisional hernia and laparoscopic repair of ventral incisional hernia both with mesh reinforcement in 2013. History of incisional hernia repair laparoscopic repair with physio mesh 2013 History of tonsillectomy and adenoidectomy History of total hysterectomy with bilateral salpingo-oophorectomy (BSO) (~1973) History of total knee replacement Right in 1999, left and 2007 Dr. Pelayo in [place] Pacemaker (~04/2010) Due to sick sinus syndrome initial pacemaker placement was complicated by postoperative pneumothorax. Patient had generator exchange June 2021 Family History Family History Mother Diabetes mellitus Dementia Father Family history of throat cancer Social History Social History Social History: She lives in her own home and is independent activities of daily living. She usually mows her own lawn drives in take care of her house work. 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 She has 4 children. Code status: DNR/DNI Healthcare power of insurance sales specialist: Eduardo Davis
--- NOTE | 2023-08-14 11:30 | PCSTNOTE ---
A Communication Evaluation was completed and patient presents with mild-moderate dysarthria characterized as reduced vocal volume and mild speech sound imprecision. Continue Speech Therapy to address deficits.
--- NOTE | 2023-08-14 14:46 | WPDNEURCNPN ---
Assessment and Plan Assessment and plan (1) Atrial fibrillation: Code(s): I48.91 - Unspecified atrial fibrillation Status: Acute (2) Acute cerebrovascular accident (CVA): Code(s): I63.9 - Cerebral infarction, unspecified Status: Acute Plan 1. Normal head and neck CTA with old infarct involving the right temporal occipital region and right basal ganglia 2. Atrial fibrillation 3. Candidate for the Watchman procedure was off the anticoagulation therapy medications can be restarted if it is okay with Cardiology. Consult date: 08/14/23 HPI: Kenyetta Chappell is a 82 year old female admitted to the hospital through the emergency room. Patient lives alone and did not answer her daughter phone call yesterday at 4:30 a.m. but this morning did not answer the phone call again when her daughter went to her house and found her sitting on the floor unable to get up sleep with slurred speech and drooping of the left side of the face. Patient had been on Eliquis for atrial fibrillation which was stopped in June of 2023 for Watchman procedure in the next few weeks. Patient has been taking levothyroxine, losartan, omeprazole, will cycle of ear, and vitamin B12. She has multiple allergies as documented. She carries the diagnosis of coronary artery disease of nonobstructive nature along with hypertension and history of DVT of the lower extremities and pericarditis in June of 2021 addition to the history of sick sinus syndrome. She has undergone cardiac catheterization in 2009, fusion of the lumbar spine and total knee replacement, bilaterally, she has had the initial pacemaker placed the generator exchange in June 2021 she is a never smoker never alcohol intaker but does take the pain medication, initial evaluation revealed her to have normal vital signs except the blood pressure of 174/83 CBC was normal chest x-ray had a large hiatal hernia with cardiomegaly and right-sided dual lead pacemaker, bilateral chronic rotator cuff atrophy was noted in addition CT of the head absent and hypoplastic left P1 segment, CT of the neck with scattered vascular calcification and EKG with atrial fibrillation recently she has had past hemopericardium treated with Erika cardio sentences at an outside hospital when she was advised to stop aspirin and Eliquis was subsequently did not resume and ended up in the hospital before she could see Dr. john for atrial appendage occlusion device. [facility] Past Medical History Medical History Anemia Arthritis Atrial fibrillation Barretts esophagus (~2014) Chronic back pain Coronary artery disease Nonobstructive. Follows with Dr. Maxx Joya DVT (deep venous thrombosis) (~2008) Essential hypertension GERD (gastroesophageal reflux disease) History of DVT of lower extremity Narcotic dependency, continuous Pericarditis (06/2021) Sick sinus syndrome Spinal stenosis Surgical History Surgical History Fusion of lumbar spine (~1995) History of appendectomy History of cardiac catheterization (~2009) With minimal luminal abnormalities History of cholecystectomy History of colon resection sigmoidectomy 2008 diverticulitis laparoscopic right colectomy 2015 cecal polyp History of hernia repair Open repair of left flank incisional hernia and laparoscopic repair of ventral incisional hernia both with mesh reinforcement in 2013. History of incisional hernia repair laparoscopic repair with physio mesh 2013 History of tonsillectomy and adenoidectomy History of total hysterectomy with bilateral salpingo-oophorectomy (BSO) (~1973) History of total knee replacement Right in 1999, left and 2007 Dr. Pelayo in [place] Pacemaker (~04/2010) Due to sick sinus syndrome initial pacemaker placement was complicated by postoperative pneumothorax. Patient had generator exchange June 2021 Family History Family History
--- NOTE | 2023-08-14 16:07 | PM.IMPN ---
Progress Note: A&P Assessment and Plan (1) Acute cerebrovascular accident (CVA): Code(s): I63.9 - Cerebral infarction, unspecified Status: Acute Assessment and Plan: Patient presents with stroke like symptoms with ew deficits of L facial droop, RUE/RLE weakness, and slurred speech CT Head: cerebral atherosclerosis, chronic small vessel ischemic changes but no acute intracranial finding. CTA of Head/Neck: No acute intracranial abnormality and unremarkable head CTA. No stenosis proximal bilateral ICA. Echo showing EF 60-65% wiht LV diastolic function and mild valvular disease except mild-mod TR, mild pHTN and elevated RAP. ASA started. Neurology consulted and appreciate thier input Statin on hold givne the mild elevation of the CK. PT/OT started ST evaluated the patient and felt the patient did not need any further evaluation for dysphagia but recommended ST for communication which was ordered. Has AFib chronically and remains uncovered. Consult Cardiology to discuss the risks/benefits of resuming anticoagulation. Repeat CT brain again showing no acute findings. Brain stem CVA? Contineu PT/OT/ST (2) Somnolence: Code(s): R40.0 - Somnolence Status: Acute Assessment and Plan: Secondary to acute CVA. CXR could not exclude mild infiltrate or atelectasis of the left lower lobe so consider PNA. Abx were not started on admission WBC 14 but normal now so probably stress response. TSH 0.34 with nomral FT4. B12/folate normal. Mental status better and now oriented. Avoid sedating medications. (3) Elevated CPK: Code(s): R74.8 - Abnormal levels of other serum enzymes Status: Acute Assessment and Plan: Patient with mildly elevated CK. Related to being immobile overnight. CK 550 and now trending down but still mildly elevated. Follow. Start Lipitor in am (4) Subcutaneous abscess: Qualifiers: Site of cutaneous abscess: trunk Site of cutaneous abscess of trunk: abdominal wall Qualified Code(s): L02.211 - Cutaneous abscess of abdominal wall Code(s): L02.91 - Cutaneous abscess, unspecified Status: Acute Assessment and Plan: Right lower abd abscess that was I&D in the clinic on 07/24. There was scant drainage from the wound. Not felt to be infected Wound Care consulted and apprciate their input. (5) Atrial fibrillation: Code(s): I48.91 - Unspecified atrial fibrillation Status: Acute Assessment and Plan: Patient with chronic AFib. She was hospitalized in June for a hemorrhagic pericarditis per family and anticaogulation was stopped. Cardiology was planning to perform a watchman and was waiting for the inflammation to subside. This was scheduled for 08/22 On atenolol at home but started on metoprolol. Dose advanced today HR better controlled Cards consulted. Continue tele (6) Narcotic dependence: Code(s): F11.20 - Opioid dependence, uncomplicated Status: Acute Assessment and Plan: Patient takes Kramer for pain chronically. Cyrus hold this for now but be watchful for s/sx of withdrawal. Tylenol for pain Plan Diet: heart healthy GI Prophylaxis: Pantoprazole DVT Prophylaxis: SCDs, Lovenox Code Status: DNR/DNI Subjective Date/time seen: 08/14/23 16:07 Interval history: 82yo female with AFib not on anticoagulation, HTN and CAD here for focal weakness. Patient more oriented. She slept poorly lat night. She denies CP or SOB. No n/v. Up walking with therapy. She still has the double vision. Exam Narrative: AF 96.0 121/80 81 14 98% ra Gen - NARD Chest - CTA bilaterally. nml RR CV -irregularly irregular. Tele showing AFib with HR better controlled. PVCs Abd - Soft, NT/ND, Positive BS Ext - No pedal edema Neuro - Left facial droop. Limb strength improved and more symmetric. She is alert and oriented x4. Speech is clearer. Left ptosis. nml ocularis strength. pupils equal
[2023-08-14] MEDS: ACETAMINOPHEN 325 MG TABLET 650 MG PO (21:46)
[2023-08-15] VITALS (12 sets, daily range): BP systolic 133–159; BP diastolic 66–93; PULSE 60–115; RESP 16–24; TEMP 35.7–36.6; O2SAT 96–98
[2023-08-15] MEDS: LEVOTHYROXINE SODIUM 50 MCG TABLET PO (06:11)
--- NOTE | 2023-08-15 11:55 | WPDNEUROPN ---
Subjective Date/time seen: 08/15/23 11:55 Interval history: 82 years old with history of atrial fibrillation and history of having had a stroke while waiting for the Watchman procedure, her CTA is negative, clinically has visual field cut and at present receiving apixaban treatment will be continued as such all the pros and cons were discussed with her again Objective Data Vital Signs Vital Signs: Vital Signs - 24 hr 08/14/23 12:00 08/14/23 12:00 08/14/23 14:00 Temperature 36.1 C L 35.5 C L Pulse Rate 89 74 81 Respiratory Rate 14 14 Blood Pressure 131/70 121/80 Pulse Oximetry 98 98 08/14/23 16:00 08/14/23 20:44 08/14/23 20:30 Temperature 36.6 C 36.3 C L Pulse Rate 79 79 106 H Respiratory Rate 16 18 Blood Pressure 137/43 L 151/93 H Pulse Oximetry 99 95 08/14/23 20:00 08/15/23 00:00 08/15/23 01:32 Temperature 36.4 C L Pulse Rate 98 75 86 Respiratory Rate 16 Blood Pressure 133/79 Pulse Oximetry 97 08/15/23 04:00 08/15/23 04:15 08/15/23 08:00 Temperature 35.7 C L 36.6 C Pulse Rate 79 84 93 Respiratory Rate 24 H 19 Blood Pressure 137/71 148/66 H Pulse Oximetry 96 96 Intake/Output Intake/Output: Intake & Output 08/12/23 08/13/23 08/14/23 08/15/23 23:59 23:59 23:59 23:59 Intake Total 1700 1150 290 Output Total 1500 775 250 Balance 200 375 40 Meds/Results Medications: Active Medications Generic Name Dose Route Start Last Admin Trade Name Freq PRN Reason Stop Dose Admin Acetaminophen 650 mg 08/13/23 19:33 08/14/23 21:46 Acetaminophen 325 Mg Tablet PO 650 mg Q6H PRN Administration Mild Pain (1-3) or Fever Aspirin 81 mg 08/13/23 08:00 08/14/23 09:06 Aspirin 81 Mg Chewable Tablet PO 81 mg DAILY@0800 SUZAN Administration Atorvastatin Calcium 40 mg 08/15/23 09:00 Atorvastatin 40 Mg Tablet PO DAILY [facility] Enoxaparin Sodium 40 mg 08/13/23 09:00 08/14/23 09:06 Enoxaparin 40 Mg/0.4 Ml Syringe SUB-Q 40 mg DAILY SUZAN Administration Levothyroxine Sodium 50 mcg 08/15/23 06:30 08/15/23 06:11 Levothyroxine Sodium 50 Mcg Tablet PO 50 mcg DAILY@0630 SUZAN Administration Metoprolol Tartrate 5 mg 08/12/23 14:06 Metoprolol Tartrate Inj 5 Mg/5 Ml Vial IV PUSH Q5M PRN Atrial Fibrilliation Metoprolol Tartrate 25 mg 08/14/23 09:05 08/14/23 20:44 Metoprolol Tartrate 25 Mg Tablet PO 25 mg Q12HR SUZAN Administration Pantoprazole Sodium 40 mg 08/13/23 09:00 08/14/23 09:06 Pantoprazole Sodium Iv 40 Mg Vial IV PUSH 40 mg QAM SUZAN Administration Perflutren Lipid Microsphere 0 ml 08/12/23 13:14 Perflutren Lipid Microspheres 1.5 Ml Vial Diluted To 10 Ml Total Volume IV PUSH 08/15/23 13:14 ONCE PRN adequate visualization Protocol Radiology Results: ITS Impressions Chest X-Ray 08/12/23 09:20 IMPRESSION: Cannot exclude mild infiltrate or atelectasis, left lower lobe Cardiac silhouette enlargement which may be due to cardiomegaly and/or pericardial effusion Large hiatal hernia Aortic atherosclerosis Right-sided dual-lead pacemaker Postoperative change of lumbar spine Bilateral chronic rotator cuff atrophy Osteopenia Head/Neck CTA 08/12/23 21:31 IMPRESSION: 1. No acute intracranial abnormality. Unremarkable head CTA. 2. 0% stenosis of the proximal right internal carotid artery relative to normal distal artery lumen diameter (NASCET criteria). 3. 0% stenosis of the proximal left internal carotid artery relative to normal distal artery lumen diameter. Head CT 08/14/23 10:06 IMPRESSION: 1. 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 2. Extensive nonspecific cerebral white matter disease, which likely represents chronic small vessel ischemic disease. Elbow X-Ray 08/15/23 09:41 Impression: Unremarkable radiographs. Shoulder X-Ray 08/15/23 09:42 Impression: Possible high riding humeral head. Consider un
[2023-08-15] MEDS: METOPROLOL TARTRATE 25 MG TABLET PO (12:09)
[2023-08-15] MEDS: ASPIRIN 81 MG CHEWABLE TABLET PO (12:09)
[2023-08-15] MEDS: PANTOPRAZOLE SODIUM IV 40 MG VIAL IV PUSH (12:10)
[2023-08-15] MEDS: ENOXAPARIN 40 MG/0.4 ML SYRINGE SUB-Q (12:10)
[2023-08-15] MEDS: ATORVASTATIN 40 MG TABLET PO (12:10)
--- NOTE | 2023-08-15 12:58 | PM.PNCARD ---
Progress Note: A&P Assessment and Plan (1) Atrial fibrillation: Code(s): I48.91 - Unspecified atrial fibrillation Status: Acute Assessment and Plan: History of paroxysmal atrial fibrillation previously lower burden managed with rate control and anticoagulation. Recently taken off anticoagulation following hemopericardium requiring pericardiocentesis. Pt had been referred for LAAO closure. Unfortunately presented with with stroke symptoms. Interestingly head/neck CTA does not show any acute process. Old infarcts noted. Neurology okay with anticoagulation being restarted at our discretion. Resume apixaban 5mg p.o. b.i.d.. Discontinue DVT dosing enoxaparin. Continue metoprolol but increase to 50 mg twice daily as heart rate marginally controlled with intermittent RVR. Up titrate doses BP and heart rate permit. Patient asymptomatic in this regard. As patient already received subcutaneous enoxaparin DVT dosing this afternoon the best initiate systemic anticoagulation starting tomorrow morning given presumed history of acute hemopericardium the recent past. (2) Pericardial effusion: Code(s): I31.3 - Pericardial effusion (noninflammatory) Status: Acute Assessment and Plan: Recent presumed acute hemopericardium with associated severe hypertension fluid responsive requiring pericardiocentesis with recommendations to stop aspirin and Eliquis without resuming at outside hospital by Cardiology. Echo performed here did not show significant pericardial effusion or reaccumulation of hemorrhagic pericardial effusion anticoagulation. As above, given the circumstances unfortunately little choice but to resume systemic anticoagulation number to reduce risk stroke. Patient is aware and was previously discussed risk for accumulation of hemopericardium contract assistant will need to be monitored. Repeat 2D echocardiogram the office in 2-4 weeks as an outpatient. Monitor hemodynamic status closely. (3) Acute cerebrovascular accident (CVA): Code(s): I63.9 - Cerebral infarction, unspecified Status: Acute Assessment and Plan: Repeat CT without acute process other than old infarct. Unable to obtain MRI due to pacemaker. As above, systemic anticoagulation with Eliquis 5 mg twice daily. Remains on aspirin 81 mg daily. CK mildly elevated as she was down for several hours but improved steadily. Continue Atorvastatin 40 mg at bedtime given further improvement CK. Further recommendations per Neurology. Patient has already been referred for left atrial appendage occlusion device which we will continue to pursue as an outpatient. (4) Pacemaker: Onset Date: ~04/2010 Code(s): Z95.0 - Presence of cardiac pacemaker Status: Acute Assessment and Plan: Stable, normal device function. Check device for more recent AFib burden. Minimal burden on check in February<0.1% with documented sinus rhythm recently yet she was unfortunately in atrial fibrillation at presentation. Subjective Date/time seen: Date of service: 08/15/23 12:58 Follow-up for stroke, atrial fibrillation Interval history: He is feeling a little better. Because complained is blurred vision with her eye. Still notes right arm weak denies chest pain, shortness of breath or palpitation. Breathing stable. She is eating okay without choking but her appetite is not her age. No new issues overnight. She remains in atrial fibrillation marginally controlled on telemetry. Review of Systems Review of Systems: All systems reviewed & are unremarkable except as noted in HPI and below Exam Const: General: comfortable, no acute distress, alert and awake Orientation/consciousness: patient oriented x3 HENMT: Head: normal to inspection Eyes: General: appearance normal, both eyes and all related structures (Left eye covered) Pupils: Equal, round and reactive pupils present Neck: Neck: normal visual inspection, supple and no JVD Carotids: normal
--- NOTE | 2023-08-15 16:21 | PM.IMPN ---
Progress Note: A&P Assessment and Plan (1) Acute cerebrovascular accident (CVA): Code(s): I63.9 - Cerebral infarction, unspecified Status: Acute Assessment and Plan: Patient presents with stroke like symptoms with ew deficits of L facial droop, RUE/RLE weakness, and slurred speech CT Head: cerebral atherosclerosis, chronic small vessel ischemic changes but no acute intracranial finding. CTA of Head/Neck: No acute intracranial abnormality and unremarkable head CTA. No stenosis proximal bilateral ICA. Echo showing EF 60-65% wiht LV diastolic function and mild valvular disease except mild-mod TR, mild pHTN and elevated RAP. ASA started. Neurology consulted and appreciate thier input Statin on hold givne the mild elevation of the CK. PT/OT started ST evaluated the patient and felt the patient did not need any further evaluation for dysphagia but recommended ST for communication which was ordered. Has AFib chronically and remains uncovered. Consult Cardiology to discuss the risks/benefits of resuming anticoagulation. Repeat CT brain again showing no acute findings. Brain stem CVA? Contineu PT/OT/ST 08/15: d/c pending ins auth (2) Somnolence: Code(s): R40.0 - Somnolence Status: Acute Assessment and Plan: Secondary to acute CVA. CXR could not exclude mild infiltrate or atelectasis of the left lower lobe so consider PNA. Abx were not started on admission WBC 14 but normal now so probably stress response. TSH 0.34 with nomral FT4. B12/folate normal. Mental status better and now oriented. Avoid sedating medications. 08/15: resolved (3) Elevated CPK: Code(s): R74.8 - Abnormal levels of other serum enzymes Status: Acute Assessment and Plan: Patient with mildly elevated CK. Related to being immobile overnight. CK 550 and now trending down but still mildly elevated. Follow. Start Lipitor. recheck CK in am (4) Subcutaneous abscess: Qualifiers: Site of cutaneous abscess: trunk Site of cutaneous abscess of trunk: abdominal wall Qualified Code(s): L02.211 - Cutaneous abscess of abdominal wall Code(s): L02.91 - Cutaneous abscess, unspecified Status: Acute Assessment and Plan: Right lower abd abscess that was I&D in the clinic on 07/24. There was scant drainage from the wound. Not felt to be infected Wound Care consulted and apprciate their input. 08/15: culture showed b. fragilis, started on flagyl (5) Atrial fibrillation: Code(s): I48.91 - Unspecified atrial fibrillation Status: Acute Assessment and Plan: Patient with chronic AFib. She was hospitalized in June for a hemorrhagic pericarditis per family and anticaogulation was stopped. Cardiology was planning to perform a watchman and was waiting for the inflammation to subside. This was scheduled for 08/22 On atenolol at home but started on metoprolol. Dose advanced today HR better controlled Cards consulted. Continue tele (6) Narcotic dependence: Code(s): F11.20 - Opioid dependence, uncomplicated Status: Acute Assessment and Plan: Patient takes [place] for pain chronically. Cyrus hold this for now but be watchful for s/sx of withdrawal. Tylenol for pain Plan Diet: heart healthy GI Prophylaxis: Pantoprazole DVT Prophylaxis: SCDs, Lovenox Code Status: DNR/DNI Subjective Date/time seen: 08/15/23 16:21 Interval history: 82yo female with AFib not on anticoagulation, HTN and CAD here for focal weakness. No overnight events noted. No chest pain or shortness of breath. No nausea, vomiting or diarrhea. No fevers or chills. Continues to have double vision. Unchanged. Review of Systems Review of Systems: 12 point review of systems was assessed and was negative except as noted in the HPI Exam Narrative: General: No acute distress, alert and oriented per baseline HEENT: Atraumatic, normocephalic,
[2023-08-15] MEDS: METOPROLOL TARTRATE 50 MG TAB PO (20:37)
[2023-08-16] VITALS (12 sets, daily range): BP systolic 101–145; BP diastolic 64–81; PULSE 67–91; RESP 17–20; TEMP 36–36.6; O2SAT 94–99
[2023-08-16] MEDS: ACETAMINOPHEN 325 MG TABLET 650 MG PO (00:02)
[2023-08-16] MEDS: LEVOTHYROXINE SODIUM 50 MCG TABLET PO (05:01)
[2023-08-16 06:34] LABS: Hematocrit 36.6 % (37.0-47.0); Hemoglobin 10.9 g/dL (12.0-15.0); Mean Corpuscular HGB Conc 29.8 g/dl (32-36); Mean Corpuscular Hemoglobin 25.9 pg (26-34); Mean Corpuscular Volume 86.9 fl (80-100); Mean Platelet Volume 8.8 fl (7.4-10.4); Platelet Count Result 357 k/mm3 (150-375); Red Blood Count 4.21 M/mm3 (4.2-5.4); Red Cell Distribution Width 17.2 % (11.5-14.5); White Blood Count 6.9 K/mm3 (4.5-10.0)
[2023-08-16 06:47] LABS: Anion Gap 6 mmol/L (8-16); Blood Urea Nitrogen 14 mg/dL (7-17); Carbon Dioxide 23 mmol/L (22-30); Chloride 109 mmol/L (98-107); Estimated CRCL calculation 60 ml/min; Estimated Glomerular Filt Rate > 60; Glucose 99 mg/dL (65-110); Potassium 3.6 mmol/L (3.4-5.0); Sodium 138 mmol/L (137-145)
[2023-08-16] MEDS: PANTOPRAZOLE SODIUM IV 40 MG VIAL IV PUSH (09:26)
[2023-08-16] MEDS: ASPIRIN 81 MG CHEWABLE TABLET PO (09:32)
[2023-08-16] MEDS: ATORVASTATIN 40 MG TABLET PO (09:33)
[2023-08-16] MEDS: APIXABAN 5 MG TABLET PO ×2 (09:33→20:44)
[2023-08-16] MEDS: METOPROLOL TARTRATE 50 MG TAB PO ×2 (09:33→20:44)
[2023-08-16] MEDS: HYDROcodone/acetaminophen (*CRX) 5-325 MG TABLET 1 TAB (11:35)
--- NOTE | 2023-08-16 12:01 | PM.PNCARD ---
Progress Note: A&P Assessment and Plan (1) Atrial fibrillation: Code(s): I48.91 - Unspecified atrial fibrillation Status: Acute Assessment and Plan: History of paroxysmal atrial fibrillation previously lower burden managed with rate control and anticoagulation. Recently taken off anticoagulation following hemopericardium requiring pericardiocentesis. Pt had been referred for LAAO closure. Unfortunately presented with with stroke symptoms. Interestingly head/neck CTA does not show any acute process. Old infarcts noted. Neurology okay with anticoagulation being restarted at our discretion. Resume apixaban 5mg p.o. b.i.d.. Discontinue DVT dosing enoxaparin. Continue Metoprolol 50 mg twice daily for AFib control. Monitor heart rate and BP closely. Up titrate doses BP and heart rate permit. Patient asymptomatic in this regard. Monitor for hypotension. Eliquis 5 mg twice daily resumed. Enoxaparin discontinued. Outpatient repeat echocardiogram 2 weeks to reassess pericardium. If pt develops chest pain worsening shortness of breath or unexplained or worsening hypotension repeat echocardiogram to assess pericardium. Electrolytes stable. (2) Anemia: Code(s): D64.9 - Anemia, unspecified Status: Acute Assessment and Plan: Slow decline in H&H since admission. Initially hemoglobin 12.8, currently Hemoglobin 10.9 mildly anemic. platelets stable. Follow H&H. If further significant decline and or relative hypotension repeat 2D echo cardiac to assess pericardium. (3) Acute cerebrovascular accident (CVA): Code(s): I63.9 - Cerebral infarction, unspecified Status: Acute Assessment and Plan: Repeat CT without acute process other than old infarct. Unable to obtain MRI due to pacemaker. As above, systemic anticoagulation with Eliquis 5 mg twice daily. Remains on aspirin 81 mg daily. CK mildly elevated as she was down for several hours but improved steadily. Continue Atorvastatin 40 mg at bedtime given further improvement CK. Further recommendations per Neurology. Patient has already been referred for left atrial appendage occlusion device which we will continue to pursue as an outpatient. (4) Pericardial effusion: Code(s): I31.3 - Pericardial effusion (noninflammatory) Status: Acute Assessment and Plan: Recent presumed acute hemopericardium with associated severe hypertension fluid responsive requiring pericardiocentesis with recommendations to stop aspirin and Eliquis without resuming at outside hospital by Cardiology. Echo performed here did not show significant pericardial effusion or reaccumulation of hemorrhagic pericardial effusion anticoagulation. As above, given the circumstances unfortunately little choice but to resume systemic anticoagulation number to reduce risk stroke. Patient is aware and was previously discussed risk for accumulation of hemopericardium night assistant will need to be monitored. Repeat 2D echocardiogram the office in 2 weeks as an outpatient. Monitor hemodynamic status closely. As above. (5) Pacemaker: Onset Date: ~04/2010 Code(s): Z95.0 - Presence of cardiac pacemaker Status: Acute Assessment and Plan: Stable, normal device function. Check device for more recent AFib burden. Minimal burden on check in February<0.1% with documented sinus rhythm recently yet she was unfortunately in atrial fibrillation at presentation. Subjective Date/time seen: date of service: 08/16/23 12:01 Interval history: No significant issues overnight. Remains in atrial fibrillation with intermittent RVR. She denies chest pain or shortness of breath. Patient states she is uncomfortable due to chronic pain and mostly due to restless legs. patient had complained to nursing about discomfort in her right arm worse with movement. heart rate fastest with position change or activity. Review of Systems Review of Systems: All systems review
--- NOTE | 2023-08-16 18:16 | PM.DS ---
DS: Admitting Diagnosis Discharge Date 08/17/23 DS: Summary Time Spent with Patient Time attestation: Total time spent providing and/or coordinating discharge services: DS: Data Data Completed and Pending Labs on day of discharge: Labs from last 24 hours 08/16/23 06:09 WBC 6.9 RBC 4.21 Hgb 10.9 L Hct 36.6 L MCV 86.9 MCH 25.9 L MCHC 29.8 L RDW 17.2 H Plt Count 357 MPV 8.8 Sodium 138 Potassium 3.6 Chloride 109 H Carbon Dioxide 23 Anion Gap 6 L BUN 14 Creatinine 0.70 Estim Creat Clear Calc 60 Estimated GFR > 60 Glucose 99 Calcium 9.0 Discharge Plan Discharge Attending physician on discharge: Kayley Ballard Consulting providers: Reyna Hale; Silvina Nix Discharging Clinician: Kayley Ballard Patient Disposition: [facility] Activity: as tolerated Diet: as tolerated Patient Instructions: Apixaban (By mouth), Stroke (DC) Follow-up/Referrals: Najma Porter MD [Primary Care Provider] - Aamir Luna MD [Physician] - Keep Reg. Scheduled Appt. Reyna Hale MD [Physician] - Discharge Medications: New atorvastatin 40 mg Tablet 40 mg PO DAILY 30 Days Qty: 30 0RF metoprolol tartrate 50 mg Tablet 50 mg PO Q12HR 30 Days Qty: 60 0RF aspirin [Children's Aspirin] 81 mg Tablet,Chewable 81 mg PO DAILY@0800 30 Days Qty: 30 0RF Eliquis 5 mg Tablet 5 mg PO Q12HR 30 Days Qty: 60 0RF Continued levothyroxine 50 mcg capsule 50 mcg PO DAILY omeprazole 40 mg capsule,delayed release(DR/EC) 40 mg PO DAILY curcumin-phosphatidylcholine 500 mg capsule 500 mg PO DAILY Intrinsi [id number] 500-20-800 mcg-mg-mcg tablet 1 tablet PO DAILY magnesium 250 mg tablet 250 mg PO DAILY cyanocobalamin (vitamin B-12) [Vitamin B-12] 500 mcg lozenge 500 mcg PO DAILY hydrocodone-acetaminophen 10-325 mg tablet 1 tablet PO DIRECTED PRN (Reason: Pain) Rx Instructions: 1-2 tablets po Q4-6H for pain for a max of 4 tablets per day cholecalciferol (vitamin D3) 125 mcg (5,000 unit) Tablet 5,000 unit PO DAILY Discontinued losartan 50 mg tablet 50 mg PO DAILY atenolol 25 mg tablet 25 mg PO DAILY Date of admission: 08/12/23 10:34 Primary Care Provider: Najma Porter Admitting Provider: Ko Johnson Attending physician on admission: Ko Johnson Condition: Guarded Prognosis
--- NOTE | 2023-08-16 18:45 | PC.NURSE ---
At 1830, this RN noted that pt had discharge in. Discharge planning shows insurance auth still pending. Notified .
[2023-08-16] MEDS: HYDROcodone/acetaminophen (*CRX) 10-325 MG TABLET 1 TAB PO (20:43)
[2023-08-17] VITALS (10 sets, daily range): BP systolic 115–144; BP diastolic 56–77; PULSE 61–89; RESP 16–20; TEMP 35.9–36.9; O2SAT 95–100
[2023-08-17] MEDS: LEVOTHYROXINE SODIUM 50 MCG TABLET PO (05:50)
[2023-08-17] MEDS: ATORVASTATIN 40 MG TABLET PO (08:54)
[2023-08-17] MEDS: APIXABAN 5 MG TABLET PO ×2 (08:54→21:16)
[2023-08-17] MEDS: ACETAMINOPHEN 325 MG TABLET 650 MG PO (08:54)
[2023-08-17] MEDS: METOPROLOL TARTRATE 50 MG TAB PO ×2 (08:54→21:17)
[2023-08-17] MEDS: ASPIRIN 81 MG CHEWABLE TABLET PO (08:54)
[2023-08-17] MEDS: PANTOPRAZOLE SODIUM IV 40 MG VIAL IV PUSH (08:58)
--- NOTE | 2023-08-17 09:33 | PM.IMPN ---
Progress Note: A&P Assessment and Plan (1) Acute cerebrovascular accident (CVA): Code(s): I63.9 - Cerebral infarction, unspecified Status: Acute Assessment and Plan: Patient presents with stroke like symptoms with ew deficits of L facial droop, RUE/RLE weakness, and slurred speech CT Head: cerebral atherosclerosis, chronic small vessel ischemic changes but no acute intracranial finding. CTA of Head/Neck: No acute intracranial abnormality and unremarkable head CTA. No stenosis proximal bilateral ICA. Echo showing EF 60-65% wiht LV diastolic function and mild valvular disease except mild-mod TR, mild pHTN and elevated RAP. ASA started. Neurology consulted and appreciate thier input Statin on hold givne the mild elevation of the CK. PT/OT started ST evaluated the patient and felt the patient did not need any further evaluation for dysphagia but recommended ST for communication which was ordered. Has AFib chronically and remains uncovered. Consult Cardiology to discuss the risks/benefits of resuming anticoagulation. Repeat CT brain again showing no acute findings. Brain stem CVA? Contineu PT/OT/ST 08/15: d/c pending ins auth 08/16: same (2) Somnolence: Code(s): R40.0 - Somnolence Status: Acute Assessment and Plan: Secondary to acute CVA. CXR could not exclude mild infiltrate or atelectasis of the left lower lobe so consider PNA. Abx were not started on admission WBC 14 but normal now so probably stress response. TSH 0.34 with nomral FT4. B12/folate normal. Mental status better and now oriented. Avoid sedating medications. 08/15: resolved (3) Elevated CPK: Code(s): R74.8 - Abnormal levels of other serum enzymes Status: Acute Assessment and Plan: Patient with mildly elevated CK. Related to being immobile overnight. CK 550 and now trending down but still mildly elevated. Follow. Start Lipitor. (4) Subcutaneous abscess: Qualifiers: Site of cutaneous abscess: trunk Site of cutaneous abscess of trunk: abdominal wall Qualified Code(s): L02.211 - Cutaneous abscess of abdominal wall Code(s): L02.91 - Cutaneous abscess, unspecified Status: Acute Assessment and Plan: Right lower abd abscess that was I&D in the clinic on 07/24. There was scant drainage from the wound. Not felt to be infected Wound Care consulted and apprciate their input. 08/15: culture showed b. fragilis, started on flagyl (5) Atrial fibrillation: Code(s): I48.91 - Unspecified atrial fibrillation Status: Acute Assessment and Plan: Patient with chronic AFib. She was hospitalized in June for a hemorrhagic pericarditis per family and anticaogulation was stopped. Cardiology was planning to perform a watchman and was waiting for the inflammation to subside. This was scheduled for 08/22 On atenolol at home but started on metoprolol. Dose advanced today HR better controlled Cards consulted. Continue tele (6) Narcotic dependence: Code(s): F11.20 - Opioid dependence, uncomplicated Status: Acute Assessment and Plan: Patient takes [place] for pain chronically. Cyrus hold this for now but be watchful for s/sx of withdrawal. Tylenol for pain Plan Diet: heart healthy GI Prophylaxis: Pantoprazole DVT Prophylaxis: SCDs, Lovenox Code Status: DNR/DNI Subjective Date/time seen: 08/16/23 09:33 Interval history: 82yo female with AFib not on anticoagulation, HTN and CAD here for focal weakness. No overnight events noted. No chest pain or shortness of breath. No nausea, vomiting or diarrhea. No fevers or chills. Continues to have double vision. Unchanged. Review of Systems Review of Systems: 12 point review of systems was assessed and was negative except as noted in the HPI Exam Narrative: General: No acute distress, alert and oriented per baseline HEENT: Atraumatic, normocephalic, mucou
--- NOTE | 2023-08-17 09:51 | PCNFU ---
Nutrition Follow-Up Complete: Suboptimal po intake related to reduced appetite as evidenced by pt report and noted unintentional weight loss PO intake greater than 50% of meal- Progressing. Continue with same goal Goal: Pt current nutrition is Heart healthy diet. Nutritional ice cream once per day for 290 kcal and 9 g protein each . Nutrition recommendation: Continue with nutrition care plan and orders. Agree with orders Last recorded weight is 85.5 kg. Bowel Motility: +1 06/16/24 Labs Reviewed: Hgb 10.9, Hct 36.6 Meds Noted: Protonix, lovenox Skin: WNL Additional Notes: Intakes improved to 40-75% meals. Discharge to SNF, awaiting auth. Continue with current orders. Monitor intake, wt, labs. Follow up in 5 days.
[2023-08-17] MEDS: HYDROcodone/acetaminophen (*CRX) 10-325 MG TABLET 1 TAB PO (21:15)
[2023-08-18] VITALS (10 sets, daily range): BP systolic 109–137; BP diastolic 47–65; PULSE 65–91; RESP 14–21; TEMP 36.1–36.6; O2SAT 95–100
[2023-08-18] MEDS: LEVOTHYROXINE SODIUM 50 MCG TABLET PO (05:34)
[2023-08-18] MEDS: METOPROLOL TARTRATE 50 MG TAB PO ×2 (08:38→20:39)
[2023-08-18] MEDS: ATORVASTATIN 40 MG TABLET PO (08:38)
[2023-08-18] MEDS: ASPIRIN 81 MG CHEWABLE TABLET PO (08:38)
[2023-08-18] MEDS: APIXABAN 5 MG TABLET PO ×2 (08:38→20:39)
[2023-08-18] MEDS: ACETAMINOPHEN 325 MG TABLET 650 MG PO ×2 (08:38→15:48)
--- NOTE | 2023-08-18 14:59 | PM.IMPN ---
Progress Note: A&P Assessment and Plan (1) Acute cerebrovascular accident (CVA): Code(s): I63.9 - Cerebral infarction, unspecified Status: Acute Assessment and Plan: Patient presents with stroke like symptoms with ew deficits of L facial droop, RUE/RLE weakness, and slurred speech CT Head: cerebral atherosclerosis, chronic small vessel ischemic changes but no acute intracranial finding. CTA of Head/Neck: No acute intracranial abnormality and unremarkable head CTA. No stenosis proximal bilateral ICA. Echo showing EF 60-65% wiht LV diastolic function and mild valvular disease except mild-mod TR, mild pHTN and elevated RAP. ASA started. Neurology consulted and appreciate thier input Statin on hold givne the mild elevation of the CK. PT/OT started ST evaluated the patient and felt the patient did not need any further evaluation for dysphagia but recommended ST for communication which was ordered. Has AFib chronically and remains uncovered. Consult Cardiology to discuss the risks/benefits of resuming anticoagulation. Repeat CT brain again showing no acute findings. Brain stem CVA? Contineu PT/OT/ST 08/15: d/c pending ins auth 08/16: same 08/17: still waiting on ins (2) Somnolence: Code(s): R40.0 - Somnolence Status: Acute Assessment and Plan: Secondary to acute CVA. CXR could not exclude mild infiltrate or atelectasis of the left lower lobe so consider PNA. Abx were not started on admission WBC 14 but normal now so probably stress response. TSH 0.34 with nomral FT4. B12/folate normal. Mental status better and now oriented. Avoid sedating medications. 08/15: resolved (3) Elevated CPK: Code(s): R74.8 - Abnormal levels of other serum enzymes Status: Acute Assessment and Plan: Patient with mildly elevated CK. Related to being immobile overnight. CK 550 and now trending down but still mildly elevated. Follow. Start Lipitor. (4) Subcutaneous abscess: Qualifiers: Site of cutaneous abscess: trunk Site of cutaneous abscess of trunk: abdominal wall Qualified Code(s): L02.211 - Cutaneous abscess of abdominal wall Code(s): L02.91 - Cutaneous abscess, unspecified Status: Acute Assessment and Plan: Right lower abd abscess that was I&D in the clinic on 07/24. There was scant drainage from the wound. Not felt to be infected Wound Care consulted and appreciate their input. (5) Atrial fibrillation: Code(s): I48.91 - Unspecified atrial fibrillation Status: Acute Assessment and Plan: Patient with chronic AFib. She was hospitalized in June for a hemorrhagic pericarditis per family and anticaogulation was stopped. Cardiology was planning to perform a watchman and was waiting for the inflammation to subside. This was scheduled for 08/22 On atenolol at home but started on metoprolol. Dose advanced today HR better controlled Cards consulted. Continue tele (6) Narcotic dependence: Code(s): F11.20 - Opioid dependence, uncomplicated Status: Acute Assessment and Plan: Patient takes [place] for pain chronically. Cyrus hold this for now but be watchful for s/sx of withdrawal. Tylenol for pain Plan Diet: heart healthy GI Prophylaxis: Pantoprazole DVT Prophylaxis: SCDs, Lovenox Code Status: DNR/DNI Subjective Date/time seen: 08/18/23 14:59 Interval history: 82yo female with AFib not on anticoagulation, HTN and CAD here for focal weakness. No overnight events noted. No chest pain or shortness of breath. No nausea, vomiting or diarrhea. No fevers or chills. Continues to have double vision. Unchanged. Review of Systems Review of Systems: 12 point review of systems was assessed and was negative except as noted in the HPI Exam Narrative: General: No acute distress, alert and oriented per baseline HEENT: Atraumatic, normocephalic, mucous membranes moist CV: Ir
[2023-08-18] MEDS: HYDROcodone/acetaminophen (*CRX) 10-325 MG TABLET 1 TAB PO (20:39)
[2023-08-19] MEDS: LEVOTHYROXINE SODIUM 50 MCG TABLET PO (05:21)
[2023-08-19 06:10] VITALS: BP 132/71; PULSE 67; RESP 18; TEMP 35.5; O2SAT 98
[2023-08-19] MEDS: ACETAMINOPHEN 325 MG TABLET 650 MG PO ×2 (09:14→19:07)
[2023-08-19 09:15] VITALS: PULSE 68
[2023-08-19] MEDS: ASPIRIN 81 MG CHEWABLE TABLET PO (09:15)
[2023-08-19] MEDS: APIXABAN 5 MG TABLET PO ×2 (09:15→20:31)
[2023-08-19] MEDS: ATORVASTATIN 40 MG TABLET PO (09:15)
[2023-08-19] MEDS: METOPROLOL TARTRATE 50 MG TAB PO ×2 (09:15→20:31)
[2023-08-19 14:00] VITALS: BP 128/59; PULSE 79; RESP 12; TEMP 36.6; O2SAT 98
--- NOTE | 2023-08-19 16:33 | PM.IMPN ---
Progress Note: A&P Assessment and Plan (1) Acute cerebrovascular accident (CVA): Code(s): I63.9 - Cerebral infarction, unspecified Status: Acute Assessment and Plan: Patient presents with stroke like symptoms with ew deficits of L facial droop, RUE/RLE weakness, and slurred speech CT Head: cerebral atherosclerosis, chronic small vessel ischemic changes but no acute intracranial finding. CTA of Head/Neck: No acute intracranial abnormality and unremarkable head CTA. No stenosis proximal bilateral ICA. Echo showing EF 60-65% wiht LV diastolic function and mild valvular disease except mild-mod TR, mild pHTN and elevated RAP. ASA started. Neurology consulted and appreciate thier input Statin on hold givne the mild elevation of the CK. PT/OT started ST evaluated the patient and felt the patient did not need any further evaluation for dysphagia but recommended ST for communication which was ordered. Has AFib chronically and remains uncovered. Consult Cardiology to discuss the risks/benefits of resuming anticoagulation. Repeat CT brain again showing no acute findings. Brain stem CVA? Contineu PT/OT/ST d/c pending ins auth (2) Somnolence: Code(s): R40.0 - Somnolence Status: Acute Assessment and Plan: Secondary to acute CVA. CXR could not exclude mild infiltrate or atelectasis of the left lower lobe so consider PNA. Abx were not started on admission WBC 14 but normal now so probably stress response. TSH 0.34 with nomral FT4. B12/folate normal. Mental status better and now oriented. Avoid sedating medications. 08/15: resolved (3) Elevated CPK: Code(s): R74.8 - Abnormal levels of other serum enzymes Status: Acute Assessment and Plan: Patient with mildly elevated CK. Related to being immobile overnight. CK 550 and now trending down but still mildly elevated. Follow. Start Lipitor. (4) Subcutaneous abscess: Qualifiers: Site of cutaneous abscess: trunk Site of cutaneous abscess of trunk: abdominal wall Qualified Code(s): L02.211 - Cutaneous abscess of abdominal wall Code(s): L02.91 - Cutaneous abscess, unspecified Status: Acute Assessment and Plan: Right lower abd abscess that was I&D in the clinic on 07/24. There was scant drainage from the wound. Not felt to be infected Wound Care consulted and appreciate their input. (5) Atrial fibrillation: Code(s): I48.91 - Unspecified atrial fibrillation Status: Acute Assessment and Plan: Patient with chronic AFib. She was hospitalized in June for a hemorrhagic pericarditis per family and anticaogulation was stopped. Cardiology was planning to perform a watchman and was waiting for the inflammation to subside. This was scheduled for 08/22 On atenolol at home but started on metoprolol. Dose advanced today HR better controlled Cards consulted. Continue tele (6) Narcotic dependence: Code(s): F11.20 - Opioid dependence, uncomplicated Status: Acute Assessment and Plan: Patient takes [place] for pain chronically. Cyrus hold this for now but be watchful for s/sx of withdrawal. Tylenol for pain Plan Diet: heart healthy GI Prophylaxis: Pantoprazole DVT Prophylaxis: SCDs, Lovenox Code Status: DNR/DNI Subjective Date/time seen: 08/19/23 16:33 Interval history: 82yo female with AFib not on anticoagulation, HTN and CAD here for focal weakness. No overnight events noted. No chest pain or shortness of breath. No nausea, vomiting or diarrhea. No fevers or chills. Continues to have double vision. Unchanged. Review of Systems Review of Systems: 12 point review of systems was assessed and was negative except as noted in the HPI Exam Narrative: General: No acute distress, alert and oriented per baseline HEENT: Atraumatic, normocephalic, mucous membranes moist CV: Irregularly irregular, S1, S2 Lungs: Clear to
[2023-08-19 20:31] VITALS: PULSE 79
[2023-08-19] MEDS: HYDROcodone/acetaminophen (*CRX) 10-325 MG TABLET 1 TAB PO (20:35)
[2023-08-19 21:21] VITALS: BP 132/62; PULSE 79; RESP 18; TEMP 36.3; O2SAT 97
[2023-08-20] MEDS: LEVOTHYROXINE SODIUM 50 MCG TABLET PO (05:49)
[2023-08-20] MEDS: HYDROcodone/acetaminophen (*CRX) 10-325 MG TABLET 1 TAB PO ×2 (05:54→20:56)
[2023-08-20 06:00] VITALS: BP 133/73; PULSE 67; RESP 18; TEMP 36.5; O2SAT 99
[2023-08-20 08:00] VITALS: PULSE 67; RESP 18; O2SAT 99
[2023-08-20] MEDS: APIXABAN 5 MG TABLET PO ×2 (09:14→20:56)
[2023-08-20] MEDS: ASPIRIN 81 MG CHEWABLE TABLET PO (09:14)
[2023-08-20] MEDS: METOPROLOL TARTRATE 50 MG TAB PO ×2 (09:14→20:56)
[2023-08-20] MEDS: ATORVASTATIN 40 MG TABLET PO (09:14)
[2023-08-20 13:48] VITALS: BP 116/70; PULSE 78; RESP 16; TEMP 36.5; O2SAT 97
[2023-08-20 20:56] VITALS: PULSE 78
[2023-08-20 22:00] VITALS: BP 123/71; PULSE 85; RESP 18; TEMP 36.7; O2SAT 96
[2023-08-21] MEDS: HYDROcodone/acetaminophen (*CRX) 10-325 MG TABLET 1 TAB PO ×3 (05:47→21:03)
[2023-08-21] MEDS: LEVOTHYROXINE SODIUM 50 MCG TABLET PO (05:47)
[2023-08-21 06:00] VITALS: BP 140/73; PULSE 75; RESP 18; TEMP 36.4; O2SAT 100
[2023-08-21 08:38] VITALS: PULSE 76
[2023-08-21] MEDS: METOPROLOL TARTRATE 50 MG TAB PO ×2 (08:38→21:02)
[2023-08-21] MEDS: APIXABAN 5 MG TABLET PO ×2 (08:38→21:02)
[2023-08-21] MEDS: ASPIRIN 81 MG CHEWABLE TABLET PO (08:38)
[2023-08-21] MEDS: ATORVASTATIN 40 MG TABLET PO (08:38)
[2023-08-21 14:00] VITALS: BP 101/57; PULSE 74; RESP 16; TEMP 36.1; O2SAT 100
--- NOTE | 2023-08-21 15:04 | P.PNIM_ITS ---
Progress Note: A&P Assessment and Plan (1) Acute cerebrovascular accident (CVA): Code(s): I63.9 - Cerebral infarction, unspecified Status: Acute Assessment and Plan: Patient presents with stroke like symptoms with ew deficits of L facial droop, RUE/RLE weakness, and slurred speech CT Head: cerebral atherosclerosis, chronic small vessel ischemic changes but no acute intracranial finding. CTA of Head/Neck: No acute intracranial abnormality and unremarkable head CTA. No stenosis proximal bilateral ICA. Echo showing EF 60-65% wiht LV diastolic function and mild valvular disease except mild-mod TR, mild pHTN and elevated RAP. ASA started. Neurology consulted and appreciate thier input Statin on hold givne the mild elevation of the CK. PT/OT started ST evaluated the patient and felt the patient did not need any further evaluation for dysphagia but recommended ST for communication which was ordered. Has AFib chronically and remains uncovered. Consult Cardiology to discuss the risks/benefits of resuming anticoagulation. Repeat CT brain again showing no acute findings. Brain stem CVA? Contineu PT/OT/ST d/c pending ins auth (2) Somnolence: Code(s): R40.0 - Somnolence Status: Acute Assessment and Plan: Secondary to acute CVA. CXR could not exclude mild infiltrate or atelectasis of the left lower lobe so consider PNA. Abx were not started on admission WBC 14 but normal now so probably stress response. TSH 0.34 with nomral FT4. B12/folate normal. Mental status better and now oriented. Avoid sedating medications. 08/15: resolved (3) Elevated CPK: Code(s): R74.8 - Abnormal levels of other serum enzymes Status: Acute Assessment and Plan: Patient with mildly elevated CK. Related to being immobile overnight. CK 550 and now trending down but still mildly elevated. Follow. Start Lipitor. (4) Subcutaneous abscess: Qualifiers: Site of cutaneous abscess: trunk Site of cutaneous abscess of trunk: abdominal wall Qualified Code(s): L02.211 - Cutaneous abscess of abdominal wall Code(s): L02.91 - Cutaneous abscess, unspecified Status: Acute Assessment and Plan: Right lower abd abscess that was I&D in the clinic on 07/24. There was scant drainage from the wound. Not felt to be infected Wound Care consulted and appreciate their input. (5) Atrial fibrillation: Code(s): I48.91 - Unspecified atrial fibrillation Status: Acute Assessment and Plan: Patient with chronic AFib. She was hospitalized in June for a hemorrhagic pericarditis per family and anticaogulation was stopped. Cardiology was planning to perform a watchman and was waiting for the inflammation to subside. This was scheduled for 08/22 On atenolol at home but started on metoprolol. Dose advanced today HR better controlled Cards consulted. Continue tele (6) Narcotic dependence: Code(s): F11.20 - Opioid dependence, uncomplicated Status: Acute Assessment and Plan: Patient takes [place] for pain chronically. Cyrus hold this for now but be watchful for s/sx of withdrawal. Tylenol for pain Plan Diet: heart healthy GI Prophylaxis: Pantoprazole DVT Prophylaxis: SCDs, Lovenox Code Status: DNR/DNI Subjective Date/time seen: 08/21/23 15:04 Interval history: 82yo female with AFib not on anticoagulation, HTN and CAD here for focal weakness. No overnight events noted. No chest pain or shortn
[2023-08-21 21:02] VITALS: PULSE 89
[2023-08-21 22:00] VITALS: BP 127/68; PULSE 84; RESP 18; TEMP 36.5; O2SAT 98
[2023-08-22 06:00] VITALS: BP 127/62; PULSE 69; RESP 18; TEMP 36.7; O2SAT 100
[2023-08-22] MEDS: LEVOTHYROXINE SODIUM 50 MCG TABLET PO (06:03)
[2023-08-22] MEDS: HYDROcodone/acetaminophen (*CRX) 10-325 MG TABLET 1 TAB PO ×2 (06:03→13:41)
[2023-08-22 09:07] VITALS: PULSE 96
[2023-08-22] MEDS: ASPIRIN 81 MG CHEWABLE TABLET PO (09:07)
[2023-08-22] MEDS: METOPROLOL TARTRATE 50 MG TAB PO (09:07)
[2023-08-22] MEDS: PANTOPRAZOLE 40 MG TABLET PO (09:08)
[2023-08-22] MEDS: ATORVASTATIN 40 MG TABLET PO (09:08)
[2023-08-22] MEDS: APIXABAN 5 MG TABLET PO (09:08)
--- NOTE | 2023-08-22 10:09 | PM.IMPN ---
Progress Note: A&P Assessment and Plan (1) Acute cerebrovascular accident (CVA): Code(s): I63.9 - Cerebral infarction, unspecified Status: Acute Assessment and Plan: Patient presents with stroke like symptoms with new deficits of L facial droop, RUE/RLE weakness, and slurred speech CT Head: cerebral atherosclerosis, chronic small vessel ischemic changes but no acute intracranial finding. CTA of Head/Neck: No acute intracranial abnormality and unremarkable head CTA. No stenosis proximal bilateral ICA. Echo showing EF 60-65% with LV diastolic function and mild valvular disease except mild-mod TR, mild pHTN and elevated RAP. Brain stem CVA? ASA started. Neurology consulted and appreciate their input Statin was on hold given the mild elevation of the CK but now started. PT/OT started ST evaluated the patient and felt the patient did not need any further evaluation for dysphagia but recommended ST for communication which was ordered. Has AFib chronically and was uncovered. Cardiology consulted to discuss the risks/benefits of resuming anticoagulation. Repeat CT brain again showing no acute findings. Eliquis started. Continue PT/OT/ST d/c pending ins auth (2) Somnolence: Code(s): R40.0 - Somnolence Status: Acute Assessment and Plan: Secondary to acute CVA. CXR could not exclude mild infiltrate or atelectasis of the left lower lobe so consider PNA. Abx were not started on admission WBC 14 but normal now so probably stress response. TSH 0.34 with nomral FT4. B12/folate normal. Mental status better and now oriented. Avoid sedating medications. Resolved (3) Elevated CPK: Code(s): R74.8 - Abnormal levels of other serum enzymes Status: Acute Assessment and Plan: Patient with mildly elevated CK. Related to being immobile overnight. CK 550 and now trending down Follow. Continue Lipitor. (4) Subcutaneous abscess: Qualifiers: Site of cutaneous abscess: trunk Site of cutaneous abscess of trunk: abdominal wall Qualified Code(s): L02.211 - Cutaneous abscess of abdominal wall Code(s): L02.91 - Cutaneous abscess, unspecified Status: Acute Assessment and Plan: Right lower abd abscess that was I&D in the clinic on 07/24. There was scant drainage from the wound. Not felt to be infected Wound Care consulted and appreciate their input. (5) Atrial fibrillation: Code(s): I48.91 - Unspecified atrial fibrillation Status: Acute Assessment and Plan: Patient with chronic AFib. She was hospitalized in June for a hemorrhagic pericarditis per family and anticaogulation was stopped. Cardiology was planning to perform a watchman and was waiting for the inflammation to subside. This was scheduled for 08/22 On atenolol at home but started on metoprolol and dose advanced HR better controlled Cards following Eliquis added (6) Narcotic dependence: Code(s): F11.20 - Opioid dependence, uncomplicated Status: Acute Assessment and Plan: Patient takes [place] for pain chronically. This was held related to above. [place] resumed on 08/16 Plan Diet: heart healthy GI Prophylaxis: Pantoprazole DVT Prophylaxis: SCDs, Eliquis Code Status: DNR/DNI Subjective Date/time seen: 08/22/23 10:09 Interval history: 82yo female with AFib not on anticoagulation, HTN and CAD here for focal weakness. Resuming care. Chart reviewed. patient feels well. Still with garbled speech but improved. Still with double vision. She is walking with therapy. Eating well. No odynophagia or dysphagia. No chest pain or shortness of breath. Exam Narrative: AF 98.1 127/62 18 100% ra Gen - NARD HEENT - left eye patch in place Chest - CTA bilaterally, nml RR CV - RRR S1/S2 Abd - Soft, NT/ND, Positive BS Ext - No pedal edema Neuro - Alert and appropriate. speech mildly garbled. Psych - Nml mood and affect Skin
[2023-08-22 11:29] LABS: Hemoglobin 12.1 g/dL (12.0-15.0); Red Blood Count 4.58 M/mm3 (4.2-5.4); White Blood Count 8.6 K/mm3 (4.5-10.0)
[2023-08-22 11:30] LABS: Basophils Absolute Auto 0.1 K/mm3 (0.0-0.1); Basophils Percent Auto 1.2 % (0.2-1.2); Eosinophils Absolute Auto 0.8 K/mm3 (0-0.3); Eosinophils Percent Auto 9.4 % (0-4.4); Hematocrit 40.7 % (37.0-47.0); Immature Granulocyte Absolute 0.03 K/mm3 (0.00-0.031); Immature Granulocyte Percent A 0.3 % (0-0.5); Lymphocytes Absolute Auto 1.86 K/mm3 (0.9-3.2); Lymphocytes Percent Auto 21.6 % (18.3-44.2); Mean Corpuscular HGB Conc 29.7 g/dl (32-36); Mean Corpuscular Hemoglobin 26.4 pg (26-34); Mean Corpuscular Volume 88.9 fl (80-100); Mean Platelet Volume 9.2 fl (7.4-10.4); Monocytes Absolute Auto 0.7 K/mm3 (0.1-0.6); Monocytes Percent Auto 7.5 % (2.6-8.5); Neutrophils Absolute Auto 5.2 K/mm3 (1.3-6.7); Platelet Count Result 356 k/mm3 (150-375); Red Cell Distribution Width 16.2 % (11.5-14.5)
[2023-08-22 11:40] LABS: Anion Gap 4 mmol/L (8-16); Blood Urea Nitrogen 20 mg/dL (7-17); Calcium 9.9 mg/dL (8.4-10.2); Carbon Dioxide 30 mmol/L (22-30); Chloride 103 mmol/L (98-107); Estimated CRCL calculation 60 ml/min; Estimated Glomerular Filt Rate > 60; Glucose 90 mg/dL (65-110); Potassium 4.9 mmol/L (3.4-5.0); Sodium 137 mmol/L (137-145)
[2023-08-22 11:51] LABS: Hypochromasia 1+ (NORMAL); Platelet Estimate Adequate (Adequate); Schistocytes None Seen (NORMAL)
[2023-08-22 14:00] VITALS: BP 199/70; PULSE 78; RESP 18; TEMP 36.1; O2SAT 98
--- NOTE | 2023-08-25 06:52 | PM.DS ---
DS: Admitting Diagnosis Discharge Date 08/22/23 Admitting Diagnosis Weakness DS: Discharge Diagnosis Discharge Diagnosis (1) Acute cerebrovascular accident (CVA): Code(s): I63.9 - Cerebral infarction, unspecified Status: Acute (2) Somnolence: Code(s): R40.0 - Somnolence Status: Acute (3) Elevated CPK: Code(s): R74.8 - Abnormal levels of other serum enzymes Status: Acute (4) Subcutaneous abscess: Qualifiers: Site of cutaneous abscess: trunk Site of cutaneous abscess of trunk: abdominal wall Qualified Code(s): L02.211 - Cutaneous abscess of abdominal wall Code(s): L02.91 - Cutaneous abscess, unspecified Status: Acute (5) Atrial fibrillation: Code(s): I48.91 - Unspecified atrial fibrillation Status: Acute (6) Narcotic dependence: Code(s): F11.20 - Opioid dependence, uncomplicated Status: Acute DS: Summary Hospital Course Reason for hospitalization: 82yo female with AFib not on anticoagulation, HTN and CAD here for focal weakness. Please see H&P for details. Hospital Course: Patient presents with stroke like symptoms with new deficits of left facial droop, RUE/RLE weakness, and slurred speech. CT Head: cerebral atherosclerosis, chronic small vessel ischemic changes but no acute intracranial finding. CTA of Head/Neck showing no acute intracranial abnormality and unremarkable head CTA. No stenosis proximal bilateral ICA. Echo showing EF 60-65% with LV diastolic function and mild valvular disease except mild-mod TR, mild pHTN and elevated RAP.?Consider brain stem CVA. ASA started. Neurology consulted and appreciate their input. Statin was on hold given the mild elevation of the CK but then started. PT/OT started. Speech therapy evaluated the patient and felt the patient did not need any further evaluation for dysphagia but recommended ST for communication which was ordered. Has AFib chronically and was uncovered. Cardiology was consulted to discuss the risks/benefits of resuming anticoagulation. Repeat CT brain again showing no acute findings. Eliquis started. Somnolence was secondary to acute CVA. CXR could not exclude mild infiltrate or atelectasis of the left lower lobe so consider PNA.? Abx were not started on admission. WBC 14 but normal now so probably stress response. TSH 0.34 with normal FT4. B12/folate normal. Mental status improved and now oriented. Patient with mildly elevated CK. Related to being immobile overnight.?CK 550 and trended down. She has a known subcutaneous abscess noted right lower abdomen that was I&D in the clinic on 07/24. There was scant drainage from the wound and not felt to be infected. Wound Care consulted and appreciate their input. Patient with chronic AFib. She was hospitalized in June for a hemorrhagic pericarditis per family and anticoagulation was stopped. Cardiology was planning to perform a watchman and was waiting for the inflammation to subside. She was on atenolol at home but started on metoprolol for rate control and dose advanced. Cardiology followed along. She overall did well and was able to be discharged to the rehab facility on 08/25/23. Status at Discharge Cognitive/behavioral status at discharge: stable Time Spent with Patient Time attestation: Total time spent providing and/or coordinating discharge services: 34 minutes Time spent: Greater than 30 minutes Exam Narrative: AF 98.1 127/62 18 100% ra Gen - NARD HEENT - left eye patch in place Chest - CTA bilaterally, nml RR CV - RRR S1/S2 Abd - Soft, NT/ND, Positive BS Ext - No pedal edema Neuro - Alert and appropriate. speech mildly garbled. Psych - Nml mood and affect Skin - Warm and dry Discharge Plan Discharge Attending physician on discharge: Kayley Ballard Consulting providers: Silvina Nix; Erin Burger; Law Nair; Maxx Iglesias; Darrell Ngo; Una Galeano; Bayron Clemente; Mikal Rae
== END 2023-08-22 16:15 | DRG 65 ==
LOC: ANHED 10:52 → ANH3MEDSUR 11:50
PROVIDERS: Internal Medicine Cardiovascular Disease; Student in an Organized Health Care Education/Training Program; Admitting Provider Internal Medicine; Emergency Provider Emergency Medicine; PCP Family Medicine; Visit Provider Internal Medicine
DX: I63.9 Cerebral infarction, unspecified (principal); F11.20 Opioid dependence, uncomplicated; G81.91 Hemiplegia, unspecified affecting right dominant side; I48.20 Chronic atrial fibrillation, unspecified; L02.211 Cutaneous abscess of abdominal wall; R29.810 Facial weakness; R47.81 Slurred speech; R40.0 Somnolence; R29.707 NIHSS score 7; I25.10 Atherosclerotic heart disease of native coronary artery without angina pectoris; I10 Essential (primary) hypertension; D64.9 Anemia, unspecified; M19.90 Unspecified osteoarthritis, unspecified site; K21.9 Gastro-esophageal reflux disease without esophagitis; M48.00 Spinal stenosis, site unspecified; Z96.653 Presence of artificial knee joint, bilateral; Z66 Do not resuscitate; Z86.718 Personal history of other venous thrombosis and embolism; Z90.49 Acquired absence of other specified parts of digestive tract; Z95.0 Presence of cardiac pacemaker; Z90.722 Acquired absence of ovaries, bilateral; Z90.710 Acquired absence of both cervix and uterus
CPT/HCPCS: 36415; 70450; 70496; 70498; 71045; 73030; 73080; 80048; 80053; 80061; 81003; 82550; 82607; 82746; 82948; 83036; 83605; 83735; 84100; 84439; 84443; 84480; 84484; 85025; 85027; 85610; 85730; 92507; 92522; 92610; 93005; 93306; 96375; 97110; 97112; 97116; 97161; 97165; 97530; 97535; 99285; A9270; C9113; J1650; J3475; J7030; J7120; Q9967